=== PATIENT | male | born 1985 | race Caucasian/White ===

== ENCOUNTER 2016-09-08 19:45 | Inpatient (IN) | payer MEDICAID, OTHER ==
[~2016-09-08] VITALS: Ht 170.2 cm; Wt 84.1 kg
[~2016-09-08 19:45] MED LIST: LORA2TAB2 PO; SERT50TA12 PO; TRAZ150 PO
[2016-09-09 02:04] VITALS: BP 135/76
[2016-09-09 03:15] VITALS: BP 135/76
[2016-09-09] MEDS ORDERED: LEVO50 PO (03:51)
[2016-09-09] MEDS ORDERED: LURA40 PO (03:51)
[2016-09-09] MEDS ORDERED: DIVA500T35 PO (03:51)
[2016-09-09] MEDS ORDERED: TRAZ-147 PO (03:51)
[2016-09-09] MEDS ORDERED: SERT100T12 PO (03:51)
[2016-09-09] MEDS ORDERED: QUET300T2 PO (03:51)
[2016-09-09] MEDS ORDERED: PNEUMOCOCCAL VACCINE POLYVALENT 0.5 ML VIAL [PPSV23] IM ONE (04:00)
[2016-09-09] MEDS ORDERED: ACETAMINOPHEN 325 MG TABLET PO PRN (09:30)
[2016-09-09] MEDS ORDERED: LOPERAMIDE HCL 2 MG CAPSULE PO PRN (09:30)
[2016-09-09] MEDS ORDERED: MAG HYDROX/AL HYDROX/SIMETH ES 30 ML SUSPENSION UDCUP PO PRN (09:30)
[2016-09-09] MEDS ORDERED: ONDANSETRON HCL 4 MG TABLET PO PRN (09:30)
[2016-09-09] MEDS ORDERED: PETROLATUM,WHITE 71 GM JELLY TP PRN (09:30)
[2016-09-09] MEDS ORDERED: CloNIDine HCL 0.1 MG TABLET PO PRN (09:30)
[2016-09-09] MEDS ORDERED: MAGNESIUM HYDROXIDE SUSPENSION 30 ML UDCUP PO PRN (09:30)
[2016-09-09] MEDS ORDERED: BENZOCAINE/MENTHOL LOZENGE MM PRN (09:30)
[2016-09-09] MEDS ORDERED: BACITRACIN 28.4 GM OINTMENT TP PRN (09:30)
[2016-09-09] MEDS ORDERED: ALBUTEROL SULFATE HFA 90 MCG/PUFF 8 GM INHALER IH PRN (09:30)
[2016-09-09 12:29] VITALS: BP 125/79
[2016-09-09] MEDS: IBUPROFEN 600 MG TABLET PO PRN (12:49)
[2016-09-09 16:11] VITALS: BP 131/63
[2016-09-09] MEDS: LORazepam 2 MG TABLET PO PRN (18:09)
[2016-09-09] MEDS: ZOLPIDEM TARTRATE 10 MG TABLET PO PRN (20:11)
[2016-09-09] MEDS ORDERED: OLANZapine 5 MG TABLET PO SCH (21:00)
[2016-09-10 00:09] VITALS: BP 108/67
[2016-09-10 08:39] LABS: BASOPHILS % (AUTO) 0.4 % (0.0-2.0); EOSINOPHILS % (AUTO) 2.9 % (1.0-6.0); HEMATOCRIT 36.5 % (41-53); HEMOGLOBIN 12.3 g/dL (13.5-17.5); LYMPHOCYTES # (AUTO) 1.6 K/uL (1.0-4.8); LYMPHOCYTES % (AUTO) 34.3 % (22.0-44.0); MEAN CORPUSCULAR HEMOGLOBIN 31.5 pg (26.0-34.0); MEAN CORPUSCULAR HGB CONC 33.6 G/dL (31.0-37.0); MEAN CORPUSCULAR VOLUME 94 fL (80-100); MONOCYTES # (AUTO) 0.4 K/uL (0.1-1.0); MONOCYTES % (AUTO) 8.9 % (2.0-9.0); NEUTROPHILS # (AUTO) 2.6 K/uL (1.8-7.7); NEUTROPHILS % (AUTO) 53.5 % (40.0-70.0); PLATELET COUNT (AUTO) 211 K/uL (150-450); RED CELL DISTRIBUTION WIDTH 12.6 % (11.5-14.5); WHITE BLOOD COUNT (AUTO) 4.8 K/uL (4.5-11.0)
[2016-09-10] MEDS: FLUoxetine HCL 20 MG CAPSULE PO SCH (08:42)
[2016-09-10 08:49] VITALS: BP 108/60
[2016-09-10 09:02] LABS: APPEARANCE,URINE CLEAR (CLEAR); GLUCOSE, URINE (UA) NEGATIVE (NEGATIVE); KETONES,URINE NEGATIVE (NEGATIVE); LEUKOCYTE ESTERASE ,URINE NEGATIVE (NEGATIVE); OCCULT BLOOD,URINE NEGATIVE (NEGATIVE); PH,URINE 6.5 (5.0-8.0); PROTEIN,URINE NEGATIVE (NEGATIVE)
[2016-09-10 09:05] LABS: ADD UA MICROSCOPIC NO
[2016-09-10 09:21] LABS: ALANINE AMINOTRANSFERASE 44 U/L (12-78); ALBUMIN 3.9 g/dL (3.4-5.0); ANION GAP 10 mmol/L (8-16); ASPARTATE AMINOTRANSFERASE 29 U/L (15-37); BILIRUBIN,TOTAL 0.3 mg/dL (0.1-1.0); CALCIUM, TOTAL 8.4 mg/dL (8.8-10.5); CARBON DIOXIDE 26 mmol/L (22-29); CHLORIDE 102 mmol/L (98-107); CREATININE 0.89 mg/dL (0.60-1.30); GLOMERULAR FILTR. RATE CALC > 60 mL/min (>60); POTASSIUM 4.7 mmol/L (3.5-5.1); SODIUM SERUM 138 mmol/L (136-145); THYROID STIMULATING HORMONE 2.96 uIU/mL (0.36-3.74); TOTAL PROTEIN, SERUM 7.1 g/dL (6.4-8.2); UREA NITROGEN, BLOOD 18 mg/dL (7-18)
[2016-09-10 10:12] LABS: VALPROIC ACID < 3 mcg/mL (50-100)
[2016-09-10] MEDS: LORazepam 2 MG TABLET PO PRN (14:52)
[2016-09-10 16:29] VITALS: BP 133/76
[2016-09-10] MEDS: IBUPROFEN 600 MG TABLET PO PRN (17:05)
[2016-09-10] MEDS: ZOLPIDEM TARTRATE 10 MG TABLET PO PRN (20:40)
[2016-09-10] MEDS ORDERED: OLANZapine 10 MG TABLET PO SCH (21:00)
[2016-09-11 00:12] VITALS: BP 110/62
[2016-09-11] MEDS ORDERED: FERROUS SULFATE 325 MG EC TABLET PO SCH (07:00)
[2016-09-11 08:36] VITALS: BP 127/76
[2016-09-11] MEDS: FLUoxetine HCL 20 MG CAPSULE PO SCH (08:45)
[2016-09-11] MEDS ORDERED: OLAN10TA3 PO (08:57)
[2016-09-11] MEDS ORDERED: FLUO-191 PO (08:57)
[2016-09-11] MEDS ORDERED: FERR-89 PO (08:57)
[2016-09-11] MEDS: IBUPROFEN 600 MG TABLET PO PRN (11:30)
[2016-10-25] MEDS ORDERED: FERR-89 PO (17:58)
== END 2016-09-11 12:05 | disposition home or self-care (01) | DRG 750 ==
LOC: B2S 09-09 02:47
PROVIDERS: ADMIT Psychiatry & Neurology Psychiatry; ATTEND Psychiatry & Neurology Psychiatry
DX: F25.0 Schizoaffective disorder, bipolar type (principal); F17.210 Nicotine dependence, cigarettes, uncomplicated; J45.909 Unspecified asthma, uncomplicated; G47.00 Insomnia, unspecified; K59.00 Constipation, unspecified; Z91.5 Personal history of self-harm; Z90.49 Acquired absence of other specified parts of digestive tract; Z88.8 Allergy status to other drugs, medicaments and biological substances; Z79.51 Long term (current) use of inhaled steroids; Z79.899 Other long term (current) drug therapy
CPT/HCPCS: 80307; 84443; Q0162

== ENCOUNTER 2016-10-01 16:46 | Inpatient (IN) | payer MEDICAID ==
[~2016-10-01] VITALS: Ht 172.7 cm; Wt 82.7 kg
[~2016-10-01 16:46] MED LIST changes: +FERR-89 PO; +FLUO-191 PO; -LORA2TAB2 PO; +OLAN10TA3 PO; -SERT50TA12 PO; -TRAZ150 PO
[2016-10-01 17:22] VITALS: BP 126/77
[2016-10-01] MEDS ORDERED: OLANZapine 5 MG RAPDIS TABLET PO PRN (17:30)
[2016-10-01 18:30] VITALS: BP 133/73
[2016-10-01] MEDS ORDERED: IBUPROFEN 600 MG TABLET PO PRN (19:45)
[2016-10-01] MEDS ORDERED: PNEUMOCOCCAL VACCINE POLYVALENT 0.5 ML VIAL [PPSV23] IM ONE (20:00)
[2016-10-01] MEDS: ZOLPIDEM TARTRATE 10 MG TABLET PO PRN (21:03)
[2016-10-02 08:47] VITALS: BP 109/65
[2016-10-02 10:33] LABS: GLUCOSE, URINE (UA) NEGATIVE (NEGATIVE); KETONES,URINE NEGATIVE (NEGATIVE); LEUKOCYTE ESTERASE ,URINE NEGATIVE (NEGATIVE); OCCULT BLOOD,URINE NEGATIVE (NEGATIVE); PH,URINE 5.5 (5.0-8.0); PROTEIN,URINE NEGATIVE (NEGATIVE)
[2016-10-02 11:25] LABS: ADD UA MICROSCOPIC YES
[2016-10-02 11:26] LABS: APPEARANCE,URINE SLIGHTLY CLOUDY (CLEAR)
[2016-10-02 11:28] LABS: RBC,URINE None Seen /HPF (0-2); WBC,URINE None Seen /HPF (0-5)
[2016-10-02 11:29] LABS: CALCIUM OXALATE CRYSTALS,UR Few /LPF (None Seen); SQUAMOUS EPITHELIAL CELL,UR Rare /LPF (None Seen)
[2016-10-02] MEDS: FLUoxetine HCL 20 MG CAPSULE PO SCH (12:23)
[2016-10-02] MEDS ORDERED: MAGNESIUM HYDROXIDE SUSPENSION 30 ML UDCUP PO PRN (14:00)
[2016-10-02] MEDS ORDERED: BACITRACIN 28.4 GM OINTMENT TP PRN (14:00)
[2016-10-02] MEDS ORDERED: BENZOCAINE/MENTHOL LOZENGE MM PRN (14:00)
[2016-10-02] MEDS ORDERED: CloNIDine HCL 0.1 MG TABLET PO PRN (14:00)
[2016-10-02] MEDS ORDERED: LOPERAMIDE HCL 2 MG CAPSULE PO PRN (14:00)
[2016-10-02] MEDS ORDERED: ONDANSETRON HCL 4 MG TABLET PO PRN (14:00)
[2016-10-02] MEDS ORDERED: PETROLATUM,WHITE 71 GM JELLY TP PRN (14:00)
[2016-10-02] MEDS ORDERED: ALBUTEROL SULFATE HFA 90 MCG/PUFF 8 GM INHALER IH PRN (14:00)
[2016-10-02] MEDS ORDERED: MAG HYDROX/AL HYDROX/SIMETH ES 30 ML SUSPENSION UDCUP PO PRN (14:00)
[2016-10-02] MEDS ORDERED: ACETAMINOPHEN 325 MG TABLET PO PRN (14:00)
[2016-10-02 14:01] VITALS: BP 133/52
[2016-10-02 16:16] VITALS: BP 118/77
[2016-10-02] MEDS: LORazepam 2 MG TABLET PO PRN (19:10)
[2016-10-02] MEDS: ZOLPIDEM TARTRATE 10 MG TABLET PO PRN (20:11)
[2016-10-02] MEDS: IBUPROFEN 600 MG TABLET PO PRN (20:12)
[2016-10-02] MEDS: OLANZapine 10 MG TABLET PO SCH (20:12)
[2016-10-03 08:37] LABS: BASOPHILS # (AUTO) 0.02 K/uL (0.00-0.20); BASOPHILS % (AUTO) 0.4 % (0.0-2.0); EOSINOPHILS # (AUTO) 0.19 K/uL (0.00-0.70); EOSINOPHILS % (AUTO) 4.03 % (1.0-6.0); HEMATOCRIT 37.2 % (41-53); HEMOGLOBIN 12.8 g/dL (13.5-17.5); LYMPHOCYTES # (AUTO) 1.4 K/uL (1.0-4.8); LYMPHOCYTES % (AUTO) 29.3 % (22.0-44.0); MEAN CORPUSCULAR HEMOGLOBIN 31.6 pg (26.0-34.0); MEAN CORPUSCULAR HGB CONC 34.3 G/dL (31.0-37.0); MEAN CORPUSCULAR VOLUME 92 fL (80-100); MONOCYTES # (AUTO) 0.4 K/uL (0.1-1.0); MONOCYTES % (AUTO) 7.9 % (2.0-9.0); NEUTROPHILS # (AUTO) 2.8 K/uL (1.8-7.7); NEUTROPHILS % (AUTO) 58.3 % (40.0-70.0); PLATELET COUNT (AUTO) 203 K/uL (150-450); RED BLOOD CELL COUNT(AUTO) 4.03 MIL/uL (4.50-5.90); RED CELL DISTRIBUTION WIDTH 12.9 % (11.5-14.5); WHITE BLOOD COUNT (AUTO) 4.8 K/uL (4.5-11.0)
[2016-10-03 09:26] VITALS: BP 124/72
[2016-10-03] MEDS: FLUoxetine HCL 20 MG CAPSULE PO SCH (09:44)
[2016-10-03 10:02] LABS: ALANINE AMINOTRANSFERASE 45 U/L (12-78); ALBUMIN 3.7 g/dL (3.4-5.0); ANION GAP 8 mmol/L (8-16); ASPARTATE AMINOTRANSFERASE 38 U/L (15-37); BILIRUBIN,TOTAL 0.2 mg/dL (0.1-1.0); CALCIUM, TOTAL 7.7 mg/dL (8.8-10.5); CARBON DIOXIDE 27 mmol/L (22-29); CHLORIDE 105 mmol/L (98-107); CREATININE 0.83 mg/dL (0.60-1.30); GLOMERULAR FILTR. RATE CALC > 60 mL/min (>60); POTASSIUM 4.2 mmol/L (3.5-5.1); SODIUM SERUM 140 mmol/L (136-145); TOTAL PROTEIN, SERUM 7.1 g/dL (6.4-8.2); UREA NITROGEN, BLOOD 14 mg/dL (7-18)
[2016-10-03 14:20] VITALS: BP 124/82
[2016-10-03] MEDS: IBUPROFEN 600 MG TABLET PO PRN (14:20)
[2016-10-03 16:17] VITALS: BP 111/68
[2016-10-03] MEDS: LORazepam 2 MG TABLET PO PRN (17:43)
[2016-10-03] MEDS: OLANZapine 10 MG TABLET PO SCH (20:03)
[2016-10-03] MEDS: ZOLPIDEM TARTRATE 10 MG TABLET PO PRN (20:04)
[2016-10-04 03:37] VITALS: BP 116/87
[2016-10-04 08:52] VITALS: BP 116/62
[2016-10-04] MEDS: FLUoxetine HCL 20 MG CAPSULE PO SCH (09:10)
[2016-10-04] MEDS: IBUPROFEN 600 MG TABLET PO PRN (09:11)
[2016-10-25] MEDS ORDERED: FERR-89 PO (17:58)
== END 2016-10-04 15:05 | disposition home or self-care (01) | DRG 750 ==
LOC: B2S 17:32
PROVIDERS: ADMIT Psychiatry & Neurology Psychiatry; ATTEND Psychiatry & Neurology Psychiatry
DX: F25.0 Schizoaffective disorder, bipolar type (principal); F41.9 Anxiety disorder, unspecified; J45.909 Unspecified asthma, uncomplicated; G47.00 Insomnia, unspecified; K59.00 Constipation, unspecified; R51 Headache; F17.210 Nicotine dependence, cigarettes, uncomplicated; Z90.49 Acquired absence of other specified parts of digestive tract; Z71.6 Tobacco abuse counseling; Z91.018 Allergy to other foods; Z79.899 Other long term (current) drug therapy; Z28.21 Immunization not carried out because of patient refusal
CPT/HCPCS: 80307; 87081; 90471

== ENCOUNTER 2016-10-22 12:50 | Inpatient (IN) | payer MEDICAID ==
[~2016-10-22] VITALS: Ht 175.3 cm; Wt 81.2 kg
[~2016-10-22 12:50] MED LIST changes: -FERR-89 PO
[2016-10-22 14:30] VITALS: BP 115/69
[2016-10-22] MEDS ORDERED: ZOLPIDEM TARTRATE 10 MG TABLET PO PRN (15:00)
[2016-10-22] MEDS ORDERED: LORazepam 2 MG TABLET PO PRN (15:00)
[2016-10-22] MEDS ORDERED: OLANZapine 5 MG RAPDIS TABLET PO PRN (15:00)
[2016-10-22 19:44] VITALS: BP 129/71
[2016-10-22] MEDS: OLANZapine 10 MG TABLET PO SCH (20:41)
[2016-10-23 05:14] VITALS: BP 125/78
[2016-10-23 08:40] LABS: APPEARANCE,URINE CLEAR (CLEAR); GLUCOSE, URINE (UA) NEGATIVE (NEGATIVE); KETONES,URINE NEGATIVE (NEGATIVE); LEUKOCYTE ESTERASE ,URINE NEGATIVE (NEGATIVE); OCCULT BLOOD,URINE NEGATIVE (NEGATIVE); PROTEIN,URINE NEGATIVE (NEGATIVE)
[2016-10-23 08:44] LABS: ADD UA MICROSCOPIC NO
[2016-10-23] MEDS: FLUoxetine HCL 20 MG CAPSULE PO SCH (09:04)
[2016-10-23] MEDS ORDERED: ONDANSETRON HCL 4 MG TABLET PO PRN (10:30)
[2016-10-23] MEDS ORDERED: PETROLATUM,WHITE 71 GM JELLY TP PRN (10:30)
[2016-10-23] MEDS ORDERED: BACITRACIN 28.4 GM OINTMENT TP PRN (10:30)
[2016-10-23] MEDS ORDERED: BENZOCAINE/MENTHOL LOZENGE MM PRN (10:30)
[2016-10-23] MEDS ORDERED: MAGNESIUM HYDROXIDE SUSPENSION 30 ML UDCUP PO PRN (10:30)
[2016-10-23] MEDS ORDERED: MAG HYDROX/AL HYDROX/SIMETH ES 30 ML SUSPENSION UDCUP PO PRN (10:30)
[2016-10-23] MEDS ORDERED: CloNIDine HCL 0.1 MG TABLET PO PRN (10:30)
[2016-10-23] MEDS ORDERED: ALBUTEROL SULFATE HFA 90 MCG/PUFF 8 GM INHALER IH PRN (10:30)
[2016-10-23] MEDS ORDERED: LOPERAMIDE HCL 2 MG CAPSULE PO PRN (10:30)
[2016-10-23 16:22] VITALS: BP 137/81
[2016-10-23] MEDS: IBUPROFEN 600 MG TABLET PO PRN (16:52)
[2016-10-23 17:50] VITALS: BP_SYST 109; BP_SYST 126; BP_DIAS 72; BP_DIAS 74
[2016-10-23] MEDS: OLANZapine 10 MG TABLET PO SCH (20:00)
[2016-10-24 06:42] VITALS: BP 114/74
[2016-10-24 07:57] LABS: BASOPHILS % (AUTO) 0.3 % (0.0-2.0); EOSINOPHILS % (AUTO) 3.7 % (1.0-6.0); HEMATOCRIT 39.9 % (41-53); HEMOGLOBIN 13.4 g/dL (13.5-17.5); LYMPHOCYTES # (AUTO) 1.9 K/uL (1.0-4.8); LYMPHOCYTES % (AUTO) 37.6 % (22.0-44.0); MEAN CORPUSCULAR HEMOGLOBIN 31.5 pg (26.0-34.0); MEAN CORPUSCULAR HGB CONC 33.6 G/dL (31.0-37.0); MEAN CORPUSCULAR VOLUME 94 fL (80-100); MONOCYTES # (AUTO) 0.4 K/uL (0.1-1.0); MONOCYTES % (AUTO) 7.8 % (2.0-9.0); NEUTROPHILS # (AUTO) 2.6 K/uL (1.8-7.7); NEUTROPHILS % (AUTO) 50.6 % (40.0-70.0); PLATELET COUNT (AUTO) 193 K/uL (150-450); RED BLOOD CELL COUNT(AUTO) 4.25 MIL/uL (4.50-5.90); RED CELL DISTRIBUTION WIDTH 13.3 % (11.5-14.5); WHITE BLOOD COUNT (AUTO) 5.2 K/uL (4.5-11.0)
[2016-10-24 08:19] LABS: ALANINE AMINOTRANSFERASE 52 U/L (12-78); ALBUMIN 3.9 g/dL (3.4-5.0); ANION GAP 10 mmol/L (8-16); ASPARTATE AMINOTRANSFERASE 31 U/L (15-37); BILIRUBIN,TOTAL 0.2 mg/dL (0.1-1.0); CALCIUM, TOTAL 8.4 mg/dL (8.8-10.5); CARBON DIOXIDE 27 mmol/L (22-29); CHLORIDE 102 mmol/L (98-107); CREATININE 0.78 mg/dL (0.60-1.30); GLOMERULAR FILTR. RATE CALC > 60 mL/min (>60); POTASSIUM 4.7 mmol/L (3.5-5.1); SODIUM SERUM 139 mmol/L (136-145); TOTAL PROTEIN, SERUM 7.5 g/dL (6.4-8.2); UREA NITROGEN, BLOOD 21 mg/dL (7-18)
[2016-10-24 08:35] VITALS: BP 131/78
[2016-10-24] MEDS: FLUoxetine HCL 20 MG CAPSULE PO SCH (08:58)
[2016-10-24] MEDS: IBUPROFEN 600 MG TABLET PO PRN (14:52)
[2016-10-24 16:08] VITALS: BP 132/67
[2016-10-24] MEDS: OLANZapine 10 MG TABLET PO SCH (20:02)
[2016-10-24 21:40] VITALS: BP 127/73
[2016-10-24] MEDS: ACETAMINOPHEN 325 MG TABLET PO PRN (21:46)
[2016-10-25 06:33] VITALS: BP 101/64
[2016-10-25] MEDS: FERROUS SULFATE 325 MG EC TABLET PO SCH ×2 (06:39→16:11)
[2016-10-25] MEDS: FLUoxetine HCL 20 MG CAPSULE PO SCH (10:01)
[2016-10-25 12:55] VITALS: BP 121/70
[2016-10-25] MEDS: ACETAMINOPHEN 325 MG TABLET PO PRN (12:55)
[2016-10-25 16:00] VITALS: BP 115/75
[2016-10-25] MEDS ORDERED: FERS325 PO (17:58)
[2016-10-25 20:34] VITALS: BP 122/73
[2016-10-25] MEDS: IBUPROFEN 600 MG TABLET PO PRN (20:34)
[2016-10-25] MEDS: OLANZapine 10 MG TABLET PO SCH (20:34)
[2016-10-26] MEDS: FERROUS SULFATE 325 MG EC TABLET PO SCH (06:37)
[2016-10-26 08:43] VITALS: BP 121/69
[2016-10-26] MEDS: FLUoxetine HCL 20 MG CAPSULE PO SCH (08:59)
== END 2016-10-26 13:30 | disposition home or self-care (01) | DRG 750 ==
LOC: B2S 15:03
PROVIDERS: ADMIT Psychiatry & Neurology Psychiatry; ATTEND Psychiatry & Neurology Psychiatry
DX: F25.0 Schizoaffective disorder, bipolar type (principal); R45.851 Suicidal ideations; E58 Dietary calcium deficiency; F17.210 Nicotine dependence, cigarettes, uncomplicated; K59.00 Constipation, unspecified; Z62.819 Personal history of unspecified abuse in childhood; D64.9 Anemia, unspecified; J45.909 Unspecified asthma, uncomplicated; Z71.6 Tobacco abuse counseling; Z90.49 Acquired absence of other specified parts of digestive tract; Z91.018 Allergy to other foods; Z79.899 Other long term (current) drug therapy; Z63.0 Problems in relationship with spouse or partner
CPT/HCPCS: 80307; 87081; J3535

== ENCOUNTER 2016-11-13 18:32 | Inpatient (IN) | payer MEDICAID, OTHER ==
[~2016-11-13] VITALS: Ht 175.3 cm; Wt 82.2 kg
[~2016-11-13 18:32] MED LIST changes: +FERS325 PO
[2016-11-13] MEDS ORDERED: LURA40 PO (21:15)
[2016-11-13] MEDS ORDERED: OLAN2.5T3 PO (21:15)
[2016-11-13] MEDS ORDERED: QUET25TA PO (21:15)
[2016-11-13] MEDS ORDERED: DIVA125T PO (21:15)
[2016-11-13] MEDS ORDERED: PALI156D IM (21:15)
[2016-11-13 22:11] LABS: BASOPHILS % (AUTO) 0.3 % (0.0-2.0); EOSINOPHILS % (AUTO) 5.3 % (1.0-6.0); HEMATOCRIT 39.6 % (41-53); HEMOGLOBIN 13.1 g/dL (13.5-17.5); LYMPHOCYTES # (AUTO) 2.2 K/uL (1.0-4.8); LYMPHOCYTES % (AUTO) 38.1 % (22.0-44.0); MEAN CORPUSCULAR HGB CONC 33.2 G/dL (31.0-37.0); MEAN CORPUSCULAR VOLUME 94 fL (80-100); MONOCYTES # (AUTO) 0.5 K/uL (0.1-1.0); MONOCYTES % (AUTO) 8.6 % (2.0-9.0); NEUTROPHILS # (AUTO) 2.7 K/uL (1.8-7.7); NEUTROPHILS % (AUTO) 47.7 % (40.0-70.0); PLATELET COUNT (AUTO) 203 K/uL (150-450); RED BLOOD CELL COUNT(AUTO) 4.23 MIL/uL (4.50-5.90); RED CELL DISTRIBUTION WIDTH 13.1 % (11.5-14.5); WHITE BLOOD COUNT (AUTO) 5.7 K/uL (4.5-11.0)
[2016-11-13 22:33] LABS: ANION GAP 12 mmol/L (8-16); CALCIUM, TOTAL 8.9 mg/dL (8.8-10.5); CARBON DIOXIDE 27 mmol/L (22-29); CHLORIDE 102 mmol/L (98-107); CREATININE 0.86 mg/dL (0.60-1.30); GLOMERULAR FILTR. RATE CALC > 60 mL/min (>60); POTASSIUM 4.3 mmol/L (3.5-5.1); SODIUM SERUM 141 mmol/L (136-145); UREA NITROGEN, BLOOD 13 mg/dL (7-18)
[2016-11-13 22:45] LABS: ALBUMIN 4.1 g/dL (3.4-5.0); ASPARTATE AMINOTRANSFERASE 30 U/L (15-37); BILIRUBIN,TOTAL 0.3 mg/dL (0.1-1.0); TOTAL PROTEIN, SERUM 7.7 g/dL (6.4-8.2)
[2016-11-13 22:57] LABS: ALANINE AMINOTRANSFERASE 45 U/L (12-78)
[2016-11-14] MEDS ORDERED: LORazepam 2 MG TABLET PO PRN (01:00)
[2016-11-14] MEDS ORDERED: HALOPERIDOL 5 MG TABLET PO PRN (01:00)
[2016-11-14 16:34] VITALS: BP 123/70
[2016-11-14] MEDS: ZOLPIDEM TARTRATE 10 MG TABLET PO PRN (20:05)
[2016-11-15] MEDS ORDERED: PNEUMOCOCCAL VACCINE POLYVALENT 0.5 ML VIAL [PPSV23] IM ONE (01:30)
[2016-11-15] MEDS ORDERED: MAG HYDROX/AL HYDROX/SIMETH ES 30 ML SUSPENSION UDCUP PO PRN (07:45)
[2016-11-15] MEDS ORDERED: MAGNESIUM HYDROXIDE SUSPENSION 30 ML UDCUP PO PRN (07:45)
[2016-11-15] MEDS ORDERED: ONDANSETRON HCL 4 MG TABLET PO PRN (07:45)
[2016-11-15] MEDS ORDERED: BENZOCAINE/MENTHOL LOZENGE MM PRN (07:45)
[2016-11-15] MEDS ORDERED: PETROLATUM,WHITE 71 GM JELLY TP PRN (07:45)
[2016-11-15] MEDS ORDERED: ACETAMINOPHEN 325 MG TABLET PO PRN (07:45)
[2016-11-15] MEDS ORDERED: LOPERAMIDE HCL 2 MG CAPSULE PO PRN (07:45)
[2016-11-15] MEDS ORDERED: CloNIDine HCL 0.1 MG TABLET PO PRN (07:45)
[2016-11-15] MEDS ORDERED: ALBUTEROL SULFATE HFA 90 MCG/PUFF 8 GM INHALER IH PRN (07:45)
[2016-11-15 08:15] VITALS: BP 128/80
[2016-11-15] MEDS: BACITRACIN 28.4 GM OINTMENT TP PRN (11:29)
[2016-11-15 13:07] VITALS: BP 125/75
[2016-11-15] MEDS: IBUPROFEN 600 MG TABLET PO PRN (13:08)
[2016-11-15 14:08] VITALS: BP 127/75
[2016-11-15 16:07] VITALS: BP 135/86
[2016-11-15] MEDS: HALOPERIDOL 5 MG TABLET PO SCH (17:17)
[2016-11-15] MEDS: ZOLPIDEM TARTRATE 10 MG TABLET PO PRN (20:01)
[2016-11-16 08:23] VITALS: BP 131/69
[2016-11-16] MEDS: FLUoxetine HCL 20 MG CAPSULE PO SCH (09:11)
[2016-11-16] MEDS: HALOPERIDOL 5 MG TABLET PO SCH (09:11)
[2016-11-16] MEDS: IBUPROFEN 600 MG TABLET PO PRN (11:12)
[2016-11-16] MEDS ORDERED: DiphenhydrAMINE HCL 50 MG/ML VIAL IM ONE (15:00)
[2016-11-16 16:00] VITALS: BP 110/65
[2016-11-16] MEDS: BENZTROPINE MESYLATE 0.5 MG TABLET PO SCH (20:29)
[2016-11-16] MEDS: ZOLPIDEM TARTRATE 10 MG TABLET PO PRN (20:29)
[2016-11-17] MEDS: FERROUS SULFATE 325 MG EC TABLET PO SCH ×2 (06:36→16:16)
[2016-11-17 06:59] VITALS: BP 112/65
[2016-11-17 08:17] VITALS: BP 116/58
[2016-11-17] MEDS: FLUoxetine HCL 20 MG CAPSULE PO SCH (08:42)
[2016-11-17] MEDS: BENZTROPINE MESYLATE 0.5 MG TABLET PO SCH ×2 (08:42→16:15)
[2016-11-17] MEDS: BACITRACIN 28.4 GM OINTMENT TP PRN (10:00)
[2016-11-17] MEDS ORDERED: PALIPERIDONE PALMITATE 234 MG/1.5 ML SYRINGE IM SCH (12:00)
[2016-11-17] MEDS ORDERED: BENZ0.5T6 PO (14:02)
== END 2016-11-17 17:10 | disposition home or self-care (01) | DRG 750 ==
LOC: EMS 18:33 → EEVIPCON 18:33 → B2S 11-14 13:36
PROVIDERS: ADMIT Psychiatry & Neurology Psychiatry; ATTEND Psychiatry & Neurology Psychiatry
DX: F25.0 Schizoaffective disorder, bipolar type (principal); R45.851 Suicidal ideations; F79 Unspecified intellectual disabilities; F20.0 Paranoid schizophrenia; F17.210 Nicotine dependence, cigarettes, uncomplicated; J45.909 Unspecified asthma, uncomplicated; K59.00 Constipation, unspecified; Z71.6 Tobacco abuse counseling; Z79.899 Other long term (current) drug therapy; Z90.49 Acquired absence of other specified parts of digestive tract; Z91.018 Allergy to other foods; Z28.21 Immunization not carried out because of patient refusal
CPT/HCPCS: 87081; 99285; G0480; J1200; J3535

== ENCOUNTER 2017-06-15 18:23 | Inpatient (IN) | payer MEDICAID, OTHER ==
[~2017-06-15] VITALS: Ht 170.2 cm; Wt 88.3 kg
[~2017-06-15 18:23] MED LIST changes: -FERS325 PO; -FLUO-191 PO; +TRAZ-147 PO
[2017-06-15] MEDS ORDERED: DIVA125T PO (18:29)
[2017-06-15] MEDS ORDERED: LORA1TAB3 PO (18:29)
[2017-06-15 20:10] LABS: BASOPHILS # (AUTO) 0.03 K/uL (0.00-0.20); BASOPHILS % (AUTO) 0.4 % (0.0-2.0); EOSINOPHILS # (AUTO) 0.07 K/uL (0.00-0.70); EOSINOPHILS % (AUTO) 0.96 % (1.0-6.0); HEMATOCRIT 41.4 % (41-53); HEMOGLOBIN 14.1 g/dL (13.5-17.5); LYMPHOCYTES # (AUTO) 2.2 K/uL (1.0-4.8); LYMPHOCYTES % (AUTO) 29.1 % (22.0-44.0); MEAN CORPUSCULAR HEMOGLOBIN 31.3 pg (26.0-34.0); MEAN CORPUSCULAR HGB CONC 34.2 G/dL (31.0-37.0); MEAN CORPUSCULAR VOLUME 92 fL (80-100); MONOCYTES # (AUTO) 0.4 K/uL (0.1-1.0); MONOCYTES % (AUTO) 5.8 % (2.0-9.0); NEUTROPHILS # (AUTO) 4.8 K/uL (1.8-7.7); NEUTROPHILS % (AUTO) 63.8 % (40.0-70.0); PLATELET COUNT (AUTO) 243 K/uL (150-450); RED BLOOD CELL COUNT(AUTO) 4.52 MIL/uL (4.50-5.90); WHITE BLOOD COUNT (AUTO) 7.5 K/uL (4.5-11.0)
[2017-06-15 21:12] LABS: ANION GAP 15 mmol/L (8-16); CALCIUM, TOTAL 8.6 mg/dL (8.8-10.5); CARBON DIOXIDE 23 mmol/L (22-29); CHLORIDE 98 mmol/L (98-107); CREATININE 0.84 mg/dL (0.60-1.30); GLOMERULAR FILTR. RATE CALC > 60 mL/min (>60); POTASSIUM 3.9 mmol/L (3.5-5.1); SODIUM SERUM 136 mmol/L (136-145); UREA NITROGEN, BLOOD 10 mg/dL (7-18)
[2017-06-15 21:16] LABS: ALANINE AMINOTRANSFERASE 57 U/L (12-78); ALBUMIN 4.4 g/dL (3.4-5.0); ASPARTATE AMINOTRANSFERASE 46 U/L (15-37); BILIRUBIN,TOTAL 0.3 mg/dL (0.1-1.0); TOTAL PROTEIN, SERUM 8.1 g/dL (6.4-8.2); VALPROIC ACID 10 mcg/mL (50-100)
[2017-06-16] MEDS ORDERED: LORazepam 1 MG TABLET PO ONE (01:15)
[2017-06-16] MEDS ORDERED: OLANZapine 5 MG TABLET PO ONE (01:15)
[2017-06-16] MEDS ORDERED: LORazepam 2 MG TABLET PO PRN (01:30)
[2017-06-16] MEDS ORDERED: OLANZapine 5 MG RAPDIS TABLET PO PRN (01:30)
[2017-06-16] MEDS ORDERED: ZOLPIDEM TARTRATE 10 MG TABLET PO PRN (01:30)
[2017-06-16 03:28] VITALS: BP 119/77
[2017-06-16] MEDS ORDERED: INFLUENZA VIRUS VACCINE QVS 2017-18 (3YR+)/PF 60 MCG/0.5 ML SYRINGE IM ONE (03:30)
[2017-06-16 19:56] VITALS: BP 131/77
[2017-06-16] MEDS: OLANZapine 10 MG TABLET PO SCH (20:16)
[2017-06-16] MEDS: TraZODone HCL 100 MG TABLET PO SCH (20:17)
[2017-06-17 09:05] VITALS: BP 103/75
[2017-06-17] MEDS: FLUoxetine HCL 20 MG CAPSULE PO SCH (12:21)
[2017-06-17 16:30] VITALS: BP 138/78
[2017-06-17] MEDS ORDERED: ACETAMINOPHEN 325 MG TABLET PO PRN (16:45)
[2017-06-17 17:18] VITALS: BP 141/72
[2017-06-17] MEDS: IBUPROFEN 600 MG TABLET PO PRN (17:20)
[2017-06-17 18:18] VITALS: BP 132/70
[2017-06-17] MEDS: TraZODone HCL 100 MG TABLET PO SCH (20:06)
[2017-06-17] MEDS: OLANZapine 10 MG TABLET PO SCH (20:07)
[2017-06-17] MEDS ORDERED: BISACODYL 10 MG RECTAL RECTAL SUPPOSITORY PR PRN (20:15)
[2017-06-17] MEDS ORDERED: DOCUSATE SODIUM 250 MG CAPSULE PO PRN (20:15)
[2017-06-17] MEDS ORDERED: LACTULOSE 20 GM/30 ML SOLUTION UDCUP PO PRN (20:15)
[2017-06-18 08:30] VITALS: BP 100/68
[2017-06-18] MEDS: FLUoxetine HCL 20 MG CAPSULE PO SCH (09:11)
[2017-06-18] MEDS: DOCUSATE SODIUM 250 MG CAPSULE PO SCH ×2 (09:12→16:50)
[2017-06-18 09:40] LABS: CHOL/HDL RATIO 5.3 (4.2-7.3)
[2017-06-18 11:31] VITALS: BP 111/79
[2017-06-18] MEDS: IBUPROFEN 600 MG TABLET PO PRN (11:31)
[2017-06-18 17:18] VITALS: BP 119/86
[2017-06-18] MEDS: OLANZapine 10 MG TABLET PO SCH (21:37)
[2017-06-18] MEDS: TraZODone HCL 100 MG TABLET PO SCH (21:37)
[2017-06-19 08:32] VITALS: BP 119/74
[2017-06-19] MEDS: FLUoxetine HCL 20 MG CAPSULE PO SCH (09:14)
[2017-06-19] MEDS: DOCUSATE SODIUM 250 MG CAPSULE PO SCH ×2 (09:14→17:12)
[2017-06-19 16:15] VITALS: BP 126/86
[2017-06-19 19:38] VITALS: BP 119/74
[2017-06-19] MEDS: IBUPROFEN 600 MG TABLET PO PRN (19:41)
[2017-06-19] MEDS: TraZODone HCL 100 MG TABLET PO SCH (20:35)
[2017-06-19] MEDS: OLANZapine 10 MG TABLET PO SCH (20:35)
[2017-06-19 20:38] VITALS: BP 121/81
[2017-06-20] MEDS: DOCUSATE SODIUM 250 MG CAPSULE PO SCH (08:46)
[2017-06-20] MEDS: FLUoxetine HCL 20 MG CAPSULE PO SCH (08:46)
[2017-06-20 08:57] VITALS: BP 118/75
[2017-06-20] MEDS: IBUPROFEN 600 MG TABLET PO PRN (09:56)
[2017-06-20] MEDS ORDERED: FLUO-191 PO (13:03)
[2017-06-20] MEDS ORDERED: DOCU250C91 PO (13:05)
== END 2017-06-20 13:30 | disposition home or self-care (01) | DRG 750 ==
LOC: EMS 18:25 → 3EI 06-16 02:00
PROVIDERS: ADMIT Psychiatry & Neurology Psychiatry; ATTEND Psychiatry & Neurology Psychiatry
DX: F25.0 Schizoaffective disorder, bipolar type (principal); R45.851 Suicidal ideations; K72.90 Hepatic failure, unspecified without coma; F79 Unspecified intellectual disabilities; F41.9 Anxiety disorder, unspecified; J45.909 Unspecified asthma, uncomplicated; Z28.21 Immunization not carried out because of patient refusal; Z88.8 Allergy status to other drugs, medicaments and biological substances; Z79.899 Other long term (current) drug therapy; Z90.49 Acquired absence of other specified parts of digestive tract
CPT/HCPCS: 99285; G0480

== ENCOUNTER 2017-09-20 12:50 | Inpatient (IN) | payer MEDICAID ==
[~2017-09-20] VITALS: Ht 172.7 cm; Wt 87.6 kg
[~2017-09-20 12:50] MED LIST changes: +DOCU250C91 PO; +FLUO-191 PO
[2017-09-20 12:59] VITALS: BP 124/71
[2017-09-20] MEDS ORDERED: ZOLPIDEM TARTRATE 10 MG TABLET PO PRN (13:15)
[2017-09-20] MEDS ORDERED: OLANZapine 5 MG RAPDIS TABLET PO PRN (13:15)
[2017-09-20] MEDS ORDERED: LORazepam 2 MG TABLET PO PRN (13:15)
[2017-09-20 16:15] VITALS: BP 123/72
[2017-09-20] MEDS: OLANZapine 10 MG TABLET PO SCH (21:07)
[2017-09-20] MEDS: TraZODone HCL 100 MG TABLET PO SCH (21:07)
[2017-09-21] MEDS: NEOMYCIN/POLYMYXIN B/HYDROCORT 7.5 ML OPHTHALMIC SUSPENSION OU SCH ×5 (00:04→18:53)
[2017-09-21 06:31] VITALS: BP 102/61
[2017-09-21 08:33] VITALS: BP 104/69
[2017-09-21] MEDS: FLUoxetine HCL 20 MG CAPSULE PO SCH (08:56)
[2017-09-21 09:13] LABS: APPEARANCE,URINE CLEAR (CLEAR); BILIRUBIN,URINE NEGATIVE (NEGATIVE); GLUCOSE, URINE (UA) NEGATIVE (NEGATIVE); KETONES,URINE NEGATIVE (NEGATIVE); LEUKOCYTE ESTERASE ,URINE NEGATIVE (NEGATIVE); NITRATE,URINE NEGATIVE (NEGATIVE); OCCULT BLOOD,URINE NEGATIVE (NEGATIVE); PROTEIN,URINE NEGATIVE (NEGATIVE); UROBILINOGEN,URINE 0.2 mg/dL (<=1.0)
[2017-09-21 09:24] LABS: AMPHET/METH SCREEN,URINE NEGATIVE (NEGATIVE); BARBITURATE SCREEN, URINE NEGATIVE (NEGATIVE); BENZODIAZEPINES SCREEN,URINE NEGATIVE (NEGATIVE); CANNABINOID SCREEN,URINE NEGATIVE (NEGATIVE); COCAINE SCREEN,URINE NEGATIVE (NEGATIVE); METHADONE SCREEN, URINE NEGATIVE (NEGATIVE); OPIATE SCREEN,URINE NEGATIVE (NEGATIVE)
[2017-09-21 09:28] LABS: PHENCYCLIDINE SCREEN,URINE NEGATIVE (NEGATIVE)
[2017-09-21 16:32] VITALS: BP 118/69
[2017-09-21] MEDS: TraZODone HCL 100 MG TABLET PO SCH (20:29)
[2017-09-21] MEDS: OLANZapine 10 MG TABLET PO SCH (20:29)
[2017-09-22] MEDS: NEOMYCIN/POLYMYXIN B/HYDROCORT 7.5 ML OPHTHALMIC SUSPENSION OU SCH ×5 (06:00→23:18)
[2017-09-22 06:37] VITALS: BP 120/86
[2017-09-22 08:23] VITALS: BP 120/62
[2017-09-22] MEDS: FLUoxetine HCL 20 MG CAPSULE PO SCH (09:01)
[2017-09-22] MEDS ORDERED: ACETAMINOPHEN 325 MG TABLET PO PRN (13:45)
[2017-09-22] MEDS: IBUPROFEN 600 MG TABLET PO PRN (13:55)
[2017-09-22 16:10] VITALS: BP 129/79
[2017-09-22] MEDS: TraZODone HCL 100 MG TABLET PO SCH (20:00)
[2017-09-22] MEDS: OLANZapine 10 MG TABLET PO SCH (20:00)
[2017-09-23] MEDS: NEOMYCIN/POLYMYXIN B/HYDROCORT 7.5 ML OPHTHALMIC SUSPENSION OU SCH ×2 (06:28→12:53)
[2017-09-23 07:09] VITALS: BP 124/85
[2017-09-23 08:31] LABS: BASOPHILS % (AUTO) 0.4 % (0.0-2.0); EOSINOPHILS % (AUTO) 1.5 % (1.0-6.0); HEMATOCRIT 40.5 % (41-53); HEMOGLOBIN 14.2 g/dL (13.5-17.5); LYMPHOCYTES # (AUTO) 1.7 K/uL (1.0-4.8); LYMPHOCYTES % (AUTO) 29.2 % (22.0-44.0); MEAN CORPUSCULAR HEMOGLOBIN 31.5 pg (26.0-34.0); MEAN CORPUSCULAR HGB CONC 35.1 G/dL (31.0-37.0); MEAN CORPUSCULAR VOLUME 90 fL (80-100); MONOCYTES # (AUTO) 0.4 K/uL (0.1-1.0); MONOCYTES % (AUTO) 7.6 % (2.0-9.0); NEUTROPHILS # (AUTO) 3.5 K/uL (1.8-7.7); NEUTROPHILS % (AUTO) 61.3 % (40.0-70.0); PLATELET COUNT (AUTO) 238 K/uL (150-450); RED BLOOD CELL COUNT(AUTO) 4.51 MIL/uL (4.50-5.90)
[2017-09-23] MEDS: FLUoxetine HCL 20 MG CAPSULE PO SCH (08:47)
[2017-09-23 08:57] VITALS: BP 122/78
[2017-09-23 09:02] LABS: ALANINE AMINOTRANSFERASE 62 U/L (12-78); ALBUMIN 4.2 g/dL (3.4-5.0); ALKALINE PHOSPHATASE 123 U/L (46-116); ANION GAP 9 mmol/L (8-16); ASPARTATE AMINOTRANSFERASE 40 U/L (15-37); BILIRUBIN,TOTAL 0.3 mg/dL (0.1-1.0); CALCIUM, TOTAL 8.7 mg/dL (8.8-10.5); CARBON DIOXIDE 28 mmol/L (22-29); CHLORIDE 103 mmol/L (98-107); CHOL/HDL RATIO 5.7 (4.2-7.3); CHOLESTEROL 210 mg/dL (131-200); CREATININE 0.74 mg/dL (0.60-1.30); FREE T4 (FREE THYROXINE) 0.86 ng/dL (0.76-1.46); GLOMERULAR FILTR. RATE CALC > 60 mL/min (>60); GLUCOSE,RANDOM 96 mg/dL (70-110); HDL CHOLESTEROL 37 mg/dL (40-60); LDL CHOL (CALC.) 146 mg/dL (0-130); POTASSIUM 4.7 mmol/L (3.5-5.1); SODIUM SERUM 140 mmol/L (136-145); THYROID STIMULATING HORMONE 5.51 uIU/mL (0.36-3.74); TOTAL PROTEIN, SERUM 7.6 g/dL (6.4-8.2); TRIGLYCERIDES 134 mg/dL (15-150); UREA NITROGEN, BLOOD 16 mg/dL (7-18)
[2017-09-23] MEDS: IBUPROFEN 600 MG TABLET PO PRN (09:21)
[2017-09-23] MEDS ORDERED: PALIPERIDONE PALMITATE 234 MG/1.5 ML SYRINGE IM ONE (10:15)
== END 2017-09-23 14:30 | disposition home or self-care (01) | DRG 750 ==
LOC: B2S 13:12
PROVIDERS: ADMIT Psychiatry & Neurology Child & Adolescent Psychiatry; ATTEND Psychiatry & Neurology Child & Adolescent Psychiatry
DX: F25.0 Schizoaffective disorder, bipolar type (principal); R45.851 Suicidal ideations; F79 Unspecified intellectual disabilities; D64.9 Anemia, unspecified; H10.10 Acute atopic conjunctivitis, unspecified eye; J45.909 Unspecified asthma, uncomplicated; E87.6 Hypokalemia; K59.00 Constipation, unspecified; Z79.899 Other long term (current) drug therapy; Z90.49 Acquired absence of other specified parts of digestive tract; Z88.8 Allergy status to other drugs, medicaments and biological substances
CPT/HCPCS: 80307; 83036; 84439; 84443

== ENCOUNTER 2017-10-19 17:51 | Inpatient (IN) | payer MEDICAID, OTHER ==
[~2017-10-19] VITALS: Ht 167.6 cm; Wt 89.8 kg
[~2017-10-19 17:51] MED LIST changes: -DOCU250C91 PO; -OLAN10TA3 PO
[2017-10-19] MEDS ORDERED: LORazepam 1 MG TABLET PO ONE (19:15)
[2017-10-19] MEDS ORDERED: OLANZapine 5 MG TABLET PO ONE (19:15)
[2017-10-19 19:26] LABS: BASOPHILS % (AUTO) 0.6 % (0.0-2.0); EOSINOPHILS % (AUTO) 2.4 % (1.0-6.0); HEMATOCRIT 37.4 % (41-53); HEMOGLOBIN 13.1 g/dL (13.5-17.5); LYMPHOCYTES # (AUTO) 1.7 K/uL (1.0-4.8); LYMPHOCYTES % (AUTO) 22.6 % (22.0-44.0); MEAN CORPUSCULAR HEMOGLOBIN 31.7 pg (26.0-34.0); MEAN CORPUSCULAR VOLUME 91 fL (80-100); MONOCYTES # (AUTO) 0.5 K/uL (0.1-1.0); MONOCYTES % (AUTO) 7.1 % (2.0-9.0); NEUTROPHILS % (AUTO) 67.3 % (40.0-70.0); PLATELET COUNT (AUTO) 210 K/uL (150-450); RED BLOOD CELL COUNT(AUTO) 4.13 MIL/uL (4.50-5.90); RED CELL DISTRIBUTION WIDTH 12.8 % (11.5-14.5)
[2017-10-19] MEDS ORDERED: ZOLPIDEM TARTRATE 10 MG TABLET PO PRN (19:30)
[2017-10-19 19:38] LABS: ANION GAP 7 mmol/L (8-16); CALCIUM, TOTAL 8.5 mg/dL (8.8-10.5); CARBON DIOXIDE 29 mmol/L (22-29); CHLORIDE 102 mmol/L (98-107); CREATININE 0.85 mg/dL (0.60-1.30); GLOMERULAR FILTR. RATE CALC > 60 mL/min (>60); GLUCOSE,RANDOM 95 mg/dL (70-110); POTASSIUM 4.2 mmol/L (3.5-5.1); SODIUM SERUM 138 mmol/L (136-145); UREA NITROGEN, BLOOD 7 mg/dL (7-18)
[2017-10-19 19:40] LABS: AMPHET/METH SCREEN,URINE NEGATIVE (NEGATIVE); BARBITURATE SCREEN, URINE NEGATIVE (NEGATIVE); BENZODIAZEPINES SCREEN,URINE NEGATIVE (NEGATIVE); CANNABINOID SCREEN,URINE NEGATIVE (NEGATIVE); COCAINE SCREEN,URINE NEGATIVE (NEGATIVE); METHADONE SCREEN, URINE NEGATIVE (NEGATIVE); OPIATE SCREEN,URINE NEGATIVE (NEGATIVE)
[2017-10-19 19:41] LABS: PHENCYCLIDINE SCREEN,URINE NEGATIVE (NEGATIVE)
[2017-10-19 19:44] LABS: ALANINE AMINOTRANSFERASE 77 U/L (12-78); ALKALINE PHOSPHATASE 108 U/L (46-116); ASPARTATE AMINOTRANSFERASE 59 U/L (15-37); BILIRUBIN,TOTAL 0.3 mg/dL (0.1-1.0); TOTAL PROTEIN, SERUM 7.4 g/dL (6.4-8.2)
[2017-10-19 21:17] LABS: APPEARANCE,URINE CLEAR (CLEAR); BILIRUBIN,URINE NEGATIVE (NEGATIVE); GLUCOSE, URINE (UA) NEGATIVE (NEGATIVE); KETONES,URINE NEGATIVE (NEGATIVE); LEUKOCYTE ESTERASE ,URINE NEGATIVE (NEGATIVE); NITRATE,URINE NEGATIVE (NEGATIVE); OCCULT BLOOD,URINE NEGATIVE (NEGATIVE); PH,URINE 7.5 (5.0-8.0); PROTEIN,URINE NEGATIVE (NEGATIVE); UROBILINOGEN,URINE 0.2 mg/dL (<=1.0)
[2017-10-19 21:19] VITALS: BP 137/79
[2017-10-20] MEDS ORDERED: IBUPROFEN 400 MG TABLET PO PRN (06:45)
[2017-10-20] MEDS ORDERED: ACETAMINOPHEN 325 MG TABLET PO PRN ×2 (06:45→17:30)
[2017-10-20 08:54] VITALS: BP 103/51
[2017-10-20 17:00] VITALS: BP 128/79
[2017-10-20] MEDS ORDERED: ALBUTEROL SULFATE HFA 90 MCG/PUFF 8 GM INHALER IH PRN (17:30)
[2017-10-20] MEDS: TraZODone HCL 100 MG TABLET PO SCH (20:09)
[2017-10-20] MEDS: LORazepam 2 MG TABLET PO PRN (20:09)
[2017-10-21 08:55] VITALS: BP 122/62
[2017-10-21] MEDS: FLUoxetine HCL 20 MG CAPSULE PO SCH (08:57)
[2017-10-21] MEDS: IBUPROFEN 400 MG TABLET PO PRN (08:57)
[2017-10-21] MEDS: LORazepam 2 MG TABLET PO PRN (10:00)
[2017-10-21] MEDS: HALOPERIDOL 5 MG TABLET PO PRN (10:00)
[2017-10-21] MEDS ORDERED: PALIPERIDONE PALMITATE 234 MG/1.5 ML SYRINGE IM SCH (15:00)
[2017-10-21] MEDS: TraZODone HCL 100 MG TABLET PO SCH (20:19)
[2017-10-21 20:21] VITALS: BP 131/81
[2017-10-22 06:05] LABS: BASOPHILS % (AUTO) 0.4 % (0.0-2.0); EOSINOPHILS % (AUTO) 2.4 % (1.0-6.0); HEMATOCRIT 37.8 % (41-53); HEMOGLOBIN 13.4 g/dL (13.5-17.5); LYMPHOCYTES # (AUTO) 1.8 K/uL (1.0-4.8); LYMPHOCYTES % (AUTO) 27.4 % (22.0-44.0); MEAN CORPUSCULAR HEMOGLOBIN 32.1 pg (26.0-34.0); MEAN CORPUSCULAR HGB CONC 35.5 G/dL (31.0-37.0); MEAN CORPUSCULAR VOLUME 90 fL (80-100); MONOCYTES # (AUTO) 0.6 K/uL (0.1-1.0); MONOCYTES % (AUTO) 8.6 % (2.0-9.0); NEUTROPHILS # (AUTO) 4.1 K/uL (1.8-7.7); NEUTROPHILS % (AUTO) 61.2 % (40.0-70.0); PLATELET COUNT (AUTO) 208 K/uL (150-450); RED BLOOD CELL COUNT(AUTO) 4.19 MIL/uL (4.50-5.90); RED CELL DISTRIBUTION WIDTH 12.8 % (11.5-14.5)
[2017-10-22 06:38] LABS: ALANINE AMINOTRANSFERASE 66 U/L (12-78); ALBUMIN 3.7 g/dL (3.4-5.0); ALKALINE PHOSPHATASE 104 U/L (46-116); ANION GAP 11 mmol/L (8-16); ASPARTATE AMINOTRANSFERASE 42 U/L (15-37); BILIRUBIN,TOTAL 0.2 mg/dL (0.1-1.0); CALCIUM, TOTAL 8.5 mg/dL (8.8-10.5); CARBON DIOXIDE 26 mmol/L (22-29); CHLORIDE 101 mmol/L (98-107); CHOLESTEROL 209 mg/dL (131-200); CREATININE 0.78 mg/dL (0.60-1.30); GLOMERULAR FILTR. RATE CALC > 60 mL/min (>60); GLUCOSE,RANDOM 104 mg/dL (70-110); HDL CHOLESTEROL 35 mg/dL (40-60); LDL CHOL (CALC.) 140 mg/dL (0-130); POTASSIUM 4.8 mmol/L (3.5-5.1); SODIUM SERUM 138 mmol/L (136-145); THYROID STIMULATING HORMONE 5.19 uIU/mL (0.36-3.74); TRIGLYCERIDES 170 mg/dL (15-150); UREA NITROGEN, BLOOD 17 mg/dL (7-18)
[2017-10-22 07:25] LABS: HEMOGLOBIN A1C 5.6 % (4.5-6.2)
[2017-10-22 08:43] VITALS: BP 126/96
[2017-10-22] MEDS: FLUoxetine HCL 20 MG CAPSULE PO SCH (09:41)
[2017-10-22] MEDS: IBUPROFEN 400 MG TABLET PO PRN ×2 (09:42→20:08)
[2017-10-22] MEDS: LORazepam 2 MG TABLET PO PRN (16:09)
[2017-10-22] MEDS: HALOPERIDOL 5 MG TABLET PO PRN (16:10)
[2017-10-22] MEDS: TraZODone HCL 100 MG TABLET PO SCH (20:08)
[2017-10-22 20:09] VITALS: BP 125/75
[2017-10-23 03:23] VITALS: BP 123/78
[2017-10-23] MEDS: FLUoxetine HCL 20 MG CAPSULE PO SCH (08:43)
[2017-10-23] MEDS: IBUPROFEN 400 MG TABLET PO PRN (09:13)
[2017-10-23 09:14] VITALS: BP 145/90
[2017-10-23] MEDS: ONDANSETRON HCL 4 MG TABLET PO PRN ×2 (13:49→20:04)
[2017-10-23] MEDS: LOPERAMIDE HCL 2 MG CAPSULE PO PRN ×2 (13:49→18:41)
[2017-10-23 16:00] VITALS: BP 140/77
[2017-10-23] MEDS: TraZODone HCL 100 MG TABLET PO SCH (20:06)
[2017-10-24 00:05] VITALS: BP 128/80
[2017-10-24 08:52] VITALS: BP 140/80
[2017-10-24] MEDS: ONDANSETRON HCL 4 MG TABLET PO PRN (08:53)
[2017-10-24] MEDS: LOPERAMIDE HCL 2 MG CAPSULE PO PRN (08:53)
[2017-10-24] MEDS: FLUoxetine HCL 20 MG CAPSULE PO SCH (08:54)
[2017-10-24 09:02] VITALS: BP 152/92
[2017-10-24] MEDS ORDERED: PALI234D IM (09:53)
== END 2017-10-24 14:45 | disposition home or self-care (01) | DRG 750 ==
LOC: EMS 17:53 → 3EI 20:15 → EMS 20:49
PROVIDERS: ADMIT Psychiatry & Neurology Child & Adolescent Psychiatry; ATTEND Psychiatry & Neurology Child & Adolescent Psychiatry
DX: F25.0 Schizoaffective disorder, bipolar type (principal); F79 Unspecified intellectual disabilities; K74.60 Unspecified cirrhosis of liver; R45.851 Suicidal ideations; I10 Essential (primary) hypertension; D64.9 Anemia, unspecified; F19.10 Other psychoactive substance abuse, uncomplicated; G40.909 Epilepsy, unspecified, not intractable, without status epilepticus; G47.00 Insomnia, unspecified; J45.909 Unspecified asthma, uncomplicated; K59.00 Constipation, unspecified; Z79.899 Other long term (current) drug therapy; Z88.8 Allergy status to other drugs, medicaments and biological substances; Z71.51 Drug abuse counseling and surveillance of drug abuser
CPT/HCPCS: 83036; 84443; 87081; 99285; G0480; Q0162

== ENCOUNTER 2018-02-08 23:00 | Inpatient (IN) | payer MEDICAID, OTHER ==
[~2018-02-08] VITALS: Ht 165.1 cm; Wt 89.6 kg
[~2018-02-08 23:00] MED LIST changes: +PALI234D IM; -TRAZ-147 PO; +TRAZ-220 PO
[2018-02-09] MEDS ORDERED: LORA-192 PO (01:19)
[2018-02-09] MEDS ORDERED: TRAZ-220 PO (01:19)
[2018-02-09] MEDS ORDERED: FLUO40CA PO (01:19)
[2018-02-09] MEDS ORDERED: MULT-1204 PO (01:19)
[2018-02-09] MEDS ORDERED: LEVO50 PO (01:19)
[2018-02-09] MEDS ORDERED: DIVA500T52 PO (01:19)
[2018-02-09] MEDS ORDERED: OLAN10TA3 PO (01:19)
[2018-02-09 01:20] LABS: BASOPHILS % (AUTO) 0.8 % (0.0-2.0); EOSINOPHILS % (AUTO) 0.9 % (1.0-6.0); HEMOGLOBIN 12.3 g/dL (13.5-17.5); LYMPHOCYTES # (AUTO) 1.9 K/uL (1.0-4.8); LYMPHOCYTES % (AUTO) 23.9 % (22.0-44.0); MEAN CORPUSCULAR HEMOGLOBIN 32.4 pg (26.0-34.0); MEAN CORPUSCULAR HGB CONC 36.3 G/dL (31.0-37.0); MEAN CORPUSCULAR VOLUME 89 fL (80-100); MONOCYTES # (AUTO) 0.6 K/uL (0.1-1.0); MONOCYTES % (AUTO) 7.7 % (2.0-9.0); NEUTROPHILS # (AUTO) 5.4 K/uL (1.8-7.7); NEUTROPHILS % (AUTO) 66.7 % (40.0-70.0); PLATELET COUNT (AUTO) 203 K/uL (150-450); RED BLOOD CELL COUNT(AUTO) 3.81 MIL/uL (4.50-5.90); RED CELL DISTRIBUTION WIDTH 12.5 % (11.5-14.5)
[2018-02-09 01:33] LABS: ANION GAP 7 mmol/L (8-16); CARBON DIOXIDE 29 mmol/L (22-29); CHLORIDE 100 mmol/L (98-107); CREATININE 0.99 mg/dL (0.60-1.30); GLUCOSE,RANDOM 95 mg/dL (70-110); POTASSIUM 3.1 mmol/L (3.5-5.1); SODIUM SERUM 136 mmol/L (136-145); UREA NITROGEN, BLOOD 14 mg/dL (7-18)
[2018-02-09 01:34] LABS: CALCIUM, TOTAL 8.4 mg/dL (8.8-10.5); GLOMERULAR FILTR. RATE CALC > 60 mL/min (>60)
[2018-02-09 01:37] LABS: AMPHET/METH SCREEN,URINE NEGATIVE (NEGATIVE); BARBITURATE SCREEN, URINE NEGATIVE (NEGATIVE); BENZODIAZEPINES SCREEN,URINE NEGATIVE (NEGATIVE); CANNABINOID SCREEN,URINE NEGATIVE (NEGATIVE); COCAINE SCREEN,URINE NEGATIVE (NEGATIVE); METHADONE SCREEN, URINE NEGATIVE (NEGATIVE); OPIATE SCREEN,URINE NEGATIVE (NEGATIVE)
[2018-02-09 01:39] LABS: ALANINE AMINOTRANSFERASE 46 U/L (12-78); ALKALINE PHOSPHATASE 98 U/L (46-116); ASPARTATE AMINOTRANSFERASE 36 U/L (15-37); BILIRUBIN,TOTAL 0.3 mg/dL (0.1-1.0); TOTAL PROTEIN, SERUM 7.2 g/dL (6.4-8.2)
[2018-02-09 01:46] LABS: PHENCYCLIDINE SCREEN,URINE NEGATIVE (NEGATIVE)
[2018-02-09] MEDS ORDERED: OLANZapine 5 MG TABLET PO ONE (02:45)
[2018-02-09] MEDS ORDERED: LORazepam 2 MG TABLET PO ONE (02:45)
[2018-02-09] MEDS ORDERED: TraZODone HCL 50 MG TABLET PO ONE (02:45)
[2018-02-09] MEDS ORDERED: ZOLPIDEM TARTRATE 10 MG TABLET PO PRN (03:00)
[2018-02-09] MEDS ORDERED: HALOPERIDOL 5 MG TABLET PO PRN (03:00)
[2018-02-09 05:37] VITALS: BP 117/69
[2018-02-09] MEDS ORDERED: PNEUMOCOCCAL VACCINE POLYVALENT 0.5 ML VIAL [PPSV23] IM ONE (07:15)
[2018-02-09] MEDS ORDERED: POTASSIUM CHLORIDE 20 MEQ ER TABLET PO ONE (11:15)
[2018-02-09] MEDS: TraZODone HCL 100 MG TABLET PO SCH (20:39)
[2018-02-10 07:22] LABS: ANION GAP 10 mmol/L (8-16); CALCIUM, TOTAL 8.3 mg/dL (8.8-10.5); CARBON DIOXIDE 25 mmol/L (22-29); CHLORIDE 104 mmol/L (98-107); CREATININE 0.83 mg/dL (0.60-1.30); GLOMERULAR FILTR. RATE CALC > 60 mL/min (>60); GLUCOSE,RANDOM 106 mg/dL (70-110); POTASSIUM 4.7 mmol/L (3.5-5.1); SODIUM SERUM 139 mmol/L (136-145); UREA NITROGEN, BLOOD 19 mg/dL (7-18)
[2018-02-10 08:50] VITALS: BP 106/68
[2018-02-10] MEDS: FLUoxetine HCL 20 MG CAPSULE PO SCH (09:20)
[2018-02-10] MEDS ORDERED: BENZOCAINE/MENTHOL LOZENGE MM PRN (12:45)
[2018-02-10] MEDS ORDERED: ACETAMINOPHEN 325 MG TABLET PO PRN (12:45)
[2018-02-10] MEDS ORDERED: BACITRACIN 28.4 GM OINTMENT TP PRN (12:45)
[2018-02-10] MEDS ORDERED: MAGNESIUM HYDROXIDE SUSPENSION 30 ML UDCUP PO PRN (12:45)
[2018-02-10] MEDS ORDERED: CloNIDine HCL 0.1 MG TABLET PO PRN (12:45)
[2018-02-10] MEDS ORDERED: PETROLATUM,WHITE 71 GM JELLY TP PRN (12:45)
[2018-02-10] MEDS ORDERED: LOPERAMIDE HCL 2 MG CAPSULE PO PRN (12:45)
[2018-02-10] MEDS ORDERED: ALBUTEROL SULFATE HFA 90 MCG/PUFF 8 GM INHALER IH PRN (12:45)
[2018-02-10] MEDS ORDERED: ONDANSETRON HCL 4 MG TABLET PO PRN (12:45)
[2018-02-10] MEDS ORDERED: MAG HYDROX/AL HYDROX/SIMETH ES 30 ML SUSPENSION UDCUP PO PRN (12:45)
[2018-02-10 16:30] VITALS: BP 137/71
[2018-02-10 17:01] VITALS: BP 137/71
[2018-02-10] MEDS: IBUPROFEN 600 MG TABLET PO PRN (17:01)
[2018-02-10] MEDS: TraZODone HCL 100 MG TABLET PO SCH (20:13)
[2018-02-11] MEDS: LEVOTHYROXINE SODIUM 50 MCG TABLET PO SCH (06:36)
[2018-02-11 08:30] VITALS: BP 139/73
[2018-02-11 09:00] VITALS: BP 139/73
[2018-02-11] MEDS: FLUoxetine HCL 20 MG CAPSULE PO SCH (09:04)
[2018-02-11] MEDS: DOCUSATE SODIUM 100 MG CAPSULE PO SCH (09:04)
[2018-02-11] MEDS: MULTIVITAMINS WITH IRON TABLET PO SCH (09:04)
[2018-02-11] MEDS: OMEPRAZOLE 20 MG CAPSULE PO SCH (09:04)
[2018-02-11] MEDS: IBUPROFEN 600 MG TABLET PO PRN (09:05)
[2018-02-11] MEDS: LORazepam 2 MG TABLET PO PRN ×2 (16:21→20:41)
[2018-02-11 19:47] VITALS: BP 130/76
[2018-02-11] MEDS: TraZODone HCL 100 MG TABLET PO SCH (20:40)
[2018-02-12] MEDS: LEVOTHYROXINE SODIUM 50 MCG TABLET PO SCH (06:43)
[2018-02-12] MEDS: DOCUSATE SODIUM 100 MG CAPSULE PO SCH (08:51)
[2018-02-12] MEDS: OMEPRAZOLE 20 MG CAPSULE PO SCH (08:51)
[2018-02-12] MEDS: MULTIVITAMINS WITH IRON TABLET PO SCH (08:52)
[2018-02-12] MEDS: FLUoxetine HCL 20 MG CAPSULE PO SCH (08:52)
[2018-02-12 09:00] VITALS: BP 134/61
[2018-02-12] MEDS: IBUPROFEN 600 MG TABLET PO PRN ×2 (09:02→20:39)
[2018-02-12] MEDS: LORazepam 2 MG TABLET PO PRN (16:20)
[2018-02-12 16:43] VITALS: BP 141/70
[2018-02-12] MEDS: TraZODone HCL 100 MG TABLET PO SCH (20:05)
[2018-02-12 20:36] VITALS: BP 135/71
[2018-02-13 03:30] VITALS: BP 115/74
[2018-02-13] MEDS: LORazepam 2 MG TABLET PO PRN (03:34)
[2018-02-13] MEDS: LEVOTHYROXINE SODIUM 50 MCG TABLET PO SCH (06:46)
[2018-02-13 08:02] VITALS: BP 140/73
[2018-02-13] MEDS: IBUPROFEN 600 MG TABLET PO PRN (08:02)
[2018-02-13] MEDS: OMEPRAZOLE 20 MG CAPSULE PO SCH (08:02)
[2018-02-13] MEDS: FLUoxetine HCL 20 MG CAPSULE PO SCH (08:02)
[2018-02-13] MEDS: MULTIVITAMINS WITH IRON TABLET PO SCH (08:02)
[2018-02-13] MEDS: DOCUSATE SODIUM 100 MG CAPSULE PO SCH (08:03)
[2018-02-13 10:02] VITALS: BP 140/73
[2018-02-13] MEDS ORDERED: PALI234D IM (12:03)
[2018-02-13] MEDS ORDERED: DSS100 PO (12:06)
[2018-02-13] MEDS ORDERED: OMEP20 PO (12:07)
[2018-03-07] MEDS ORDERED: PALIPERIDONE PALMITATE 234 MG/1.5 ML SYRINGE IM SCH (09:00)
== END 2018-02-13 12:45 | disposition home or self-care (01) | DRG 750 ==
LOC: EMS 23:01 → 3EI 02-09 03:43 → EMS 02-09 04:40
PROVIDERS: ADMIT Psychiatry & Neurology Psychiatry; ATTEND Psychiatry & Neurology Psychiatry
DX: F25.9 Schizoaffective disorder, unspecified (principal); R45.851 Suicidal ideations; E83.51 Hypocalcemia; D64.9 Anemia, unspecified; E87.6 Hypokalemia; F15.90 Other stimulant use, unspecified, uncomplicated; J45.909 Unspecified asthma, uncomplicated; K76.9 Liver disease, unspecified; F31.9 Bipolar disorder, unspecified; M54.9 Dorsalgia, unspecified; Z88.8 Allergy status to other drugs, medicaments and biological substances; Z56.0 Unemployment, unspecified; Z28.21 Immunization not carried out because of patient refusal
CPT/HCPCS: 80074; 82306; 99285; G0480

== ENCOUNTER 2018-06-03 15:00 | Emergency (ER) | payer MEDICAID, OTHER ==
[~2018-06-03] VITALS: Ht 170.2 cm; Wt 84.1 kg
[~2018-06-03 15:00] MED LIST changes: +FERR-89 PO; -FLUO-191 PO; +FLUO40CA PO; +LEVO50 PO; +OMEP20 PO; -PALI234D IM
[2018-06-03] MEDS ORDERED: OLAN2.5T3 PO (15:07)
[2018-06-03] MEDS ORDERED: LORA0.5T2 PO (15:07)
[2018-06-03] MEDS ORDERED: QUET25TA PO (15:07)
[2018-06-03 16:14] VITALS: BP 135/72
== END 2018-06-03 16:21 | disposition home or self-care (01) ==
LOC: EMS 15:01
DX: F25.9 Schizoaffective disorder, unspecified (principal); B35.3 Tinea pedis; J45.909 Unspecified asthma, uncomplicated; F31.9 Bipolar disorder, unspecified; K76.9 Liver disease, unspecified; F15.90 Other stimulant use, unspecified, uncomplicated; Z88.8 Allergy status to other drugs, medicaments and biological substances; Z79.899 Other long term (current) drug therapy; Z98.890 Other specified postprocedural states

== ENCOUNTER 2018-06-04 09:43 | Inpatient (IN) | payer MEDICAID, OTHER ==
[~2018-06-04] VITALS: Ht 170.2 cm; Wt 83.9 kg
[~2018-06-04 09:43] MED LIST changes: -FERR-89 PO; -FLUO40CA PO; +LORA0.5T2 PO; +OLAN2.5T3 PO; -OMEP20 PO; +QUET25TA PO
[2018-06-04 11:45] LABS: BASOPHILS % (AUTO) 0.5 % (0.0-2.0); EOSINOPHILS % (AUTO) 1.5 % (1.0-6.0); HEMATOCRIT 37.2 % (41-53); HEMOGLOBIN 13.1 g/dL (13.5-17.5); LYMPHOCYTES # (AUTO) 1.2 K/uL (1.0-4.8); LYMPHOCYTES % (AUTO) 25.2 % (22.0-44.0); MEAN CORPUSCULAR HEMOGLOBIN 32.1 pg (26.0-34.0); MEAN CORPUSCULAR HGB CONC 35.2 G/dL (31.0-37.0); MEAN CORPUSCULAR VOLUME 91 fL (80-100); MONOCYTES # (AUTO) 0.4 K/uL (0.1-1.0); MONOCYTES % (AUTO) 7.1 % (2.0-9.0); NEUTROPHILS # (AUTO) 3.3 K/uL (1.8-7.7); NEUTROPHILS % (AUTO) 65.7 % (40.0-70.0); PLATELET COUNT (AUTO) 217 K/uL (150-450); RED BLOOD CELL COUNT(AUTO) 4.08 MIL/uL (4.50-5.90); RED CELL DISTRIBUTION WIDTH 12.2 % (11.5-14.5)
[2018-06-04 11:57] LABS: AMPHET/METH SCREEN,URINE NEGATIVE (NEGATIVE); BARBITURATE SCREEN, URINE NEGATIVE (NEGATIVE); BENZODIAZEPINES SCREEN,URINE NEGATIVE (NEGATIVE); CANNABINOID SCREEN,URINE NEGATIVE (NEGATIVE); COCAINE SCREEN,URINE NEGATIVE (NEGATIVE); METHADONE SCREEN, URINE NEGATIVE (NEGATIVE); OPIATE SCREEN,URINE NEGATIVE (NEGATIVE)
[2018-06-04 11:58] LABS: ANION GAP 7 mmol/L (8-16); CARBON DIOXIDE 30 mmol/L (22-29); CHLORIDE 103 mmol/L (98-107); CREATININE 0.66 mg/dL (0.60-1.30); GLOMERULAR FILTR. RATE CALC > 60 mL/min (>60); GLUCOSE,RANDOM 94 mg/dL (70-110); POTASSIUM 4.3 mmol/L (3.5-5.1); SODIUM SERUM 140 mmol/L (136-145); UREA NITROGEN, BLOOD 23 mg/dL (7-18)
[2018-06-04 11:58] LABS: PHENCYCLIDINE SCREEN,URINE NEGATIVE (NEGATIVE)
[2018-06-04 12:04] LABS: ALANINE AMINOTRANSFERASE 53 U/L (12-78); ALBUMIN 3.9 g/dL (3.4-5.0); ALKALINE PHOSPHATASE 97 U/L (46-116); ASPARTATE AMINOTRANSFERASE 47 U/L (15-37); BILIRUBIN,TOTAL 0.3 mg/dL (0.1-1.0); TOTAL PROTEIN, SERUM 7.7 g/dL (6.4-8.2)
[2018-06-04] MEDS ORDERED: HALOPERIDOL 5 MG TABLET PO PRN (12:15)
[2018-06-04] MEDS ORDERED: ZOLPIDEM TARTRATE 10 MG TABLET PO PRN (12:15)
[2018-06-04 13:55] VITALS: BP 109/69
[2018-06-04] MEDS ORDERED: PETROLATUM,WHITE 71 GM JELLY TP PRN (14:45)
[2018-06-04] MEDS ORDERED: ONDANSETRON HCL 4 MG TABLET PO PRN (14:45)
[2018-06-04] MEDS ORDERED: ACETAMINOPHEN 325 MG TABLET PO PRN (14:45)
[2018-06-04] MEDS ORDERED: MAGNESIUM HYDROXIDE SUSPENSION 30 ML UDCUP PO PRN (14:45)
[2018-06-04] MEDS ORDERED: NICOTINE 14 MG/24 HOUR PATCH TD PRN (14:45)
[2018-06-04] MEDS ORDERED: IBUPROFEN 400 MG TABLET PO PRN (14:45)
[2018-06-04] MEDS ORDERED: DOCUSATE SODIUM 100 MG CAPSULE PO PRN (14:45)
[2018-06-04] MEDS ORDERED: GuaiFENesin/D-METHORPHAN [SUGAR-FREE] 200-20MG/10 ML SYRUP UDCUP PO PRN (14:45)
[2018-06-04] MEDS ORDERED: LOPERAMIDE HCL 2 MG CAPSULE PO PRN (14:45)
[2018-06-04] MEDS ORDERED: ALBUTEROL SULFATE HFA 90 MCG/PUFF 8 GM INHALER IH PRN (14:45)
[2018-06-04] MEDS ORDERED: CloNIDine HCL 0.1 MG TABLET PO PRN (14:45)
[2018-06-04] MEDS ORDERED: MAG HYDROX/AL HYDROX/SIMETH ES 30 ML SUSPENSION UDCUP PO PRN (14:45)
[2018-06-04 16:07] VITALS: BP 126/70
[2018-06-04] MEDS: FERROUS SULFATE 325 MG EC TABLET PO SCH (16:25)
[2018-06-05 02:16] VITALS: BP 118/74
[2018-06-05] MEDS: FERROUS SULFATE 325 MG EC TABLET PO SCH ×3 (06:27→17:00)
[2018-06-05 08:24] VITALS: BP 132/74
[2018-06-05 08:41] LABS: BASOPHILS % (AUTO) 0.6 % (0.0-2.0); EOSINOPHILS % (AUTO) 2.3 % (1.0-6.0); HEMATOCRIT 36.7 % (41-53); LYMPHOCYTES # (AUTO) 1.7 K/uL (1.0-4.8); LYMPHOCYTES % (AUTO) 29.7 % (22.0-44.0); MEAN CORPUSCULAR HEMOGLOBIN 32.2 pg (26.0-34.0); MEAN CORPUSCULAR HGB CONC 35.4 G/dL (31.0-37.0); MEAN CORPUSCULAR VOLUME 91 fL (80-100); MONOCYTES # (AUTO) 0.4 K/uL (0.1-1.0); MONOCYTES % (AUTO) 7.3 % (2.0-9.0); NEUTROPHILS # (AUTO) 3.4 K/uL (1.8-7.7); NEUTROPHILS % (AUTO) 60.1 % (40.0-70.0); PLATELET COUNT (AUTO) 217 K/uL (150-450); RED BLOOD CELL COUNT(AUTO) 4.03 MIL/uL (4.50-5.90); RED CELL DISTRIBUTION WIDTH 12.4 % (11.5-14.5)
[2018-06-05 08:59] LABS: HEMOGLOBIN A1C 5.6 % (4.5-6.2)
[2018-06-05 09:15] LABS: ALANINE AMINOTRANSFERASE 54 U/L (12-78); ALBUMIN 3.9 g/dL (3.4-5.0); ALKALINE PHOSPHATASE 88 U/L (46-116); ANION GAP 4 mmol/L (8-16); ASPARTATE AMINOTRANSFERASE 42 U/L (15-37); BILIRUBIN,TOTAL 0.3 mg/dL (0.1-1.0); CALCIUM, TOTAL 7.9 mg/dL (8.8-10.5); CARBON DIOXIDE 33 mmol/L (22-29); CHLORIDE 103 mmol/L (98-107); CHOLESTEROL 185 mg/dL (131-200); CREATININE 0.84 mg/dL (0.60-1.30); GLOMERULAR FILTR. RATE CALC > 60 mL/min (>60); GLUCOSE,RANDOM 93 mg/dL (70-110); HDL CHOLESTEROL 37 mg/dL (40-60); LDL CHOL (CALC.) 130 mg/dL (0-130); POTASSIUM 4.1 mmol/L (3.5-5.1); SODIUM SERUM 140 mmol/L (136-145); THYROID STIMULATING HORMONE 3.74 uIU/mL (0.36-3.74); TOTAL PROTEIN, SERUM 7.5 g/dL (6.4-8.2); TRIGLYCERIDES 91 mg/dL (15-150); UREA NITROGEN, BLOOD 23 mg/dL (7-18)
[2018-06-05] MEDS: LORazepam 2 MG TABLET PO PRN ×2 (09:32→16:26)
[2018-06-05 13:20] VITALS: BP 138/68
[2018-06-05 13:48] LABS: GLUCOMETER DEV NAME(LOC) BV2S 2; GLUCOSE,POINT OF CARE 82 MG/DL (70-110)
[2018-06-05] MEDS: DIVALPROEX SODIUM 500 MG ER TABLET PO SCH ×2 (16:26→17:00)
[2018-06-05] MEDS: TraZODone HCL 100 MG TABLET PO SCH (21:00)
[2018-06-06 03:14] VITALS: BP 119/67
[2018-06-06] MEDS: LEVOTHYROXINE SODIUM 50 MCG TABLET PO SCH (06:30)
[2018-06-06] MEDS: FERROUS SULFATE 325 MG EC TABLET PO SCH ×2 (06:37→16:07)
[2018-06-06] MEDS: DIVALPROEX SODIUM 500 MG ER TABLET PO SCH ×2 (08:14→16:07)
[2018-06-06] MEDS: LORazepam 2 MG TABLET PO PRN (13:31)
[2018-06-06 16:04] VITALS: BP 129/71
[2018-06-06] MEDS: LevETIRAcetam 500 MG TABLET PO SCH (16:07)
[2018-06-06] MEDS: TraZODone HCL 100 MG TABLET PO SCH ×2 (20:59→22:42)
[2018-06-07 06:09] VITALS: BP 100/66
[2018-06-07] MEDS: FERROUS SULFATE 325 MG EC TABLET PO SCH (06:56)
[2018-06-07] MEDS: LEVOTHYROXINE SODIUM 50 MCG TABLET PO SCH (06:57)
[2018-06-07] MEDS: LevETIRAcetam 500 MG TABLET PO SCH (08:19)
[2018-06-07] MEDS: DIVALPROEX SODIUM 500 MG ER TABLET PO SCH (08:19)
[2018-06-07 08:27] VITALS: BP 124/69
[2018-06-07] MEDS ORDERED: LEVE500T53 PO (11:45)
[2018-06-07] MEDS ORDERED: DIVA500T52 PO (11:45)
[2018-06-07] MEDS ORDERED: FERR-89 PO (11:45)
== END 2018-06-07 13:15 | disposition home or self-care (01) | DRG 750 ==
LOC: EMS 09:44 → B2S 12:25
PROVIDERS: ADMIT Psychiatry & Neurology Psychiatry; ATTEND Psychiatry & Neurology Psychiatry
DX: F25.0 Schizoaffective disorder, bipolar type (principal); R56.9 Unspecified convulsions; R45.851 Suicidal ideations; F19.90 Other psychoactive substance use, unspecified, uncomplicated; J45.909 Unspecified asthma, uncomplicated; K21.9 Gastro-esophageal reflux disease without esophagitis; K59.00 Constipation, unspecified; Z79.899 Other long term (current) drug therapy; Z91.5 Personal history of self-harm; E03.9 Hypothyroidism, unspecified; D64.9 Anemia, unspecified; Z28.21 Immunization not carried out because of patient refusal; Z79.890 Hormone replacement therapy
CPT/HCPCS: 83036; 84443; G0480; Q0162

== ENCOUNTER 2019-01-13 00:44 | Inpatient (IN) | payer MEDICAID, OTHER ==
[~2019-01-13] VITALS: Ht 172.7 cm; Wt 84.8 kg
[~2019-01-13 00:44] MED LIST changes: +DIVA500T52 PO; +FERR-89 PO; +LEVE500T53 PO; -LORA0.5T2 PO; -OLAN2.5T3 PO; -QUET25TA PO
[2019-01-13] MEDS ORDERED: QUET200T PO (01:45)
[2019-01-13 01:58] LABS: AMPHET/METH SCREEN,URINE NEGATIVE (NEGATIVE); BARBITURATE SCREEN, URINE NEGATIVE (NEGATIVE); BENZODIAZEPINES SCREEN,URINE NEGATIVE (NEGATIVE); CANNABINOID SCREEN,URINE NEGATIVE (NEGATIVE); COCAINE SCREEN,URINE NEGATIVE (NEGATIVE); METHADONE SCREEN, URINE NEGATIVE (NEGATIVE); OPIATE SCREEN,URINE NEGATIVE (NEGATIVE)
[2019-01-13 02:03] LABS: PHENCYCLIDINE SCREEN,URINE NEGATIVE (NEGATIVE)
[2019-01-13 02:34] LABS: EOSINOPHILS % (AUTO) 2.2 % (1.0-6.0); HEMATOCRIT 37.3 % (41-53); HEMOGLOBIN 12.7 g/dL (13.5-17.5); LYMPHOCYTES # (AUTO) 2.2 K/uL (1.0-4.8); LYMPHOCYTES % (AUTO) 39.2 % (22.0-44.0); MEAN CORPUSCULAR HEMOGLOBIN 31.8 pg (26.0-34.0); MEAN CORPUSCULAR VOLUME 94 fL (80-100); MONOCYTES # (AUTO) 0.5 K/uL (0.1-1.0); MONOCYTES % (AUTO) 9.1 % (2.0-9.0); NEUTROPHILS # (AUTO) 2.7 K/uL (1.8-7.7); NEUTROPHILS % (AUTO) 48.5 % (40.0-70.0); PLATELET COUNT (AUTO) 204 K/uL (150-450); RED BLOOD CELL COUNT(AUTO) 3.99 MIL/uL (4.50-5.90); RED CELL DISTRIBUTION WIDTH 12.6 % (11.5-14.5)
[2019-01-13 02:46] LABS: ANION GAP 7 mmol/L (8-16); CALCIUM, TOTAL 8.9 mg/dL (8.8-10.5); CARBON DIOXIDE 29 mmol/L (22-29); CHLORIDE 102 mmol/L (98-107); CREATININE 0.85 mg/dL (0.60-1.30); GLOMERULAR FILTR. RATE CALC > 60 mL/min (>60); GLUCOSE,RANDOM 99 mg/dL (70-110); POTASSIUM 4.1 mmol/L (3.5-5.1); SODIUM SERUM 138 mmol/L (136-145); UREA NITROGEN, BLOOD 28 mg/dL (7-18)
[2019-01-13 02:52] LABS: ALANINE AMINOTRANSFERASE 42 U/L (12-78); ALBUMIN 3.8 g/dL (3.4-5.0); ALKALINE PHOSPHATASE 89 U/L (46-116); ASPARTATE AMINOTRANSFERASE 35 U/L (15-37); BILIRUBIN,TOTAL 0.1 mg/dL (0.1-1.0); TOTAL PROTEIN, SERUM 7.6 g/dL (6.4-8.2); VALPROIC ACID 43 mcg/mL (50-100)
[2019-01-13] MEDS ORDERED: HALOPERIDOL 5 MG TABLET PO PRN (06:00)
[2019-01-13] MEDS ORDERED: LORazepam 2 MG TABLET PO PRN (06:00)
[2019-01-13] MEDS ORDERED: ZOLPIDEM TARTRATE 10 MG TABLET PO PRN (06:00)
[2019-01-13 12:53] VITALS: BP 121/75
[2019-01-13] MEDS ORDERED: IBUPROFEN 400 MG TABLET PO PRN (13:15)
[2019-01-13] MEDS ORDERED: DOCUSATE SODIUM 100 MG CAPSULE PO PRN (13:15)
[2019-01-13] MEDS ORDERED: CloNIDine HCL 0.1 MG TABLET PO PRN (13:15)
[2019-01-13] MEDS ORDERED: LOPERAMIDE HCL 2 MG CAPSULE PO PRN (13:15)
[2019-01-13] MEDS ORDERED: MAG HYDROX/AL HYDROX/SIMETH ES 30 ML SUSPENSION UDCUP PO PRN (13:15)
[2019-01-13] MEDS ORDERED: ACETAMINOPHEN 325 MG TABLET PO PRN (13:15)
[2019-01-13] MEDS ORDERED: ONDANSETRON HCL 4 MG TABLET PO PRN (13:15)
[2019-01-13] MEDS ORDERED: MAGNESIUM HYDROXIDE SUSPENSION 30 ML UDCUP PO PRN (13:15)
[2019-01-13] MEDS ORDERED: NICOTINE 14 MG/24 HOUR PATCH TD PRN (13:15)
[2019-01-13] MEDS ORDERED: GuaiFENesin/D-METHORPHAN [SUGAR-FREE] 200-20MG/10 ML SYRUP UDCUP PO PRN (13:15)
[2019-01-13] MEDS ORDERED: PETROLATUM,WHITE 28 GM JELLY TP PRN (13:15)
[2019-01-13] MEDS ORDERED: PNEUMOCOCCAL VACCINE POLYVALENT 0.5 ML VIAL [PPSV23] IM ONE (13:45)
[2019-01-13 16:25] VITALS: BP 121/72
[2019-01-13] MEDS: ALBUTEROL SULFATE HFA 90 MCG/PUFF 8 GM INHALER IH PRN (18:20)
[2019-01-13] MEDS: QUEtiapine FUMARATE 200 MG TABLET PO SCH (20:10)
[2019-01-13] MEDS: DIVALPROEX SODIUM 500 MG ER TABLET PO SCH (20:11)
[2019-01-14 05:59] VITALS: BP 118/70
[2019-01-14 06:42] LABS: BASOPHILS % (AUTO) 0.7 % (0.0-2.0); HEMATOCRIT 38.3 % (41-53); HEMOGLOBIN 12.9 g/dL (13.5-17.5); LYMPHOCYTES # (AUTO) 1.9 K/uL (1.0-4.8); LYMPHOCYTES % (AUTO) 39.2 % (22.0-44.0); MEAN CORPUSCULAR HEMOGLOBIN 31.9 pg (26.0-34.0); MEAN CORPUSCULAR HGB CONC 33.8 G/dL (31.0-37.0); MEAN CORPUSCULAR VOLUME 95 fL (80-100); MONOCYTES # (AUTO) 0.4 K/uL (0.1-1.0); MONOCYTES % (AUTO) 8.7 % (2.0-9.0); NEUTROPHILS # (AUTO) 2.3 K/uL (1.8-7.7); NEUTROPHILS % (AUTO) 48.4 % (40.0-70.0); PLATELET COUNT (AUTO) 206 K/uL (150-450); RED BLOOD CELL COUNT(AUTO) 4.05 MIL/uL (4.50-5.90); RED CELL DISTRIBUTION WIDTH 12.8 % (11.5-14.5)
[2019-01-14 07:42] LABS: ALANINE AMINOTRANSFERASE 35 U/L (12-78); ALBUMIN 3.6 g/dL (3.4-5.0); ALKALINE PHOSPHATASE 80 U/L (46-116); ANION GAP 8 mmol/L (8-16); ASPARTATE AMINOTRANSFERASE 24 U/L (15-37); BILIRUBIN,TOTAL 0.2 mg/dL (0.1-1.0); CALCIUM, TOTAL 8.6 mg/dL (8.8-10.5); CARBON DIOXIDE 27 mmol/L (22-29); CHLORIDE 104 mmol/L (98-107); CHOL/HDL RATIO 4.9 (4.2-7.3); CHOLESTEROL 161 mg/dL (131-200); CREATININE 0.83 mg/dL (0.60-1.30); GLOMERULAR FILTR. RATE CALC > 60 mL/min (>60); GLUCOSE,RANDOM 89 mg/dL (70-110); HDL CHOLESTEROL 33 mg/dL (40-60); LDL CHOL (CALC.) 108 mg/dL (0-130); POTASSIUM 4.6 mmol/L (3.5-5.1); SODIUM SERUM 139 mmol/L (136-145); THYROID STIMULATING HORMONE 2.57 uIU/mL (0.36-3.74); TOTAL PROTEIN, SERUM 6.8 g/dL (6.4-8.2); TRIGLYCERIDES 100 mg/dL (15-150); UREA NITROGEN, BLOOD 23 mg/dL (7-18)
[2019-01-14 10:56] VITALS: BP 114/68
[2019-01-14] MEDS: FERROUS SULFATE 325 MG EC TABLET PO SCH ×3 (12:26→20:04)
[2019-01-14 16:03] VITALS: BP 127/67
[2019-01-14] MEDS: QUEtiapine FUMARATE 200 MG TABLET PO SCH (20:04)
[2019-01-14] MEDS: DIVALPROEX SODIUM 500 MG ER TABLET PO SCH (20:04)
[2019-01-15 01:55] VITALS: BP 110/66
[2019-01-15] MEDS: FERROUS SULFATE 325 MG EC TABLET PO SCH ×2 (06:26→12:08)
[2019-01-15 08:31] VITALS: BP 108/62
[2019-01-15] MEDS: ALBUTEROL SULFATE HFA 90 MCG/PUFF 8 GM INHALER IH PRN (08:37)
[2019-01-15] MEDS ORDERED: FERR-89 PO (10:36)
[2019-01-15] MEDS ORDERED: DIVA500T52 PO (10:39)
[2019-01-15] MEDS ORDERED: QUET200T29 PO (10:39)
== END 2019-01-15 13:40 | disposition home or self-care (01) | DRG 750 ==
LOC: EMS 00:46 → B2S 11:39
DX: F25.0 Schizoaffective disorder, bipolar type (principal); R45.851 Suicidal ideations; K74.60 Unspecified cirrhosis of liver; F79 Unspecified intellectual disabilities; G40.909 Epilepsy, unspecified, not intractable, without status epilepticus; J45.909 Unspecified asthma, uncomplicated; I10 Essential (primary) hypertension; D64.9 Anemia, unspecified; Z88.8 Allergy status to other drugs, medicaments and biological substances; Z79.899 Other long term (current) drug therapy
CPT/HCPCS: 83036; 84443; G0480; J3535

== ENCOUNTER 2019-07-17 19:23 | Inpatient (IN) | payer MEDICAID, OTHER ==
[~2019-07-17] VITALS: Ht 165.1 cm; Wt 92.3 kg
[~2019-07-17 19:23] MED LIST changes: -LEVE500T53 PO; -LEVO50 PO; +QUET200T29 PO; -TRAZ-220 PO
[2019-07-17] MEDS ORDERED: TRAZ-257 PO (20:10)
[2019-07-17] MEDS ORDERED: QUEtiapine FUMARATE 100 MG TABLET PO ONE (20:15)
[2019-07-17 20:22] LABS: BASOPHILS % (AUTO) 0.4 % (0.0-2.0); EOSINOPHILS % (AUTO) 1.1 % (1.0-6.0); HEMATOCRIT 35.6 % (41-53); HEMOGLOBIN 12.6 g/dL (13.5-17.5); LYMPHOCYTES # (AUTO) 1.8 K/uL (1.0-4.8); LYMPHOCYTES % (AUTO) 25.3 % (22.0-44.0); MEAN CORPUSCULAR HEMOGLOBIN 32.3 pg (26.0-34.0); MEAN CORPUSCULAR HGB CONC 35.3 G/dL (31.0-37.0); MEAN CORPUSCULAR VOLUME 91 fL (80-100); MONOCYTES # (AUTO) 0.8 K/uL (0.1-1.0); NEUTROPHILS # (AUTO) 4.4 K/uL (1.8-7.7); NEUTROPHILS % (AUTO) 62.2 % (40.0-70.0); PLATELET COUNT (AUTO) 211 K/uL (150-450); RED CELL DISTRIBUTION WIDTH 12.7 % (11.5-14.5)
[2019-07-17 20:26] LABS: AMPHET/METH SCREEN,URINE NEGATIVE (NEGATIVE); BARBITURATE SCREEN, URINE NEGATIVE (NEGATIVE); BENZODIAZEPINES SCREEN,URINE NEGATIVE (NEGATIVE); CANNABINOID SCREEN,URINE NEGATIVE (NEGATIVE); COCAINE SCREEN,URINE NEGATIVE (NEGATIVE); METHADONE SCREEN, URINE NEGATIVE (NEGATIVE); OPIATE SCREEN,URINE NEGATIVE (NEGATIVE)
[2019-07-17 20:27] LABS: PHENCYCLIDINE SCREEN,URINE NEGATIVE (NEGATIVE)
[2019-07-17] MEDS ORDERED: ZOLPIDEM TARTRATE 10 MG TABLET PO PRN (20:30)
[2019-07-17] MEDS ORDERED: IBUPROFEN 400 MG TABLET PO ONE (20:30)
[2019-07-17] MEDS ORDERED: HALOPERIDOL 5 MG TABLET PO PRN (20:30)
[2019-07-17 20:37] LABS: ANION GAP 7 mmol/L (8-16); CALCIUM, TOTAL 8.4 mg/dL (8.8-10.5); CARBON DIOXIDE 28 mmol/L (22-29); CHLORIDE 100 mmol/L (98-107); CREATININE 0.86 mg/dL (0.60-1.30); GLOMERULAR FILTR. RATE CALC > 60 mL/min (>60); GLUCOSE,RANDOM 95 mg/dL (70-110); POTASSIUM 3.8 mmol/L (3.5-5.1); SODIUM SERUM 135 mmol/L (136-145); UREA NITROGEN, BLOOD 12 mg/dL (7-18)
[2019-07-17 20:43] LABS: ALANINE AMINOTRANSFERASE 53 U/L (12-78); ALBUMIN 3.9 g/dL (3.4-5.0); ALKALINE PHOSPHATASE 89 U/L (46-116); ASPARTATE AMINOTRANSFERASE 40 U/L (15-37); BILIRUBIN,TOTAL 0.2 mg/dL (0.1-1.0); TOTAL PROTEIN, SERUM 7.2 g/dL (6.4-8.2)
[2019-07-18] MEDS ORDERED: PNEUMOCOCCAL VACCINE POLYVALENT 0.5 ML VIAL [PPSV23] IM ONE (01:15)
[2019-07-18] MEDS ORDERED: INFLUENZA VIRUS VACCINE QVS 2019-20 (3YR+)/PF 60 MCG/0.5 ML SYRINGE IM ONE (01:15)
[2019-07-18 01:19] VITALS: BP 109/66
[2019-07-18 08:07] VITALS: BP 102/61
[2019-07-18] MEDS ORDERED: LOPERAMIDE HCL 2 MG CAPSULE PO PRN (09:45)
[2019-07-18] MEDS ORDERED: HydrOXYzine PAMOATE 50 MG CAPSULE PO PRN (09:45)
[2019-07-18] MEDS ORDERED: GuaiFENesin/D-METHORPHAN [SUGAR-FREE] 200-20MG/10 ML SYRUP UDCUP PO PRN (09:45)
[2019-07-18] MEDS ORDERED: MAGNESIUM HYDROXIDE SUSPENSION 30 ML UDCUP PO PRN (09:45)
[2019-07-18] MEDS ORDERED: TUBERCULIN, PURIFIED PROTEIN DERIVATIVE 5 TU/0.1 ML SYRINGE ID ONE (09:45)
[2019-07-18] MEDS ORDERED: MAG HYDROX/AL HYDROX/SIMETH ES 30 ML SUSPENSION UDCUP PO PRN (09:45)
[2019-07-18] MEDS ORDERED: PROMETHAZINE HCL 25 MG TABLET PO PRN (09:45)
[2019-07-18] MEDS ORDERED: ACETAMINOPHEN 325 MG TABLET PO PRN (09:45)
[2019-07-18] MEDS: LORazepam 2 MG TABLET PO PRN ×2 (12:32→17:13)
[2019-07-18 16:03] VITALS: BP 108/53
[2019-07-18] MEDS: THIAMINE HCL 100 MG TABLET PO SCH (16:38)
[2019-07-18] MEDS: DIVALPROEX SODIUM 500 MG ER TABLET PO SCH (20:12)
[2019-07-18] MEDS: QUEtiapine FUMARATE 200 MG TABLET PO SCH (20:12)
[2019-07-19] VITALS (9 sets, daily range): BP systolic 62–142; BP diastolic 47–93
[2019-07-19] MEDS: LORazepam 2 MG TABLET PO PRN (03:32)
[2019-07-19] MEDS: MULTIVITAMINS WITH MINERALS, THERAPEUTIC TABLET PO SCH (08:17)
[2019-07-19] MEDS: NALTREXONE HCL 50 MG TABLET PO SCH (08:18)
[2019-07-19] MEDS: FOLIC ACID 1 MG TABLET PO SCH (08:18)
[2019-07-19] MEDS: THIAMINE HCL 100 MG TABLET PO SCH ×2 (08:19→16:48)
[2019-07-19 08:21] LABS: CHOL/HDL RATIO 4.5 (4.2-7.3)
[2019-07-19] MEDS ORDERED: NALTREXONE HCL 50 MG TABLET PO SCH (09:00)
[2019-07-19 17:46] LABS: GLUCOMETER DEV NAME(LOC) BV3S.; GLUCOSE,POINT OF CARE 100 MG/DL (70-110)
[2019-07-19] MEDS: DIVALPROEX SODIUM 500 MG ER TABLET PO SCH (21:56)
[2019-07-19] MEDS: QUEtiapine FUMARATE 200 MG TABLET PO SCH (21:56)
[2019-07-20 06:31] VITALS: BP 130/72
[2019-07-20 08:18] VITALS: BP 116/78
[2019-07-20] MEDS: FOLIC ACID 1 MG TABLET PO SCH (09:27)
[2019-07-20] MEDS: MULTIVITAMINS WITH MINERALS, THERAPEUTIC TABLET PO SCH (09:27)
[2019-07-20] MEDS: NALTREXONE HCL 50 MG TABLET PO SCH (09:27)
[2019-07-20] MEDS: THIAMINE HCL 100 MG TABLET PO SCH (09:28)
[2019-07-20] MEDS ORDERED: NALT50TA6 PO (11:45)
[2019-07-20] MEDS ORDERED: QUET50TA PO (11:47)
== END 2019-07-20 13:30 | disposition home or self-care (01) | DRG 750 ==
LOC: EMS 20:20 → B3A 22:37
PROVIDERS: ADMIT Psychiatry & Neurology Child & Adolescent Psychiatry; ATTEND Psychiatry & Neurology Child & Adolescent Psychiatry
DX: F25.1 Schizoaffective disorder, depressive type (principal); R45.851 Suicidal ideations; G40.909 Epilepsy, unspecified, not intractable, without status epilepticus; D64.9 Anemia, unspecified; F41.9 Anxiety disorder, unspecified; I10 Essential (primary) hypertension; Z28.21 Immunization not carried out because of patient refusal; J45.909 Unspecified asthma, uncomplicated; F17.210 Nicotine dependence, cigarettes, uncomplicated; Z59.9 Problem related to housing and economic circumstances, unspecified; Z65.3 Problems related to other legal circumstances; Z79.899 Other long term (current) drug therapy; Z91.19 Patient's noncompliance with other medical treatment and regimen; Z91.5 Personal history of self-harm; M54.9 Dorsalgia, unspecified
CPT/HCPCS: G0480

== ENCOUNTER 2019-07-19 17:57 | Emergency (ER) | payer MEDICAID, OTHER ==
[~2019-07-19] VITALS: Ht 165.1 cm; Wt 90.9 kg
[~2019-07-19 17:57] MED LIST changes: -FERR-89 PO; +TRAZ-257 PO
[2019-07-19 19:20] LABS: BASOPHILS % (AUTO) 0.8 % (0.0-2.0); EOSINOPHILS % (AUTO) 1.8 % (1.0-6.0); HEMATOCRIT 37.6 % (41-53); HEMOGLOBIN 13.3 g/dL (13.5-17.5); LYMPHOCYTES # (AUTO) 1.5 K/uL (1.0-4.8); LYMPHOCYTES % (AUTO) 28.7 % (22.0-44.0); MEAN CORPUSCULAR HEMOGLOBIN 32.1 pg (26.0-34.0); MEAN CORPUSCULAR HGB CONC 35.3 G/dL (31.0-37.0); MEAN CORPUSCULAR VOLUME 91 fL (80-100); MONOCYTES # (AUTO) 0.4 K/uL (0.1-1.0); MONOCYTES % (AUTO) 8.2 % (2.0-9.0); NEUTROPHILS # (AUTO) 3.2 K/uL (1.8-7.7); NEUTROPHILS % (AUTO) 60.5 % (40.0-70.0); PLATELET COUNT (AUTO) 224 K/uL (150-450); RED BLOOD CELL COUNT(AUTO) 4.13 MIL/uL (4.50-5.90); RED CELL DISTRIBUTION WIDTH 12.6 % (11.5-14.5)
[2019-07-19 19:21] VITALS: BP 125/75
[2019-07-19 19:33] LABS: ANION GAP 10 mmol/L (8-16); CALCIUM, TOTAL 8.6 mg/dL (8.8-10.5); CARBON DIOXIDE 28 mmol/L (22-29); CHLORIDE 104 mmol/L (98-107); CREATININE 0.88 mg/dL (0.60-1.30); GLOMERULAR FILTR. RATE CALC > 60 mL/min (>60); GLUCOSE,RANDOM 107 mg/dL (70-110); POTASSIUM 4.1 mmol/L (3.5-5.1); SODIUM SERUM 142 mmol/L (136-145); UREA NITROGEN, BLOOD 13 mg/dL (7-18)
[2019-07-19 19:39] LABS: ALANINE AMINOTRANSFERASE 63 U/L (12-78); ALKALINE PHOSPHATASE 93 U/L (46-116); ASPARTATE AMINOTRANSFERASE 44 U/L (15-37); BILIRUBIN,TOTAL 0.2 mg/dL (0.1-1.0); TOTAL PROTEIN, SERUM 7.5 g/dL (6.4-8.2)
[2019-07-19] MEDS ORDERED: VALPROIC ACID 250 MG CAPSULE PO ONE (20:00)
[2019-07-19 20:45] LABS: APPEARANCE,URINE CLEAR (CLEAR); BILIRUBIN,URINE NEGATIVE (NEGATIVE); GLUCOSE, URINE (UA) NEGATIVE (NEGATIVE); KETONES,URINE NEGATIVE (NEGATIVE); LEUKOCYTE ESTERASE ,URINE NEGATIVE (NEGATIVE); NITRATE,URINE NEGATIVE (NEGATIVE); OCCULT BLOOD,URINE NEGATIVE (NEGATIVE); PH,URINE 6.5 (5.0-8.0); PROTEIN,URINE NEGATIVE (NEGATIVE); UROBILINOGEN,URINE 0.2 mg/dL (<=1.0)
[2019-07-19 20:50] LABS: AMPHET/METH SCREEN,URINE NEGATIVE (NEGATIVE); BARBITURATE SCREEN, URINE NEGATIVE (NEGATIVE); BENZODIAZEPINES SCREEN,URINE NEGATIVE (NEGATIVE); CANNABINOID SCREEN,URINE NEGATIVE (NEGATIVE); COCAINE SCREEN,URINE NEGATIVE (NEGATIVE); METHADONE SCREEN, URINE NEGATIVE (NEGATIVE); OPIATE SCREEN,URINE NEGATIVE (NEGATIVE)
[2019-07-19 20:57] LABS: PHENCYCLIDINE SCREEN,URINE NEGATIVE (NEGATIVE)
[2019-07-20] MEDS ORDERED: NALT50TA6 PO (11:45)
[2019-07-20] MEDS ORDERED: QUET50TA PO (11:47)
== END 2019-07-19 21:25 | disposition home or self-care (01) ==
LOC: EMS 17:59
DX: R56.9 Unspecified convulsions (principal); J45.909 Unspecified asthma, uncomplicated; F31.9 Bipolar disorder, unspecified; F20.9 Schizophrenia, unspecified; Z79.899 Other long term (current) drug therapy; Z88.8 Allergy status to other drugs, medicaments and biological substances; Z88.6 Allergy status to analgesic agent
CPT/HCPCS: 70450; 72125; 93005

== ENCOUNTER 2019-08-26 17:11 | Emergency (ER) | payer OTHER ==
[~2019-08-26] VITALS: Ht 165.1 cm; Wt 95.0 kg
[~2019-08-26 17:11] MED LIST changes: +NALT50TA6 PO; -QUET200T29 PO; +QUET50TA PO; -TRAZ-257 PO
[2019-08-26] MEDS ORDERED: QUET200T PO (17:44)
[2019-08-26] MEDS ORDERED: IBUPROFEN 800 MG TABLET PO ONE (17:45)
[2019-08-26 18:08] LABS: BASOPHILS % (AUTO) 0.4 % (0.0-2.0); EOSINOPHILS % (AUTO) 2.1 % (1.0-6.0); HEMATOCRIT 35.4 % (41-53); HEMOGLOBIN 12.7 g/dL (13.5-17.5); LYMPHOCYTES # (AUTO) 1.6 K/uL (1.0-4.8); MEAN CORPUSCULAR HEMOGLOBIN 32.7 pg (26.0-34.0); MEAN CORPUSCULAR HGB CONC 35.8 G/dL (31.0-37.0); MEAN CORPUSCULAR VOLUME 91 fL (80-100); MONOCYTES # (AUTO) 0.4 K/uL (0.1-1.0); MONOCYTES % (AUTO) 8.1 % (2.0-9.0); NEUTROPHILS % (AUTO) 58.4 % (40.0-70.0); PLATELET COUNT (AUTO) 198 K/uL (150-450); RED BLOOD CELL COUNT(AUTO) 3.88 MIL/uL (4.50-5.90); RED CELL DISTRIBUTION WIDTH 12.6 % (11.5-14.5)
[2019-08-26 18:16] LABS: ANION GAP 7 mmol/L (8-16); CALCIUM, TOTAL 8.3 mg/dL (8.8-10.5); CARBON DIOXIDE 28 mmol/L (22-29); CHLORIDE 104 mmol/L (98-107); CREATININE 0.84 mg/dL (0.60-1.30); GLOMERULAR FILTR. RATE CALC > 60 mL/min (>60); GLUCOSE,RANDOM 87 mg/dL (70-110); POTASSIUM 4.2 mmol/L (3.5-5.1); SODIUM SERUM 139 mmol/L (136-145); UREA NITROGEN, BLOOD 7 mg/dL (7-18)
[2019-08-26 18:22] LABS: ALANINE AMINOTRANSFERASE 67 U/L (12-78); ALBUMIN 3.9 g/dL (3.4-5.0); ALKALINE PHOSPHATASE 85 U/L (46-116); ASPARTATE AMINOTRANSFERASE 40 U/L (15-37); BILIRUBIN,TOTAL 0.2 mg/dL (0.1-1.0); TOTAL PROTEIN, SERUM 7.5 g/dL (6.4-8.2); VALPROIC ACID 41 mcg/mL (50-100)
[2019-08-26 19:51] VITALS: BP 134/91
== END 2019-08-26 20:20 | disposition home or self-care (01) ==
LOC: EMS 17:11
DX: R56.9 Unspecified convulsions (principal); T42.6X5A Adverse effect of other antiepileptic and sedative-hypnotic drugs, initial encounter; J45.909 Unspecified asthma, uncomplicated; F31.9 Bipolar disorder, unspecified; F20.9 Schizophrenia, unspecified; Z98.890 Other specified postprocedural states; Z79.899 Other long term (current) drug therapy; Z88.8 Allergy status to other drugs, medicaments and biological substances; Y92.89 Other specified places as the place of occurrence of the external cause
CPT/HCPCS: 93005

== ENCOUNTER 2019-08-30 21:41 | Inpatient (IN) | payer MEDICAID, OTHER ==
[~2019-08-30] VITALS: Ht 165.1 cm; Wt 90.9 kg
[~2019-08-30 21:41] MED LIST changes: +QUET200T PO; -QUET50TA PO
[2019-08-30 22:53] LABS: BASOPHILS % (AUTO) 0.6 % (0.0-2.0); EOSINOPHILS % (AUTO) 1.3 % (1.0-6.0); HEMATOCRIT 37.2 % (41-53); HEMOGLOBIN 13.1 g/dL (13.5-17.5); LYMPHOCYTES # (AUTO) 1.7 K/uL (1.0-4.8); LYMPHOCYTES % (AUTO) 31.5 % (22.0-44.0); MEAN CORPUSCULAR HEMOGLOBIN 32.3 pg (26.0-34.0); MEAN CORPUSCULAR HGB CONC 35.3 G/dL (31.0-37.0); MEAN CORPUSCULAR VOLUME 92 fL (80-100); MONOCYTES # (AUTO) 0.4 K/uL (0.1-1.0); MONOCYTES % (AUTO) 7.4 % (2.0-9.0); NEUTROPHILS # (AUTO) 3.1 K/uL (1.8-7.7); NEUTROPHILS % (AUTO) 59.2 % (40.0-70.0); PLATELET COUNT (AUTO) 211 K/uL (150-450); RED BLOOD CELL COUNT(AUTO) 4.07 MIL/uL (4.50-5.90); RED CELL DISTRIBUTION WIDTH 12.8 % (11.5-14.5)
[2019-08-30 23:08] LABS: ANION GAP 8 mmol/L (8-16); CARBON DIOXIDE 29 mmol/L (22-29); CHLORIDE 103 mmol/L (98-107); CREATININE 0.87 mg/dL (0.60-1.30); GLOMERULAR FILTR. RATE CALC > 60 mL/min (>60); GLUCOSE,RANDOM 102 mg/dL (70-110); POTASSIUM 4.3 mmol/L (3.5-5.1); SODIUM SERUM 140 mmol/L (136-145); UREA NITROGEN, BLOOD 11 mg/dL (7-18)
[2019-08-30 23:12] LABS: AMPHET/METH SCREEN,URINE NEGATIVE (NEGATIVE); BARBITURATE SCREEN, URINE NEGATIVE (NEGATIVE); BENZODIAZEPINES SCREEN,URINE NEGATIVE (NEGATIVE); CANNABINOID SCREEN,URINE NEGATIVE (NEGATIVE); COCAINE SCREEN,URINE NEGATIVE (NEGATIVE); METHADONE SCREEN, URINE NEGATIVE (NEGATIVE); OPIATE SCREEN,URINE NEGATIVE (NEGATIVE)
[2019-08-30 23:15] LABS: PHENCYCLIDINE SCREEN,URINE NEGATIVE (NEGATIVE)
[2019-08-30] MEDS ORDERED: TETRACAINE HCL/PF 0.5% 4 ML OPHTHALMIC SOLUTION OD ONE (23:15)
[2019-08-30 23:21] LABS: ALANINE AMINOTRANSFERASE 66 U/L (12-78); ALBUMIN 4.3 g/dL (3.4-5.0); ALKALINE PHOSPHATASE 91 U/L (46-116); ASPARTATE AMINOTRANSFERASE 34 U/L (15-37); BILIRUBIN,TOTAL 0.2 mg/dL (0.1-1.0); TOTAL PROTEIN, SERUM 7.9 g/dL (6.4-8.2)
[2019-08-30] MEDS ORDERED: FLUORESCEIN SODIUM 1 MG STRIP OD ONE (23:30)
[2019-08-31] MEDS ORDERED: ZOLPIDEM TARTRATE 10 MG TABLET PO PRN (06:00)
[2019-08-31] MEDS ORDERED: HALOPERIDOL 5 MG TABLET PO PRN (06:00)
[2019-08-31 08:30] VITALS: BP 127/85
[2019-08-31] MEDS ORDERED: INFLUENZA VIRUS VACCINE QVS 2019-20 (3YR+)/PF 60 MCG/0.5 ML SYRINGE IM ONE (08:45)
[2019-08-31] MEDS: DIVALPROEX SODIUM 500 MG DR TABLET PO SCH ×2 (13:30→20:46)
[2019-08-31] MEDS ORDERED: DOCUSATE SODIUM 100 MG CAPSULE PO PRN (15:15)
[2019-08-31] MEDS ORDERED: IBUPROFEN 400 MG TABLET PO PRN (15:15)
[2019-08-31] MEDS ORDERED: GuaiFENesin/D-METHORPHAN [SUGAR-FREE] 200-20MG/10 ML SYRUP UDCUP PO PRN (15:15)
[2019-08-31] MEDS ORDERED: PETROLATUM,WHITE 28 GM JELLY TP PRN (15:15)
[2019-08-31] MEDS ORDERED: LOPERAMIDE HCL 2 MG CAPSULE PO PRN (15:15)
[2019-08-31] MEDS ORDERED: ONDANSETRON HCL 4 MG TABLET PO PRN (15:15)
[2019-08-31] MEDS ORDERED: NICOTINE 14 MG/24 HOUR PATCH TD PRN (15:15)
[2019-08-31] MEDS ORDERED: MAG HYDROX/AL HYDROX/SIMETH ES 30 ML SUSPENSION UDCUP PO PRN (15:15)
[2019-08-31] MEDS ORDERED: ALBUTEROL SULFATE HFA 90 MCG/PUFF 8 GM INHALER IH PRN (15:15)
[2019-08-31] MEDS ORDERED: MAGNESIUM HYDROXIDE SUSPENSION 30 ML UDCUP PO PRN (15:15)
[2019-08-31] MEDS ORDERED: CloNIDine HCL 0.1 MG TABLET PO PRN (15:15)
[2019-08-31 16:22] VITALS: BP 105/66
[2019-08-31] MEDS: TraZODone HCL 50 MG TABLET PO SCH (20:46)
[2019-08-31] MEDS: QUEtiapine FUMARATE 200 MG TABLET PO SCH (20:46)
[2019-09-01] MEDS: DIVALPROEX SODIUM 500 MG DR TABLET PO SCH ×2 (09:21→20:20)
[2019-09-01] MEDS: GENTAMICIN SULFATE 0.3% OPHTHALMIC SOLUTION 5 ML OU SCH ×4 (09:22→20:20)
[2019-09-01 16:56] VITALS: BP 125/91
[2019-09-01] MEDS: QUEtiapine FUMARATE 200 MG TABLET PO SCH (20:20)
[2019-09-01] MEDS: TraZODone HCL 50 MG TABLET PO SCH (20:20)
[2019-09-02] MEDS: GENTAMICIN SULFATE 0.3% OPHTHALMIC SOLUTION 5 ML OU SCH ×4 (08:13→20:16)
[2019-09-02 08:15] VITALS: BP 122/86
[2019-09-02] MEDS: ACETAMINOPHEN 325 MG TABLET PO PRN ×2 (08:18→20:15)
[2019-09-02] MEDS: DIVALPROEX SODIUM 500 MG DR TABLET PO SCH ×2 (08:20→20:16)
[2019-09-02 08:31] LABS: CHOL/HDL RATIO 6.7 (4.2-7.3)
[2019-09-02 09:06] VITALS: BP 122/86
[2019-09-02] MEDS: LORazepam 2 MG TABLET PO PRN ×2 (13:08→18:50)
[2019-09-02 16:48] VITALS: BP 138/84
[2019-09-02 20:10] VITALS: BP 130/80
[2019-09-02] MEDS: QUEtiapine FUMARATE 200 MG TABLET PO SCH (20:15)
[2019-09-02] MEDS: TraZODone HCL 50 MG TABLET PO SCH (20:16)
[2019-09-02] MEDS ORDERED: SIMVASTATIN 10 MG TABLET PO SCH (21:00)
[2019-09-03] MEDS: GENTAMICIN SULFATE 0.3% OPHTHALMIC SOLUTION 5 ML OU SCH ×2 (08:19→12:29)
[2019-09-03] MEDS: DIVALPROEX SODIUM 500 MG DR TABLET PO SCH (08:19)
[2019-09-03 10:03] VITALS: BP 135/76
[2019-09-03] MEDS ORDERED: DIVA-78 PO (12:19)
[2019-09-03] MEDS ORDERED: TRAZ-184 PO (12:20)
[2019-09-03] MEDS ORDERED: SIMV5TAB59 PO (12:34)
[2019-09-03] MEDS ORDERED: GENT5DRO32 OU (12:35)
== END 2019-09-03 12:55 | disposition home or self-care (01) | DRG 885 ==
LOC: EMS 21:42 → 3EI 08-31 06:30
PROVIDERS: ADMIT Psychiatry & Neurology Psychiatry; ATTEND Psychiatry & Neurology Child & Adolescent Psychiatry
DX: F25.0 Schizoaffective disorder, bipolar type (principal); R45.851 Suicidal ideations; J45.909 Unspecified asthma, uncomplicated; I10 Essential (primary) hypertension; F84.0 Autistic disorder; E78.5 Hyperlipidemia, unspecified; G40.909 Epilepsy, unspecified, not intractable, without status epilepticus; G89.29 Other chronic pain; H11.003 Unspecified pterygium of eye, bilateral; K74.60 Unspecified cirrhosis of liver; Z59.0 Homelessness
CPT/HCPCS: G0480; Q0162

== ENCOUNTER 2019-09-15 00:09 | Emergency (ER) | payer MEDICAID, OTHER ==
[~2019-09-15] VITALS: Ht 165.1 cm; Wt 88.6 kg
[~2019-09-15 00:09] MED LIST changes: +DIVA-78 PO; -DIVA500T52 PO; +GENT5DRO32 OU; -NALT50TA6 PO; +SIMV5TAB59 PO; +TRAZ-184 PO
[2019-09-15] MEDS ORDERED: ALBUTEROL SULFATE 5 MG/ML 20 ML NEB SOLN [BULK] NEB ONE (01:45)
[2019-09-15] MEDS ORDERED: 0.9% SODIUM CHLORIDE 5 ML NEB SOLUTION NEB ONE (01:55)
[2019-09-15 03:25] VITALS: BP 122/80
== END 2019-09-15 03:26 | disposition home or self-care (01) ==
LOC: EMS 00:10
DX: S60.511A Abrasion of right hand, initial encounter (principal); R03.0 Elevated blood-pressure reading, without diagnosis of hypertension; R45.1 Restlessness and agitation; J45.901 Unspecified asthma with (acute) exacerbation; F31.9 Bipolar disorder, unspecified; F20.9 Schizophrenia, unspecified; Z98.890 Other specified postprocedural states; Z79.899 Other long term (current) drug therapy; Z88.8 Allergy status to other drugs, medicaments and biological substances; Z88.6 Allergy status to analgesic agent; W22.01XA Walked into wall, initial encounter; Y93.89 Activity, other specified; Y92.89 Other specified places as the place of occurrence of the external cause; Y99.8 Other external cause status
CPT/HCPCS: 93005; 94640

== ENCOUNTER 2019-09-27 18:19 | Emergency (ER) | payer OTHER ==
[~2019-09-27] VITALS: Ht 165.1 cm; Wt 77.3 kg
[~2019-09-27 18:19] MED LIST changes: -GENT5DRO32 OU
[2019-09-27] MEDS ORDERED: IBUPROFEN 600 MG TABLET PO ONE (19:30)
[2019-09-27 20:44] VITALS: BP 127/82
== END 2019-09-27 20:50 | disposition home or self-care (01) ==
LOC: EMS 18:22
DX: S63.501A Unspecified sprain of right wrist, initial encounter (principal); J45.909 Unspecified asthma, uncomplicated; F31.9 Bipolar disorder, unspecified; F20.9 Schizophrenia, unspecified; Z88.8 Allergy status to other drugs, medicaments and biological substances; Z91.018 Allergy to other foods; W22.8XXA Striking against or struck by other objects, initial encounter; Y93.89 Activity, other specified; Y92.89 Other specified places as the place of occurrence of the external cause; Y99.8 Other external cause status
CPT/HCPCS: 29280

== ENCOUNTER 2019-09-28 00:44 | Emergency (ER) | payer OTHER ==
[~2019-09-28] VITALS: Ht 170.2 cm; Wt 94.1 kg
[2019-09-28 01:48] LABS: BASOPHILS % (AUTO) 0.4 % (0.0-2.0); EOSINOPHILS % (AUTO) 2.5 % (1.0-6.0); HEMATOCRIT 36.3 % (41-53); HEMOGLOBIN 12.6 g/dL (13.5-17.5); LYMPHOCYTES # (AUTO) 1.8 K/uL (1.0-4.8); LYMPHOCYTES % (AUTO) 32.9 % (22.0-44.0); MEAN CORPUSCULAR HEMOGLOBIN 32.1 pg (26.0-34.0); MEAN CORPUSCULAR HGB CONC 34.7 G/dL (31.0-37.0); MEAN CORPUSCULAR VOLUME 92 fL (80-100); MONOCYTES # (AUTO) 0.5 K/uL (0.1-1.0); MONOCYTES % (AUTO) 9.4 % (2.0-9.0); NEUTROPHILS # (AUTO) 2.9 K/uL (1.8-7.7); NEUTROPHILS % (AUTO) 54.8 % (40.0-70.0); PLATELET COUNT (AUTO) 208 K/uL (150-450); RED BLOOD CELL COUNT(AUTO) 3.93 MIL/uL (4.50-5.90); RED CELL DISTRIBUTION WIDTH 12.5 % (11.5-14.5)
[2019-09-28 01:57] LABS: ANION GAP 9 mmol/L (8-16); CALCIUM, TOTAL 8.7 mg/dL (8.8-10.5); CARBON DIOXIDE 27 mmol/L (22-29); CHLORIDE 102 mmol/L (98-107); CREATININE 0.78 mg/dL (0.60-1.30); GLOMERULAR FILTR. RATE CALC > 60 mL/min (>60); GLUCOSE,RANDOM 120 mg/dL (70-110); POTASSIUM 3.8 mmol/L (3.5-5.1); SODIUM SERUM 138 mmol/L (136-145); UREA NITROGEN, BLOOD 16 mg/dL (7-18)
[2019-09-28 02:21] LABS: CREATINE KINASE, TOTAL ONLY 451 U/L (39-308); VALPROIC ACID 38 mcg/mL (50-100)
[2019-09-28 03:30] VITALS: BP 117/84
[2019-09-28] MEDS ORDERED: DIVALPROEX SODIUM 250 MG DR TABLET PO ONE (04:00)
[2019-09-28 04:33] LABS: ALANINE AMINOTRANSFERASE 62 U/L (12-78); ALBUMIN 3.6 g/dL (3.4-5.0); ALKALINE PHOSPHATASE 95 U/L (46-116); ASPARTATE AMINOTRANSFERASE 37 U/L (15-37); BILIRUBIN,TOTAL 0.1 mg/dL (0.1-1.0); TOTAL PROTEIN, SERUM 7.1 g/dL (6.4-8.2)
== END 2019-09-28 04:17 | disposition home or self-care (01) ==
LOC: EMS 00:44
DX: G40.909 Epilepsy, unspecified, not intractable, without status epilepticus (principal); F20.9 Schizophrenia, unspecified; J45.909 Unspecified asthma, uncomplicated; F31.9 Bipolar disorder, unspecified; Z79.899 Other long term (current) drug therapy; Z91.018 Allergy to other foods

== ENCOUNTER 2019-09-28 12:09 | Inpatient (IN) | payer MEDICAID, OTHER ==
[~2019-09-28] VITALS: Ht 165.1 cm; Wt 93.0 kg
[2019-09-28] MEDS ORDERED: HALOPERIDOL 5 MG TABLET PO PRN (13:45)
[2019-09-28] MEDS ORDERED: ZOLPIDEM TARTRATE 10 MG TABLET PO PRN (13:45)
[2019-09-28 13:52] LABS: BASOPHILS % (AUTO) 0.6 % (0.0-2.0); EOSINOPHILS % (AUTO) 2.3 % (1.0-6.0); HEMATOCRIT 37.7 % (41-53); HEMOGLOBIN 12.9 g/dL (13.5-17.5); LYMPHOCYTES # (AUTO) 1.2 K/uL (1.0-4.8); LYMPHOCYTES % (AUTO) 25.2 % (22.0-44.0); MEAN CORPUSCULAR HEMOGLOBIN 31.5 pg (26.0-34.0); MEAN CORPUSCULAR HGB CONC 34.1 G/dL (31.0-37.0); MEAN CORPUSCULAR VOLUME 92 fL (80-100); MONOCYTES # (AUTO) 0.4 K/uL (0.1-1.0); MONOCYTES % (AUTO) 8.1 % (2.0-9.0); NEUTROPHILS % (AUTO) 63.8 % (40.0-70.0); PLATELET COUNT (AUTO) 205 K/uL (150-450); RED BLOOD CELL COUNT(AUTO) 4.09 MIL/uL (4.50-5.90); RED CELL DISTRIBUTION WIDTH 12.7 % (11.5-14.5)
[2019-09-28 14:00] LABS: APPEARANCE,URINE CLEAR (CLEAR); BILIRUBIN,URINE NEGATIVE (NEGATIVE); GLUCOSE, URINE (UA) NEGATIVE (NEGATIVE); KETONES,URINE TRACE mg/dL (NEGATIVE); LEUKOCYTE ESTERASE ,URINE NEGATIVE (NEGATIVE); NITRATE,URINE NEGATIVE (NEGATIVE); OCCULT BLOOD,URINE NEGATIVE (NEGATIVE); PROTEIN,URINE NEGATIVE (NEGATIVE); UROBILINOGEN,URINE 0.2 mg/dL (<=1.0)
[2019-09-28 14:07] LABS: AMPHET/METH SCREEN,URINE NEGATIVE (NEGATIVE); BARBITURATE SCREEN, URINE NEGATIVE (NEGATIVE); BENZODIAZEPINES SCREEN,URINE NEGATIVE (NEGATIVE); CANNABINOID SCREEN,URINE NEGATIVE (NEGATIVE); COCAINE SCREEN,URINE NEGATIVE (NEGATIVE); METHADONE SCREEN, URINE NEGATIVE (NEGATIVE); OPIATE SCREEN,URINE NEGATIVE (NEGATIVE)
[2019-09-28 14:15] LABS: ANION GAP 10 mmol/L (8-16); CALCIUM, TOTAL 8.3 mg/dL (8.8-10.5); CARBON DIOXIDE 28 mmol/L (22-29); CHLORIDE 103 mmol/L (98-107); CREATININE 0.82 mg/dL (0.60-1.30); GLOMERULAR FILTR. RATE CALC > 60 mL/min (>60); GLUCOSE,RANDOM 130 mg/dL (70-110); POTASSIUM 4.3 mmol/L (3.5-5.1); SODIUM SERUM 141 mmol/L (136-145); UREA NITROGEN, BLOOD 12 mg/dL (7-18)
[2019-09-28 14:18] LABS: PHENCYCLIDINE SCREEN,URINE NEGATIVE (NEGATIVE)
[2019-09-28 14:23] LABS: ALANINE AMINOTRANSFERASE 64 U/L (12-78); ALBUMIN 3.7 g/dL (3.4-5.0); ALKALINE PHOSPHATASE 92 U/L (46-116); ASPARTATE AMINOTRANSFERASE 36 U/L (15-37); BILIRUBIN,TOTAL 0.2 mg/dL (0.1-1.0); TOTAL PROTEIN, SERUM 7.3 g/dL (6.4-8.2)
[2019-09-28 18:00] VITALS: BP 129/69
[2019-09-28 18:47] VITALS: BP 129/69
[2019-09-28] MEDS: TraZODone HCL 50 MG TABLET PO SCH (20:05)
[2019-09-28] MEDS: QUEtiapine FUMARATE 200 MG TABLET PO SCH (20:05)
[2019-09-28] MEDS: DIVALPROEX SODIUM 500 MG DR TABLET PO SCH (20:05)
[2019-09-28] MEDS: SIMVASTATIN 10 MG TABLET PO SCH (20:05)
[2019-09-29] MEDS: DIVALPROEX SODIUM 500 MG DR TABLET PO SCH ×3 (09:00→20:24)
[2019-09-29] MEDS: BACITRACIN 28.4 GM OINTMENT TP SCH ×3 (09:00→16:03)
[2019-09-29] MEDS: LORazepam 2 MG TABLET PO PRN (12:41)
[2019-09-29] MEDS ORDERED: ACETAMINOPHEN 325 MG TABLET PO PRN (14:00)
[2019-09-29 14:15] VITALS: BP 142/85
[2019-09-29] MEDS: LevETIRAcetam 250 MG TABLET PO SCH ×2 (14:25→16:03)
[2019-09-29] MEDS ORDERED: LORazepam 2 MG/ML VIAL ONE (14:28)
[2019-09-29] MEDS ORDERED: CloNIDine HCL 0.1 MG TABLET PO PRN (14:30)
[2019-09-29] MEDS ORDERED: MAG HYDROX/AL HYDROX/SIMETH ES 30 ML SUSPENSION UDCUP PO PRN (14:30)
[2019-09-29] MEDS ORDERED: ONDANSETRON HCL 4 MG TABLET PO PRN (14:30)
[2019-09-29] MEDS ORDERED: GuaiFENesin/D-METHORPHAN [SUGAR-FREE] 200-20MG/10 ML SYRUP UDCUP PO PRN (14:30)
[2019-09-29] MEDS ORDERED: DOCUSATE SODIUM 100 MG CAPSULE PO PRN (14:30)
[2019-09-29] MEDS ORDERED: PETROLATUM,WHITE 28 GM JELLY TP PRN (14:30)
[2019-09-29] MEDS ORDERED: IBUPROFEN 400 MG TABLET PO PRN (14:30)
[2019-09-29] MEDS ORDERED: LOPERAMIDE HCL 2 MG CAPSULE PO PRN (14:30)
[2019-09-29] MEDS ORDERED: ALBUTEROL SULFATE HFA 90 MCG/PUFF 8 GM INHALER IH PRN (14:30)
[2019-09-29] MEDS ORDERED: NICOTINE 14 MG/24 HOUR PATCH TD PRN (14:30)
[2019-09-29] MEDS ORDERED: MAGNESIUM HYDROXIDE SUSPENSION 30 ML UDCUP PO PRN (14:30)
[2019-09-29] MEDS: ACETAMINOPHEN 325 MG TABLET PO PRN (14:39)
[2019-09-29 14:43] LABS: GLUCOMETER DEV NAME(LOC) 3E.I 2; GLUCOSE,POINT OF CARE 86 MG/DL (70-110)
[2019-09-29] MEDS ORDERED: LORazepam 2 MG/ML VIAL IM PRN (14:45)
[2019-09-29 17:16] VITALS: BP 114/79
[2019-09-29] MEDS: TraZODone HCL 50 MG TABLET PO SCH (20:25)
[2019-09-29] MEDS: QUEtiapine FUMARATE 200 MG TABLET PO SCH (20:25)
[2019-09-29] MEDS: SIMVASTATIN 10 MG TABLET PO SCH (20:25)
[2019-09-29] MEDS ORDERED: [UNRECOGNIZED DRUG - OTHER] PO SCH (21:00)
[2019-09-29] MEDS ORDERED: DIVALPROEX SODIUM 500 MG DR TABLET PO SCH (21:00)
[2019-09-30] MEDS: DIVALPROEX SODIUM 500 MG DR TABLET PO SCH ×2 (08:38→20:06)
[2019-09-30] MEDS: LevETIRAcetam 250 MG TABLET PO SCH ×2 (08:39→16:28)
[2019-09-30] MEDS: BACITRACIN 28.4 GM OINTMENT TP SCH ×2 (09:17→16:29)
[2019-09-30 09:32] VITALS: BP 124/68
[2019-09-30] MEDS: LORazepam 2 MG TABLET PO PRN (11:03)
[2019-09-30 12:22] LABS: CHOL/HDL RATIO 5.7 (4.2-7.3); FREE T4 (FREE THYROXINE) 0.85 ng/dL (0.76-1.46); THYROID STIMULATING HORMONE 2.58 uIU/mL (0.36-3.74)
[2019-09-30] MEDS: ACETAMINOPHEN 325 MG TABLET PO PRN ×2 (14:08→20:10)
[2019-09-30 16:17] VITALS: BP 128/75
[2019-09-30] MEDS: CIPROFLOXACIN HCL 0.3% 2.5 ML OPHTHALMIC SOLUTION OU SCH (16:28)
[2019-09-30] MEDS: SIMVASTATIN 10 MG TABLET PO SCH (20:06)
[2019-09-30] MEDS: QUEtiapine FUMARATE 200 MG TABLET PO SCH (20:06)
[2019-09-30] MEDS: TraZODone HCL 50 MG TABLET PO SCH (20:07)
[2019-10-01] MEDS: DIVALPROEX SODIUM 500 MG DR TABLET PO SCH (08:41)
[2019-10-01] MEDS: LevETIRAcetam 250 MG TABLET PO SCH (08:42)
[2019-10-01] MEDS: CIPROFLOXACIN HCL 0.3% 2.5 ML OPHTHALMIC SOLUTION OU SCH (08:42)
[2019-10-01] MEDS: BACITRACIN 28.4 GM OINTMENT TP SCH (08:42)
[2019-10-01 09:00] VITALS: BP 128/76
[2019-10-01] MEDS ORDERED: CILOOO OU (12:15)
[2019-10-01] MEDS ORDERED: LEVE250T55 PO (12:15)
[2019-10-01] MEDS ORDERED: BACI500P3 TP (12:15)
== END 2019-10-01 12:40 | disposition home or self-care (01) | DRG 885 ==
LOC: EMS 12:11 → 3EI 16:46
PROVIDERS: ADMIT Psychiatry & Neurology Child & Adolescent Psychiatry; ATTEND Psychiatry & Neurology Child & Adolescent Psychiatry
DX: F25.1 Schizoaffective disorder, depressive type (principal); R45.851 Suicidal ideations; J45.909 Unspecified asthma, uncomplicated; K76.9 Liver disease, unspecified; Q90.9 Down syndrome, unspecified; M54.9 Dorsalgia, unspecified; F41.9 Anxiety disorder, unspecified; E78.5 Hyperlipidemia, unspecified; G40.909 Epilepsy, unspecified, not intractable, without status epilepticus; D64.9 Anemia, unspecified; Z88.8 Allergy status to other drugs, medicaments and biological substances
CPT/HCPCS: 84439; 84443; 87081; G0480; J2060

== ENCOUNTER 2019-10-02 22:32 | Inpatient (IN) | payer MEDICAID, OTHER ==
[~2019-10-02] VITALS: Ht 165.1 cm; Wt 92.1 kg
[~2019-10-02 22:32] MED LIST changes: +BACI500P3 TP; +CILOOO OU; +LEVE250T55 PO
[2019-10-02] MEDS ORDERED: LORazepam 2 MG/ML VIAL ONE (22:58)
[2019-10-02 23:54] LABS: BASOPHILS % (AUTO) 0.4 % (0.0-2.0); EOSINOPHILS % (AUTO) 0.8 % (1.0-6.0); HEMATOCRIT 38.6 % (41-53); HEMOGLOBIN 13.5 g/dL (13.5-17.5); LYMPHOCYTES # (AUTO) 1.7 K/uL (1.0-4.8); LYMPHOCYTES % (AUTO) 23.8 % (22.0-44.0); MEAN CORPUSCULAR HEMOGLOBIN 32.3 pg (26.0-34.0); MEAN CORPUSCULAR HGB CONC 35.1 G/dL (31.0-37.0); MEAN CORPUSCULAR VOLUME 92 fL (80-100); MONOCYTES # (AUTO) 0.7 K/uL (0.1-1.0); MONOCYTES % (AUTO) 9.4 % (2.0-9.0); NEUTROPHILS # (AUTO) 4.7 K/uL (1.8-7.7); NEUTROPHILS % (AUTO) 65.6 % (40.0-70.0); PLATELET COUNT (AUTO) 226 K/uL (150-450); RED BLOOD CELL COUNT(AUTO) 4.19 MIL/uL (4.50-5.90); RED CELL DISTRIBUTION WIDTH 12.8 % (11.5-14.5)
[2019-10-03 00:03] LABS: ANION GAP 7 mmol/L (8-16); CARBON DIOXIDE 29 mmol/L (22-29); CHLORIDE 100 mmol/L (98-107); CREATININE 0.88 mg/dL (0.60-1.30); GLOMERULAR FILTR. RATE CALC > 60 mL/min (>60); GLUCOSE,RANDOM 100 mg/dL (70-110); POTASSIUM 3.8 mmol/L (3.5-5.1); SODIUM SERUM 136 mmol/L (136-145); UREA NITROGEN, BLOOD 16 mg/dL (7-18)
[2019-10-03 00:09] LABS: ALANINE AMINOTRANSFERASE 63 U/L (12-78); ALBUMIN 4.4 g/dL (3.4-5.0); ALKALINE PHOSPHATASE 83 U/L (46-116); ASPARTATE AMINOTRANSFERASE 39 U/L (15-37); BILIRUBIN,TOTAL 0.2 mg/dL (0.1-1.0); TOTAL PROTEIN, SERUM 8.3 g/dL (6.4-8.2); VALPROIC ACID 32 mcg/mL (50-100)
[2019-10-03 00:17] LABS: AMPHET/METH SCREEN,URINE NEGATIVE (NEGATIVE); BARBITURATE SCREEN, URINE NEGATIVE (NEGATIVE); BENZODIAZEPINES SCREEN,URINE NEGATIVE (NEGATIVE); CANNABINOID SCREEN,URINE NEGATIVE (NEGATIVE); COCAINE SCREEN,URINE NEGATIVE (NEGATIVE); METHADONE SCREEN, URINE NEGATIVE (NEGATIVE); OPIATE SCREEN,URINE NEGATIVE (NEGATIVE)
[2019-10-03 00:23] LABS: PHENCYCLIDINE SCREEN,URINE NEGATIVE (NEGATIVE)
[2019-10-03] MEDS ORDERED: HALOPERIDOL 5 MG TABLET PO PRN (02:45)
[2019-10-03] MEDS ORDERED: INFLUENZA VIRUS VACCINE QVS 2019-20 (3YR+)/PF 60 MCG/0.5 ML SYRINGE IM ONE (04:00)
[2019-10-03] MEDS ORDERED: PNEUMOCOCCAL VACCINE POLYVALENT 0.5 ML VIAL [PPSV23] IM ONE (04:00)
[2019-10-03 04:58] VITALS: BP 117/79
[2019-10-03 08:45] VITALS: BP 121/58
[2019-10-03 16:08] VITALS: BP 128/67
[2019-10-03] MEDS: LORazepam 2 MG TABLET PO PRN (16:11)
[2019-10-03] MEDS ORDERED: ALBUTEROL SULFATE HFA 90 MCG/PUFF 8 GM INHALER IH PRN (17:15)
[2019-10-03] MEDS ORDERED: MAGNESIUM HYDROXIDE SUSPENSION 30 ML UDCUP PO PRN (17:15)
[2019-10-03] MEDS ORDERED: GuaiFENesin/D-METHORPHAN [SUGAR-FREE] 200-20MG/10 ML SYRUP UDCUP PO PRN (17:15)
[2019-10-03] MEDS ORDERED: ONDANSETRON HCL 4 MG TABLET PO PRN (17:15)
[2019-10-03] MEDS ORDERED: DOCUSATE SODIUM 100 MG CAPSULE PO PRN (17:15)
[2019-10-03] MEDS ORDERED: NICOTINE 14 MG/24 HOUR PATCH TD PRN (17:15)
[2019-10-03] MEDS ORDERED: MAG HYDROX/AL HYDROX/SIMETH ES 30 ML SUSPENSION UDCUP PO PRN (17:15)
[2019-10-03] MEDS ORDERED: PETROLATUM,WHITE 28 GM JELLY TP PRN (17:15)
[2019-10-03] MEDS ORDERED: ACETAMINOPHEN 325 MG TABLET PO PRN (17:15)
[2019-10-03] MEDS ORDERED: LOPERAMIDE HCL 2 MG CAPSULE PO PRN (17:15)
[2019-10-03] MEDS ORDERED: CloNIDine HCL 0.1 MG TABLET PO PRN (17:15)
[2019-10-03] MEDS: IBUPROFEN 400 MG TABLET PO PRN (17:33)
[2019-10-03] MEDS: ZOLPIDEM TARTRATE 10 MG TABLET PO PRN (20:33)
[2019-10-03] MEDS: DIVALPROEX SODIUM 500 MG DR TABLET PO SCH (20:33)
[2019-10-03] MEDS: SIMVASTATIN 10 MG TABLET PO SCH (20:35)
[2019-10-03] MEDS ORDERED: DIVALPROEX SODIUM 500 MG DR TABLET PO SCH (21:00)
[2019-10-04 05:51] VITALS: BP 129/63
[2019-10-04 08:13] LABS: CHOL/HDL RATIO 5.4 (4.2-7.3)
[2019-10-04] MEDS: LevETIRAcetam 250 MG TABLET PO SCH ×2 (09:34→16:39)
[2019-10-04] MEDS: DIVALPROEX SODIUM 500 MG DR TABLET PO SCH ×2 (09:34→20:26)
[2019-10-04] MEDS: LORazepam 2 MG TABLET PO PRN ×2 (11:42→16:39)
[2019-10-04] MEDS: IBUPROFEN 400 MG TABLET PO PRN (11:42)
[2019-10-04 16:05] VITALS: BP 125/77
[2019-10-04] MEDS: SIMVASTATIN 10 MG TABLET PO SCH (20:26)
[2019-10-04] MEDS: ZOLPIDEM TARTRATE 10 MG TABLET PO PRN (21:48)
[2019-10-05 03:34] VITALS: BP 126/85
[2019-10-05] MEDS: LORazepam 2 MG TABLET PO PRN ×3 (03:34→20:16)
[2019-10-05 03:35] VITALS: BP 127/101
[2019-10-05 08:29] VITALS: BP 107/62
[2019-10-05] MEDS: DIVALPROEX SODIUM 500 MG DR TABLET PO SCH ×2 (08:41→20:15)
[2019-10-05] MEDS: LevETIRAcetam 250 MG TABLET PO SCH ×2 (08:42→16:08)
[2019-10-05] MEDS: IBUPROFEN 400 MG TABLET PO PRN (14:39)
[2019-10-05 17:03] VITALS: BP 136/88
[2019-10-05] MEDS: SIMVASTATIN 10 MG TABLET PO SCH (20:15)
[2019-10-06] MEDS: ZOLPIDEM TARTRATE 10 MG TABLET PO PRN (02:18)
[2019-10-06 05:36] VITALS: BP 128/86
[2019-10-06] MEDS: LORazepam 2 MG TABLET PO PRN (08:31)
[2019-10-06] MEDS: DIVALPROEX SODIUM 500 MG DR TABLET PO SCH (08:32)
[2019-10-06] MEDS: LevETIRAcetam 250 MG TABLET PO SCH ×2 (08:32→16:00)
[2019-10-06 08:40] VITALS: BP 132/74
[2019-10-06 16:04] VITALS: BP 140/71
== END 2019-10-06 18:10 | disposition home or self-care (01) | DRG 750 ==
LOC: EMS 22:32 → B3A 10-03 02:30 → B2S 10-06 10:03
PROVIDERS: ADMIT Psychiatry & Neurology Child & Adolescent Psychiatry; ATTEND Psychiatry & Neurology Child & Adolescent Psychiatry
DX: F20.9 Schizophrenia, unspecified (principal); G40.909 Epilepsy, unspecified, not intractable, without status epilepticus; R45.851 Suicidal ideations; D64.9 Anemia, unspecified; E78.5 Hyperlipidemia, unspecified; F31.9 Bipolar disorder, unspecified; F84.0 Autistic disorder; J45.909 Unspecified asthma, uncomplicated; I10 Essential (primary) hypertension; Z79.899 Other long term (current) drug therapy
CPT/HCPCS: 87081; G0480; J2060; Q0162

== ENCOUNTER 2019-10-14 19:50 | Inpatient (IN) | payer MEDICAID, OTHER ==
[~2019-10-14] VITALS: Ht 165.1 cm; Wt 94.1 kg
[~2019-10-14 19:50] MED LIST changes: -BACI500P3 TP; -CILOOO OU; -QUET200T PO; -TRAZ-184 PO
[2019-10-14 20:59] LABS: BASOPHILS % (AUTO) 0.7 % (0.0-2.0); EOSINOPHILS % (AUTO) 3.9 % (1.0-6.0); HEMATOCRIT 37.8 % (41-53); LYMPHOCYTES # (AUTO) 1.8 K/uL (1.0-4.8); LYMPHOCYTES % (AUTO) 31.9 % (22.0-44.0); MEAN CORPUSCULAR HEMOGLOBIN 31.6 pg (26.0-34.0); MEAN CORPUSCULAR HGB CONC 34.4 G/dL (31.0-37.0); MEAN CORPUSCULAR VOLUME 92 fL (80-100); MONOCYTES # (AUTO) 0.5 K/uL (0.1-1.0); MONOCYTES % (AUTO) 8.8 % (2.0-9.0); NEUTROPHILS # (AUTO) 3.1 K/uL (1.8-7.7); NEUTROPHILS % (AUTO) 54.7 % (40.0-70.0); PLATELET COUNT (AUTO) 185 K/uL (150-450); RED BLOOD CELL COUNT(AUTO) 4.11 MIL/uL (4.50-5.90); RED CELL DISTRIBUTION WIDTH 12.3 % (11.5-14.5)
[2019-10-14 21:11] LABS: ANION GAP 8 mmol/L (8-16); CALCIUM, TOTAL 8.4 mg/dL (8.8-10.5); CARBON DIOXIDE 29 mmol/L (22-29); CHLORIDE 102 mmol/L (98-107); CREATININE 0.92 mg/dL (0.60-1.30); GLOMERULAR FILTR. RATE CALC > 60 mL/min (>60); GLUCOSE,RANDOM 105 mg/dL (70-110); POTASSIUM 3.9 mmol/L (3.5-5.1); SODIUM SERUM 139 mmol/L (136-145); UREA NITROGEN, BLOOD 17 mg/dL (7-18)
[2019-10-14 21:16] LABS: ALANINE AMINOTRANSFERASE 69 U/L (12-78); ALBUMIN 4.2 g/dL (3.4-5.0); ALKALINE PHOSPHATASE 84 U/L (46-116); ASPARTATE AMINOTRANSFERASE 37 U/L (15-37); BILIRUBIN,TOTAL 0.2 mg/dL (0.1-1.0); TOTAL PROTEIN, SERUM 7.4 g/dL (6.4-8.2)
[2019-10-14 21:40] LABS: AMPHET/METH SCREEN,URINE NEGATIVE (NEGATIVE); BARBITURATE SCREEN, URINE NEGATIVE (NEGATIVE); BENZODIAZEPINES SCREEN,URINE NEGATIVE (NEGATIVE); CANNABINOID SCREEN,URINE NEGATIVE (NEGATIVE); COCAINE SCREEN,URINE NEGATIVE (NEGATIVE); METHADONE SCREEN, URINE NEGATIVE (NEGATIVE); OPIATE SCREEN,URINE NEGATIVE (NEGATIVE)
[2019-10-14 21:44] LABS: PHENCYCLIDINE SCREEN,URINE NEGATIVE (NEGATIVE)
[2019-10-15 02:46] LABS: APPEARANCE,URINE CLEAR (CLEAR); BILIRUBIN,URINE NEGATIVE (NEGATIVE); GLUCOSE, URINE (UA) NEGATIVE (NEGATIVE); KETONES,URINE NEGATIVE (NEGATIVE); LEUKOCYTE ESTERASE ,URINE NEGATIVE (NEGATIVE); NITRATE,URINE NEGATIVE (NEGATIVE); OCCULT BLOOD,URINE NEGATIVE (NEGATIVE); PH,URINE 7.5 (5.0-8.0); PROTEIN,URINE NEGATIVE (NEGATIVE); UROBILINOGEN,URINE 0.2 mg/dL (<=1.0)
[2019-10-15 02:52] LABS: CHOL/HDL RATIO 4.5 (4.2-7.3); CHOLESTEROL 139 mg/dL (131-200); HDL CHOLESTEROL 31 mg/dL (40-60); LDL CHOL (CALC.) 78 mg/dL (0-130); TRIGLYCERIDES 149 mg/dL (15-150)
[2019-10-15 09:20] VITALS: BP 139/87
[2019-10-15 09:36] VITALS: BP 139/87
[2019-10-15] MEDS: LevETIRAcetam 250 MG TABLET PO SCH ×2 (10:00→12:17)
[2019-10-15] MEDS ORDERED: LOPERAMIDE HCL 2 MG CAPSULE PO PRN (10:15)
[2019-10-15] MEDS ORDERED: GuaiFENesin/D-METHORPHAN [SUGAR-FREE] 200-20MG/10 ML SYRUP UDCUP PO PRN (10:15)
[2019-10-15] MEDS ORDERED: DOCUSATE SODIUM 100 MG CAPSULE PO PRN (10:15)
[2019-10-15] MEDS ORDERED: PETROLATUM,WHITE 28 GM JELLY TP PRN (10:15)
[2019-10-15] MEDS ORDERED: NICOTINE 14 MG/24 HOUR PATCH TD PRN (10:15)
[2019-10-15] MEDS ORDERED: ONDANSETRON HCL 4 MG TABLET PO PRN (10:15)
[2019-10-15] MEDS ORDERED: MAGNESIUM HYDROXIDE SUSPENSION 30 ML UDCUP PO PRN (10:15)
[2019-10-15] MEDS ORDERED: MAG HYDROX/AL HYDROX/SIMETH ES 30 ML SUSPENSION UDCUP PO PRN (10:15)
[2019-10-15] MEDS ORDERED: CloNIDine HCL 0.1 MG TABLET PO PRN (10:15)
[2019-10-15] MEDS ORDERED: ALBUTEROL SULFATE HFA 90 MCG/PUFF 8 GM INHALER IH PRN (10:15)
[2019-10-15] MEDS ORDERED: INFLUENZA VIRUS VACCINE QVS 2019-20 (3YR+)/PF 60 MCG/0.5 ML SYRINGE IM ONE (11:45)
[2019-10-15] MEDS ORDERED: PNEUMOCOCCAL VACCINE POLYVALENT 0.5 ML VIAL [PPSV23] IM ONE (11:45)
[2019-10-15] MEDS: LORazepam 2 MG TABLET PO PRN (13:18)
[2019-10-15] MEDS: HALOPERIDOL 5 MG TABLET PO PRN (13:18)
[2019-10-15 16:29] VITALS: BP 110/67
[2019-10-15] MEDS: IBUPROFEN 400 MG TABLET PO PRN (16:29)
[2019-10-15 16:30] VITALS: BP 110/67
[2019-10-15] MEDS: SIMVASTATIN 10 MG TABLET PO SCH (20:15)
[2019-10-15] MEDS: DIVALPROEX SODIUM 500 MG DR TABLET PO SCH (20:15)
[2019-10-16] MEDS: ZOLPIDEM TARTRATE 10 MG TABLET PO PRN (00:15)
[2019-10-16 00:18] VITALS: BP 132/86
[2019-10-16] MEDS: DIVALPROEX SODIUM 500 MG DR TABLET PO SCH ×2 (08:09→20:26)
[2019-10-16] MEDS: LevETIRAcetam 250 MG TABLET PO SCH ×2 (08:10→16:05)
[2019-10-16 10:22] VITALS: BP 143/78
[2019-10-16] MEDS: LORazepam 2 MG TABLET PO PRN ×2 (12:00→21:22)
[2019-10-16 17:39] VITALS: BP 141/73
[2019-10-16] MEDS: SIMVASTATIN 10 MG TABLET PO SCH (20:27)
[2019-10-16] MEDS: HALOPERIDOL 5 MG TABLET PO PRN (21:22)
[2019-10-17] MEDS: DIVALPROEX SODIUM 500 MG DR TABLET PO SCH ×2 (08:22→20:25)
[2019-10-17] MEDS: LevETIRAcetam 250 MG TABLET PO SCH ×2 (08:22→16:05)
[2019-10-17 08:30] VITALS: BP 118/84
[2019-10-17 09:14] VITALS: BP 122/74
[2019-10-17] MEDS: IBUPROFEN 400 MG TABLET PO PRN (09:14)
[2019-10-17] MEDS: LORazepam 2 MG TABLET PO PRN (16:39)
[2019-10-17 17:00] VITALS: BP 139/74
[2019-10-17] MEDS: ACETAMINOPHEN 325 MG TABLET PO PRN (18:16)
[2019-10-17] MEDS ORDERED: ONDANSETRON HCL 4 MG/2 ML VIAL IM ONE (19:30)
[2019-10-17] MEDS: SIMVASTATIN 10 MG TABLET PO SCH (20:25)
[2019-10-18] MEDS: ZOLPIDEM TARTRATE 10 MG TABLET PO PRN (01:26)
[2019-10-18] MEDS: LevETIRAcetam 250 MG TABLET PO SCH (08:25)
[2019-10-18] MEDS: DIVALPROEX SODIUM 500 MG DR TABLET PO SCH (08:25)
[2019-10-18 08:27] VITALS: BP 124/83
[2019-10-18] MEDS: ACETAMINOPHEN 325 MG TABLET PO PRN (08:27)
[2019-10-18 08:30] VITALS: BP 124/84
[2019-10-18] MEDS ORDERED: OMEPRAZOLE 20 MG CAPSULE PO SCH (09:00)
[2019-10-18] MEDS ORDERED: OMEP20 PO (13:44)
== END 2019-10-18 14:07 | disposition home or self-care (01) | DRG 885 ==
LOC: EMS 19:50 → 3EC 10-15 08:29 → 3EI 10-16 11:20
PROVIDERS: ADMIT Psychiatry & Neurology Child & Adolescent Psychiatry; ATTEND Psychiatry & Neurology Child & Adolescent Psychiatry
DX: F20.9 Schizophrenia, unspecified (principal); R45.851 Suicidal ideations; F32.9 Major depressive disorder, single episode, unspecified; E78.5 Hyperlipidemia, unspecified; G40.909 Epilepsy, unspecified, not intractable, without status epilepticus; G89.29 Other chronic pain; J45.909 Unspecified asthma, uncomplicated; K74.60 Unspecified cirrhosis of liver; M54.9 Dorsalgia, unspecified; Q90.9 Down syndrome, unspecified; Z90.49 Acquired absence of other specified parts of digestive tract; Z88.8 Allergy status to other drugs, medicaments and biological substances; Z79.899 Other long term (current) drug therapy; Z28.21 Immunization not carried out because of patient refusal
CPT/HCPCS: 87081; G0480; J2405; Q0162

== ENCOUNTER 2019-11-09 00:41 | Inpatient (IN) | payer MEDICAID, OTHER ==
[~2019-11-09] VITALS: Ht 170.2 cm; Wt 97.7 kg
[~2019-11-09 00:41] MED LIST changes: +OMEP20 PO
[2019-11-09] MEDS ORDERED: TRAZ-252 PO (01:36)
[2019-11-09] MEDS ORDERED: QUET25TA PO (01:36)
[2019-11-09 02:11] LABS: BASOPHILS % (AUTO) 0.4 % (0.0-2.0); EOSINOPHILS % (AUTO) 2.4 % (1.0-6.0); HEMATOCRIT 36.7 % (41-53); HEMOGLOBIN 12.6 g/dL (13.5-17.5); LYMPHOCYTES # (AUTO) 1.5 K/uL (1.0-4.8); LYMPHOCYTES % (AUTO) 26.7 % (22.0-44.0); MEAN CORPUSCULAR HEMOGLOBIN 31.6 pg (26.0-34.0); MEAN CORPUSCULAR HGB CONC 34.3 G/dL (31.0-37.0); MEAN CORPUSCULAR VOLUME 92 fL (80-100); MONOCYTES # (AUTO) 0.6 K/uL (0.1-1.0); MONOCYTES % (AUTO) 11.3 % (2.0-9.0); NEUTROPHILS # (AUTO) 3.3 K/uL (1.8-7.7); NEUTROPHILS % (AUTO) 59.2 % (40.0-70.0); PLATELET COUNT (AUTO) 200 K/uL (150-450); RED BLOOD CELL COUNT(AUTO) 3.99 MIL/uL (4.50-5.90); RED CELL DISTRIBUTION WIDTH 12.9 % (11.5-14.5)
[2019-11-09 02:18] LABS: ANION GAP 9 mmol/L (8-16); CALCIUM, TOTAL 8.5 mg/dL (8.8-10.5); CARBON DIOXIDE 31 mmol/L (22-29); CHLORIDE 99 mmol/L (98-107); CREATININE 0.95 mg/dL (0.60-1.30); GLOMERULAR FILTR. RATE CALC > 60 mL/min (>60); GLUCOSE,RANDOM 121 mg/dL (70-110); POTASSIUM 3.9 mmol/L (3.5-5.1); SODIUM SERUM 139 mmol/L (136-145); UREA NITROGEN, BLOOD 9 mg/dL (7-18)
[2019-11-09 02:21] LABS: ALANINE AMINOTRANSFERASE 66 U/L (12-78); ALBUMIN 4.1 g/dL (3.4-5.0); ALKALINE PHOSPHATASE 85 U/L (46-116); ASPARTATE AMINOTRANSFERASE 55 U/L (15-37); BILIRUBIN,TOTAL 0.1 mg/dL (0.1-1.0); TOTAL PROTEIN, SERUM 7.9 g/dL (6.4-8.2); VALPROIC ACID 36 mcg/mL (50-100)
[2019-11-09] MEDS ORDERED: HALOPERIDOL 5 MG TABLET PO PRN (04:00)
[2019-11-09] MEDS ORDERED: ZOLPIDEM TARTRATE 10 MG TABLET PO PRN (04:00)
[2019-11-09] MEDS ORDERED: LORazepam 2 MG TABLET PO PRN (04:00)
[2019-11-09 04:21] LABS: AMPHET/METH SCREEN,URINE NEGATIVE (NEGATIVE); BARBITURATE SCREEN, URINE NEGATIVE (NEGATIVE); BENZODIAZEPINES SCREEN,URINE NEGATIVE (NEGATIVE); CANNABINOID SCREEN,URINE NEGATIVE (NEGATIVE); COCAINE SCREEN,URINE NEGATIVE (NEGATIVE); METHADONE SCREEN, URINE NEGATIVE (NEGATIVE); OPIATE SCREEN,URINE NEGATIVE (NEGATIVE); PHENCYCLIDINE SCREEN,URINE NEGATIVE (NEGATIVE)
[2019-11-09] MEDS ORDERED: GuaiFENesin/D-METHORPHAN [SUGAR-FREE] 200-20MG/10 ML SYRUP UDCUP PO PRN (09:30)
[2019-11-09] MEDS ORDERED: ALBUTEROL SULFATE HFA 90 MCG/PUFF 8 GM INHALER IH PRN (09:30)
[2019-11-09] MEDS ORDERED: MAGNESIUM HYDROXIDE SUSPENSION 30 ML UDCUP PO PRN (09:30)
[2019-11-09] MEDS ORDERED: MAG HYDROX/AL HYDROX/SIMETH ES 30 ML SUSPENSION UDCUP PO PRN (09:30)
[2019-11-09] MEDS ORDERED: CloNIDine HCL 0.1 MG TABLET PO PRN (09:30)
[2019-11-09] MEDS ORDERED: ONDANSETRON HCL 4 MG TABLET PO PRN (09:30)
[2019-11-09] MEDS ORDERED: DOCUSATE SODIUM 100 MG CAPSULE PO PRN (09:30)
[2019-11-09] MEDS ORDERED: NICOTINE 14 MG/24 HOUR PATCH TD PRN (09:30)
[2019-11-09] MEDS ORDERED: ACETAMINOPHEN 325 MG TABLET PO PRN (09:30)
[2019-11-09] MEDS ORDERED: PETROLATUM,WHITE 28 GM JELLY TP PRN (09:30)
[2019-11-09] MEDS ORDERED: LOPERAMIDE HCL 2 MG CAPSULE PO PRN (09:30)
[2019-11-09 11:00] VITALS: BP 135/87
[2019-11-09] MEDS ORDERED: PALIPERIDONE PALMITATE 234 MG/1.5 ML SYRINGE IM SCH (12:00)
[2019-11-09] MEDS: DIVALPROEX SODIUM 500 MG DR TABLET PO SCH ×2 (12:45→17:18)
[2019-11-09] MEDS ORDERED: RisperiDONE 1 MG TABLET PO SCH (13:00)
[2019-11-09 17:35] VITALS: BP 117/93
[2019-11-09] MEDS: IBUPROFEN 400 MG TABLET PO PRN ×2 (18:27→18:47)
[2019-11-09] MEDS: CIPROFLOXACIN HCL 0.3% 2.5 ML OPHTHALMIC SOLUTION OU SCH (19:30)
[2019-11-09] MEDS: SIMVASTATIN 10 MG TABLET PO SCH (21:00)
[2019-11-10] MEDS ORDERED: PNEUMOCOCCAL VACCINE POLYVALENT 0.5 ML VIAL [PPSV23] IM ONE (02:45)
[2019-11-10 04:10] VITALS: BP 138/80
[2019-11-10] MEDS: CIPROFLOXACIN HCL 0.3% 2.5 ML OPHTHALMIC SOLUTION OU SCH ×4 (09:00→17:38)
[2019-11-10] MEDS: OMEPRAZOLE 20 MG CAPSULE PO SCH (09:04)
[2019-11-10] MEDS: DIVALPROEX SODIUM 500 MG DR TABLET PO SCH ×3 (09:04→17:04)
[2019-11-10 10:12] VITALS: BP 119/78
[2019-11-10 16:25] VITALS: BP 138/78
[2019-11-10] MEDS: SIMVASTATIN 10 MG TABLET PO SCH (20:06)
[2019-11-10] MEDS: QUEtiapine FUMARATE 300 MG TABLET PO SCH (20:06)
[2019-11-10] MEDS: TraZODone HCL 100 MG TABLET PO SCH (20:06)
[2019-11-11 05:31] VITALS: BP 132/80
[2019-11-11] MEDS: DIVALPROEX SODIUM 500 MG DR TABLET PO SCH ×3 (08:29→16:07)
[2019-11-11] MEDS: OMEPRAZOLE 20 MG CAPSULE PO SCH (08:29)
[2019-11-11 08:34] VITALS: BP 131/73
[2019-11-11] MEDS: CIPROFLOXACIN HCL 0.3% 2.5 ML OPHTHALMIC SOLUTION OU SCH ×3 (09:00→16:07)
[2019-11-11 14:21] VITALS: BP 118/74
[2019-11-11] MEDS: IBUPROFEN 400 MG TABLET PO PRN (14:21)
[2019-11-11 16:00] VITALS: BP 120/78
[2019-11-11] MEDS: MUPIROCIN CALCIUM 2% 22 GM OINTMENT NASAL SCH (16:07)
[2019-11-11] MEDS ORDERED: BENZOCAINE 10% 7 GM GEL TP PRN (18:15)
[2019-11-11] MEDS: SIMVASTATIN 10 MG TABLET PO SCH (20:04)
[2019-11-11] MEDS: QUEtiapine FUMARATE 300 MG TABLET PO SCH (20:04)
[2019-11-11] MEDS: TraZODone HCL 100 MG TABLET PO SCH (20:04)
[2019-11-12 08:30] VITALS: BP 124/80
[2019-11-12] MEDS: DIVALPROEX SODIUM 500 MG DR TABLET PO SCH ×2 (08:47→12:58)
[2019-11-12] MEDS: OMEPRAZOLE 20 MG CAPSULE PO SCH (08:47)
[2019-11-12] MEDS: MUPIROCIN CALCIUM 2% 22 GM OINTMENT NASAL SCH (08:58)
[2019-11-12] MEDS: CIPROFLOXACIN HCL 0.3% 2.5 ML OPHTHALMIC SOLUTION OU SCH ×2 (09:06→12:58)
[2019-11-12 17:10] VITALS: BP 149/77
[2019-11-12] MEDS ORDERED: TRAZ-186 PO (17:35)
[2019-11-12] MEDS ORDERED: QUET300T2 PO (17:35)
== END 2019-11-12 17:50 | disposition home or self-care (01) | DRG 750 ==
LOC: EMS 00:44 → B2S 04:30
PROVIDERS: ADMIT Psychiatry & Neurology Child & Adolescent Psychiatry; ATTEND Psychiatry & Neurology Child & Adolescent Psychiatry
DX: F25.1 Schizoaffective disorder, depressive type (principal); G40.909 Epilepsy, unspecified, not intractable, without status epilepticus; R45.851 Suicidal ideations; E78.5 Hyperlipidemia, unspecified; F84.0 Autistic disorder; J45.909 Unspecified asthma, uncomplicated; K76.9 Liver disease, unspecified; G89.29 Other chronic pain; Z79.899 Other long term (current) drug therapy
CPT/HCPCS: 87081; G0480; J3535

== ENCOUNTER 2019-12-06 17:53 | Inpatient (IN) | payer MEDICAID, OTHER ==
[~2019-12-06] VITALS: Ht 162.6 cm; Wt 93.8 kg
[~2019-12-06 17:53] MED LIST changes: -LEVE250T55 PO; +QUET300T2 PO; +TRAZ-186 PO
[2019-12-06] MEDS ORDERED: LEVE250T55 PO (18:41)
[2019-12-06] MEDS ORDERED: DIPH25CA85 PO (18:41)
[2019-12-06 19:20] LABS: BASOPHILS % (AUTO) 0.5 % (0.0-2.0); EOSINOPHILS % (AUTO) 12.1 % (1.0-6.0); HEMOGLOBIN 13.3 g/dL (13.5-17.5); LYMPHOCYTES # (AUTO) 1.7 K/uL (1.0-4.8); MEAN CORPUSCULAR HEMOGLOBIN 30.8 pg (26.0-34.0); MEAN CORPUSCULAR VOLUME 91 fL (80-100); MONOCYTES # (AUTO) 0.6 K/uL (0.1-1.0); MONOCYTES % (AUTO) 8.4 % (2.0-9.0); NEUTROPHILS # (AUTO) 3.7 K/uL (1.8-7.7); PLATELET COUNT (AUTO) 201 K/uL (150-450); RED BLOOD CELL COUNT(AUTO) 4.31 MIL/uL (4.50-5.90); RED CELL DISTRIBUTION WIDTH 12.5 % (11.5-14.5)
[2019-12-06 19:34] LABS: AMPHET/METH SCREEN,URINE NEGATIVE (NEGATIVE); BARBITURATE SCREEN, URINE NEGATIVE (NEGATIVE); BENZODIAZEPINES SCREEN,URINE NEGATIVE (NEGATIVE); CANNABINOID SCREEN,URINE NEGATIVE (NEGATIVE); COCAINE SCREEN,URINE NEGATIVE (NEGATIVE); METHADONE SCREEN, URINE NEGATIVE (NEGATIVE)
[2019-12-06 19:36] LABS: ANION GAP 7 mmol/L (8-16); CALCIUM, TOTAL 8.6 mg/dL (8.8-10.5); CARBON DIOXIDE 30 mmol/L (22-29); CHLORIDE 101 mmol/L (98-107); CREATININE 0.96 mg/dL (0.60-1.30); GLOMERULAR FILTR. RATE CALC > 60 mL/min (>60); GLUCOSE,RANDOM 107 mg/dL (70-110); POTASSIUM 3.9 mmol/L (3.5-5.1); SODIUM SERUM 138 mmol/L (136-145); UREA NITROGEN, BLOOD 9 mg/dL (7-18)
[2019-12-06 19:41] LABS: ALANINE AMINOTRANSFERASE 147 U/L (12-78); ALBUMIN 4.1 g/dL (3.4-5.0); ALKALINE PHOSPHATASE 96 U/L (46-116); ASPARTATE AMINOTRANSFERASE 94 U/L (15-37); BILIRUBIN,TOTAL 0.2 mg/dL (0.1-1.0); TOTAL PROTEIN, SERUM 7.7 g/dL (6.4-8.2)
[2019-12-06 19:42] LABS: OPIATE SCREEN,URINE NEGATIVE (NEGATIVE)
[2019-12-06 19:43] LABS: PHENCYCLIDINE SCREEN,URINE NEGATIVE (NEGATIVE)
[2019-12-06] MEDS ORDERED: QUEtiapine FUMARATE 100 MG TABLET PO PRN (20:45)
[2019-12-07 00:49] VITALS: BP 125/84
[2019-12-07] MEDS ORDERED: PNEUMOCOCCAL VACCINE POLYVALENT 0.5 ML VIAL [PPSV23] IM ONE (01:00)
[2019-12-07 08:06] VITALS: BP 124/61
[2019-12-07 08:37] LABS: CHOL/HDL RATIO 4.2 (4.2-7.3)
[2019-12-07] MEDS ORDERED: QUET200T PO (11:29)
[2019-12-07] MEDS ORDERED: LEVE500T53 PO (11:29)
[2019-12-07] MEDS ORDERED: GuaiFENesin/D-METHORPHAN [SUGAR-FREE] 200-20MG/10 ML SYRUP UDCUP PO PRN (11:30)
[2019-12-07] MEDS ORDERED: CloNIDine HCL 0.1 MG TABLET PO PRN (11:30)
[2019-12-07] MEDS ORDERED: MAGNESIUM HYDROXIDE SUSPENSION 30 ML UDCUP PO PRN (11:30)
[2019-12-07] MEDS ORDERED: ALBUTEROL SULFATE HFA 90 MCG/PUFF 8 GM INHALER IH PRN (11:30)
[2019-12-07] MEDS ORDERED: NICOTINE 14 MG/24 HOUR PATCH TD PRN (11:30)
[2019-12-07] MEDS ORDERED: MAG HYDROX/AL HYDROX/SIMETH ES 30 ML SUSPENSION UDCUP PO PRN (11:30)
[2019-12-07] MEDS ORDERED: ONDANSETRON HCL 4 MG TABLET PO PRN (11:30)
[2019-12-07] MEDS ORDERED: PETROLATUM,WHITE 28 GM JELLY TP PRN (11:30)
[2019-12-07] MEDS ORDERED: ACETAMINOPHEN 325 MG TABLET PO PRN (11:30)
[2019-12-07] MEDS ORDERED: LOPERAMIDE HCL 2 MG CAPSULE PO PRN (11:30)
[2019-12-07] MEDS ORDERED: DOCUSATE SODIUM 100 MG CAPSULE PO PRN (11:30)
[2019-12-07 16:05] VITALS: BP 128/78
[2019-12-07 17:50] VITALS: BP 128/76
[2019-12-07] MEDS: LevETIRAcetam 500 MG TABLET PO SCH (20:02)
[2019-12-07] MEDS: QUEtiapine FUMARATE 200 MG TABLET PO SCH (20:02)
[2019-12-07] MEDS: SIMVASTATIN 10 MG TABLET PO SCH (20:02)
[2019-12-07] MEDS: TraZODone HCL 100 MG TABLET PO SCH (20:02)
[2019-12-08 05:58] VITALS: BP 132/79
[2019-12-08 08:22] VITALS: BP 130/60
[2019-12-08] MEDS: MUPIROCIN CALCIUM 2% 22 GM OINTMENT NASAL SCH (16:03)
[2019-12-08 16:08] VITALS: BP 141/98
[2019-12-08 17:43] VITALS: BP 141/84
[2019-12-08 20:02] VITALS: BP 132/78
[2019-12-08] MEDS: QUEtiapine FUMARATE 200 MG TABLET PO SCH (20:02)
[2019-12-08] MEDS: SIMVASTATIN 10 MG TABLET PO SCH (20:02)
[2019-12-08] MEDS: LevETIRAcetam 500 MG TABLET PO SCH (20:02)
[2019-12-08] MEDS: IBUPROFEN 400 MG TABLET PO PRN (20:02)
[2019-12-08] MEDS: TraZODone HCL 100 MG TABLET PO SCH (20:02)
[2019-12-09 09:14] VITALS: BP 105/56
[2019-12-09] MEDS: MUPIROCIN CALCIUM 2% 22 GM OINTMENT NASAL SCH ×2 (09:14→16:24)
[2019-12-09] MEDS ORDERED: HYPROMELLOSE 0.5% 15 ML OPHTHALMIC SOLUTION OU PRN (16:00)
[2019-12-09 16:28] VITALS: BP 133/69
[2019-12-09 20:01] VITALS: BP 126/72
[2019-12-09] MEDS: IBUPROFEN 400 MG TABLET PO PRN (20:01)
[2019-12-09] MEDS: SIMVASTATIN 10 MG TABLET PO SCH (20:01)
[2019-12-09] MEDS: TraZODone HCL 100 MG TABLET PO SCH (20:01)
[2019-12-09] MEDS: QUEtiapine FUMARATE 200 MG TABLET PO SCH (20:01)
[2019-12-09] MEDS: LevETIRAcetam 500 MG TABLET PO SCH (20:01)
[2019-12-10] MEDS: MUPIROCIN CALCIUM 2% 22 GM OINTMENT NASAL SCH (08:54)
[2019-12-10 09:06] VITALS: BP 108/68
[2019-12-10 10:04] VITALS: BP 126/69
[2019-12-10] MEDS: IBUPROFEN 400 MG TABLET PO PRN (10:04)
== END 2019-12-10 14:20 | disposition home or self-care (01) | DRG 750 ==
LOC: EMS 17:55 → B2S 20:38
PROVIDERS: ATTEND Psychiatry & Neurology Child & Adolescent Psychiatry
DX: F25.1 Schizoaffective disorder, depressive type (principal); R45.851 Suicidal ideations; K74.60 Unspecified cirrhosis of liver; G40.909 Epilepsy, unspecified, not intractable, without status epilepticus; F32.9 Major depressive disorder, single episode, unspecified; E78.5 Hyperlipidemia, unspecified; K21.9 Gastro-esophageal reflux disease without esophagitis; F19.10 Other psychoactive substance abuse, uncomplicated; I10 Essential (primary) hypertension; Q90.9 Down syndrome, unspecified; J45.909 Unspecified asthma, uncomplicated; M54.9 Dorsalgia, unspecified; K76.9 Liver disease, unspecified; Z28.21 Immunization not carried out because of patient refusal; Z91.5 Personal history of self-harm; Z88.8 Allergy status to other drugs, medicaments and biological substances; F84.0 Autistic disorder
CPT/HCPCS: 87081; G0480

== ENCOUNTER 2019-12-24 18:06 | Inpatient (IN) | payer MEDICAID, OTHER ==
[~2019-12-24] VITALS: Ht 175.3 cm; Wt 93.3 kg
[~2019-12-24 18:06] MED LIST changes: -DIVA-78 PO; +LEVE500T53 PO; -OMEP20 PO; +QUET200T PO; -QUET300T2 PO
[2019-12-24] MEDS ORDERED: ACETAMINOPHEN 500 MG TABLET PO ONE (19:00)
[2019-12-24 19:11] LABS: BASOPHILS % (AUTO) 1.8 % (0.0-2.0); EOSINOPHILS % (AUTO) 2.4 % (1.0-6.0); HEMATOCRIT 38.3 % (41-53); HEMOGLOBIN 13.3 g/dL (13.5-17.5); LYMPHOCYTES # (AUTO) 1.6 K/uL (1.0-4.8); LYMPHOCYTES % (AUTO) 31.1 % (22.0-44.0); MEAN CORPUSCULAR HEMOGLOBIN 31.4 pg (26.0-34.0); MEAN CORPUSCULAR HGB CONC 34.7 G/dL (31.0-37.0); MEAN CORPUSCULAR VOLUME 91 fL (80-100); MONOCYTES # (AUTO) 0.4 K/uL (0.1-1.0); MONOCYTES % (AUTO) 7.6 % (2.0-9.0); NEUTROPHILS # (AUTO) 2.9 K/uL (1.8-7.7); NEUTROPHILS % (AUTO) 57.1 % (40.0-70.0); PLATELET COUNT (AUTO) 236 K/uL (150-450); RED BLOOD CELL COUNT(AUTO) 4.23 MIL/uL (4.50-5.90); RED CELL DISTRIBUTION WIDTH 12.7 % (11.5-14.5)
[2019-12-24 19:18] LABS: AMPHET/METH SCREEN,URINE NEGATIVE (NEGATIVE); BARBITURATE SCREEN, URINE NEGATIVE (NEGATIVE); BENZODIAZEPINES SCREEN,URINE NEGATIVE (NEGATIVE); CANNABINOID SCREEN,URINE NEGATIVE (NEGATIVE); COCAINE SCREEN,URINE NEGATIVE (NEGATIVE); METHADONE SCREEN, URINE NEGATIVE (NEGATIVE); OPIATE SCREEN,URINE NEGATIVE (NEGATIVE)
[2019-12-24 19:19] LABS: PHENCYCLIDINE SCREEN,URINE NEGATIVE (NEGATIVE)
[2019-12-24 19:26] LABS: ANION GAP 13 mmol/L (8-16); CALCIUM, TOTAL 8.9 mg/dL (8.8-10.5); CARBON DIOXIDE 25 mmol/L (22-29); CHLORIDE 101 mmol/L (98-107); GLOMERULAR FILTR. RATE CALC > 60 mL/min (>60); GLUCOSE,RANDOM 102 mg/dL (70-110); POTASSIUM 3.8 mmol/L (3.5-5.1); SODIUM SERUM 139 mmol/L (136-145); UREA NITROGEN, BLOOD 11 mg/dL (7-18)
[2019-12-24 19:39] LABS: ALANINE AMINOTRANSFERASE 138 U/L (12-78); ALBUMIN 4.4 g/dL (3.4-5.0); ALKALINE PHOSPHATASE 119 U/L (46-116); ASPARTATE AMINOTRANSFERASE 79 U/L (15-37); BILIRUBIN,TOTAL 0.2 mg/dL (0.1-1.0); TOTAL PROTEIN, SERUM 8.3 g/dL (6.4-8.2)
[2019-12-24] MEDS ORDERED: GABAPENTIN 300 MG CAPSULE PO PRN (22:15)
[2019-12-24] MEDS ORDERED: TUBERCULIN, PURIFIED PROTEIN DERIVATIVE 5 TU/0.1 ML SYRINGE ID ONE (22:15)
[2019-12-24] MEDS ORDERED: LOPERAMIDE HCL 2 MG CAPSULE PO PRN (22:15)
[2019-12-24] MEDS ORDERED: ACETAMINOPHEN 325 MG TABLET PO PRN (22:15)
[2019-12-24] MEDS ORDERED: HydrOXYzine PAMOATE 50 MG CAPSULE PO PRN (22:15)
[2019-12-24] MEDS ORDERED: ESZOPICLONE 3 MG TABLET PO PRN (22:15)
[2019-12-24] MEDS ORDERED: PALIPERIDONE 1.5 MG ER TABLET PO PRN (22:15)
[2019-12-24] MEDS ORDERED: MAG HYDROX/AL HYDROX/SIMETH ES 30 ML SUSPENSION UDCUP PO PRN (22:15)
[2019-12-24] MEDS ORDERED: GuaiFENesin/D-METHORPHAN [SUGAR-FREE] 200-20MG/10 ML SYRUP UDCUP PO PRN (22:15)
[2019-12-24] MEDS ORDERED: MAGNESIUM HYDROXIDE SUSPENSION 30 ML UDCUP PO PRN (22:15)
[2019-12-25] MEDS ORDERED: PNEUMOCOCCAL VACCINE POLYVALENT 0.5 ML VIAL [PPSV23] IM ONE (01:00)
[2019-12-25 01:45] VITALS: BP 118/77
[2019-12-25 08:36] LABS: CHOL/HDL RATIO 5.2 (4.2-7.3); FREE T4 (FREE THYROXINE) 0.99 ng/dL (0.76-1.46); THYROID STIMULATING HORMONE 4.86 uIU/mL (0.36-3.74)
[2019-12-25] MEDS ORDERED: PALIPERIDONE PALMITATE 234 MG/1.5 ML SYRINGE IM ONE (09:00)
[2019-12-25] MEDS: FOLIC ACID 1 MG TABLET PO SCH (09:38)
[2019-12-25] MEDS: MULTIVITAMINS WITH MINERALS, THERAPEUTIC TABLET PO SCH (09:38)
[2019-12-25] MEDS: THIAMINE 100 MG TABLET PO SCH ×2 (09:39→16:34)
[2019-12-25] MEDS: NALTREXONE HCL 50 MG TABLET PO SCH (09:39)
[2019-12-25] MEDS: LevETIRAcetam 500 MG TABLET PO SCH ×2 (09:40→16:34)
[2019-12-25 16:15] VITALS: BP 114/68
[2019-12-25] MEDS: DIVALPROEX SODIUM 500 MG ER TABLET PO SCH (20:47)
[2019-12-25] MEDS: PALIPERIDONE 3 MG ER TABLET PO SCH (20:47)
[2019-12-26 06:56] VITALS: BP 125/88
[2019-12-26] MEDS: NALTREXONE HCL 50 MG TABLET PO SCH (08:09)
[2019-12-26] MEDS: MULTIVITAMINS WITH MINERALS, THERAPEUTIC TABLET PO SCH (08:09)
[2019-12-26] MEDS: FOLIC ACID 1 MG TABLET PO SCH (08:09)
[2019-12-26] MEDS: LevETIRAcetam 500 MG TABLET PO SCH ×2 (08:10→16:33)
[2019-12-26] MEDS: THIAMINE 100 MG TABLET PO SCH ×2 (08:10→16:32)
[2019-12-26 13:35] VITALS: BP 120/80
[2019-12-26 16:00] VITALS: BP 131/80
[2019-12-26] MEDS: PROMETHAZINE HCL 25 MG TABLET PO PRN (17:45)
[2019-12-26] MEDS: PALIPERIDONE 3 MG ER TABLET PO SCH (20:44)
[2019-12-26] MEDS: DIVALPROEX SODIUM 500 MG ER TABLET PO SCH (20:44)
[2019-12-27 08:12] VITALS: BP 118/89
[2019-12-27] MEDS: MULTIVITAMINS WITH MINERALS, THERAPEUTIC TABLET PO SCH (08:28)
[2019-12-27] MEDS: LevETIRAcetam 500 MG TABLET PO SCH (08:28)
[2019-12-27] MEDS: NALTREXONE HCL 50 MG TABLET PO SCH (08:28)
[2019-12-27] MEDS: THIAMINE 100 MG TABLET PO SCH (08:28)
[2019-12-27] MEDS: FOLIC ACID 1 MG TABLET PO SCH (08:28)
[2019-12-27] MEDS ORDERED: MUPIROCIN CALCIUM 2% 15 GM CREAM TP SCH (09:00)
[2019-12-27] MEDS ORDERED: MUPIROCIN CALCIUM 2% 22 GM OINTMENT NASAL SCH (09:00)
[2019-12-27] MEDS: PROMETHAZINE HCL 25 MG TABLET PO PRN (09:30)
[2019-12-27] MEDS ORDERED: NALT50TA6 PO (10:21)
[2019-12-27] MEDS ORDERED: PALI3TAB14 PO (10:21)
[2019-12-27] MEDS ORDERED: MUPI1OIN5 NASAL (10:21)
[2019-12-27] MEDS ORDERED: DIVA500T52 PO (10:21)
[2019-12-27] MEDS ORDERED: MUPI15CR12 TP (10:21)
[2019-12-27] MEDS ORDERED: LEVE250T55 PO (10:21)
[2019-12-29] MEDS ORDERED: PALIPERIDONE PALMITATE 156 MG/ML SYRINGE IM ONE (09:00)
== END 2019-12-27 12:05 | disposition home or self-care (01) | DRG 750 ==
LOC: EMS 18:06 → B3A 22:06 → B2S 22:59
PROVIDERS: ADMIT Psychiatry & Neurology Child & Adolescent Psychiatry; ATTEND Psychiatry & Neurology Child & Adolescent Psychiatry
DX: F25.9 Schizoaffective disorder, unspecified (principal); I47.1 Supraventricular tachycardia; R45.851 Suicidal ideations; K74.60 Unspecified cirrhosis of liver; G40.909 Epilepsy, unspecified, not intractable, without status epilepticus; F12.10 Cannabis abuse, uncomplicated; F15.10 Other stimulant abuse, uncomplicated; Z88.8 Allergy status to other drugs, medicaments and biological substances; F17.210 Nicotine dependence, cigarettes, uncomplicated; K21.9 Gastro-esophageal reflux disease without esophagitis; M25.561 Pain in right knee; Z90.49 Acquired absence of other specified parts of digestive tract; Z91.19 Patient's noncompliance with other medical treatment and regimen; F41.9 Anxiety disorder, unspecified; J45.909 Unspecified asthma, uncomplicated; I10 Essential (primary) hypertension; E78.5 Hyperlipidemia, unspecified; F19.10 Other psychoactive substance abuse, uncomplicated; R74.0 Nonspecific elevation of levels of transaminase and lactic acid dehydrogenase [LDH]; Q90.9 Down syndrome, unspecified; M54.9 Dorsalgia, unspecified; K76.9 Liver disease, unspecified; S60.221A Contusion of right hand, initial encounter; X58.XXXA Exposure to other specified factors, initial encounter; Y93.89 Activity, other specified; Y92.89 Other specified places as the place of occurrence of the external cause; Y99.8 Other external cause status; S83.512A Sprain of anterior cruciate ligament of left knee, initial encounter; W22.01XA Walked into wall, initial encounter; Z59.0 Homelessness; Z28.21 Immunization not carried out because of patient refusal
CPT/HCPCS: 84439; 84443; 86592; 87081; G0480

== ENCOUNTER 2019-12-29 19:26 | Emergency (ER) | payer MEDICAID, OTHER ==
[~2019-12-29] VITALS: Ht 167.6 cm; Wt 79.5 kg
[~2019-12-29 19:26] MED LIST changes: +DIVA500T52 PO; +LEVE250T55 PO; +MUPI15CR12 TP; +MUPI1OIN5 NASAL; +NALT50TA6 PO; +PALI3TAB14 PO
[2019-12-29 19:32] VITALS: BP 128/73
== END 2019-12-29 19:35 | disposition left against medical advice (07) ==
LOC: EMS 19:27
DX: M25.561 Pain in right knee (principal); Z53.21 Procedure and treatment not carried out due to patient leaving prior to being seen by health care provider

== ENCOUNTER 2020-01-11 20:15 | Inpatient (IN) | payer MEDICAID, OTHER ==
[~2020-01-11] VITALS: Ht 172.7 cm; Wt 92.3 kg
[~2020-01-11 20:15] MED LIST changes: +DIVA-80 PO; -DIVA500T52 PO; -LEVE500T53 PO; -MUPI15CR12 TP; -QUET200T PO; -SIMV5TAB59 PO; -TRAZ-186 PO
[2020-01-12 04:57] VITALS: BP 137/86
[2020-01-12] MEDS ORDERED: LOPERAMIDE HCL 2 MG CAPSULE PO PRN (08:15)
[2020-01-12] MEDS ORDERED: MAG HYDROX/AL HYDROX/SIMETH ES 30 ML SUSPENSION UDCUP PO PRN (08:15)
[2020-01-12] MEDS ORDERED: GuaiFENesin/D-METHORPHAN [SUGAR-FREE] 200-20MG/10 ML SYRUP UDCUP PO PRN (08:15)
[2020-01-12] MEDS ORDERED: ALBUTEROL SULFATE HFA 90 MCG/PUFF 8 GM INHALER IH PRN (08:15)
[2020-01-12] MEDS ORDERED: PETROLATUM,WHITE 28 GM JELLY TP PRN (08:15)
[2020-01-12] MEDS ORDERED: MAGNESIUM HYDROXIDE SUSPENSION 30 ML UDCUP PO PRN (08:15)
[2020-01-12] MEDS ORDERED: NICOTINE 14 MG/24 HOUR PATCH TD PRN (08:15)
[2020-01-12] MEDS ORDERED: ACETAMINOPHEN 325 MG TABLET PO PRN (08:15)
[2020-01-12] MEDS ORDERED: CloNIDine HCL 0.1 MG TABLET PO PRN (08:15)
[2020-01-12] MEDS ORDERED: DOCUSATE SODIUM 100 MG CAPSULE PO PRN (08:15)
[2020-01-12] MEDS: LevETIRAcetam 500 MG TABLET PO SCH ×4 (09:00→16:02)
[2020-01-12 16:00] VITALS: BP 119/75
[2020-01-12] MEDS: PALIPERIDONE 3 MG ER TABLET PO SCH (20:09)
[2020-01-12] MEDS: DIVALPROEX SODIUM 500 MG ER TABLET PO SCH (20:09)
[2020-01-13] MEDS: LevETIRAcetam 500 MG TABLET PO SCH ×2 (10:22→16:11)
[2020-01-13] MEDS: NALTREXONE HCL 50 MG TABLET PO SCH (10:23)
[2020-01-13] MEDS: IBUPROFEN 400 MG TABLET PO PRN ×2 (11:07→20:34)
[2020-01-13 16:00] VITALS: BP 139/67
[2020-01-13] MEDS: MUPIROCIN CALCIUM 2% 22 GM OINTMENT NASAL SCH (16:11)
[2020-01-13] MEDS: ONDANSETRON HCL 4 MG TABLET PO PRN (18:31)
[2020-01-13] MEDS: PALIPERIDONE 3 MG ER TABLET PO SCH (20:07)
[2020-01-13] MEDS: DIVALPROEX SODIUM 500 MG ER TABLET PO SCH (20:07)
[2020-01-13 20:33] VITALS: BP 136/80
[2020-01-14 08:00] VITALS: BP 126/59
[2020-01-14] MEDS: MUPIROCIN CALCIUM 2% 22 GM OINTMENT NASAL SCH (08:54)
[2020-01-14] MEDS: LevETIRAcetam 500 MG TABLET PO SCH (08:54)
[2020-01-14] MEDS: NALTREXONE HCL 50 MG TABLET PO SCH (08:54)
[2020-01-14] MEDS: ONDANSETRON HCL 4 MG TABLET PO PRN (09:40)
[2020-01-14 10:54] LABS: CHOL/HDL RATIO 7.3 (4.2-7.3)
== END 2020-01-14 16:30 | disposition home or self-care (01) | DRG 885 ==
LOC: EMS 20:19 → 3EI 01-12 04:05
PROVIDERS: ADMIT Psychiatry & Neurology Child & Adolescent Psychiatry; ATTEND Psychiatry & Neurology Child & Adolescent Psychiatry
DX: F25.1 Schizoaffective disorder, depressive type (principal); R45.851 Suicidal ideations; F31.9 Bipolar disorder, unspecified; F84.0 Autistic disorder; G40.909 Epilepsy, unspecified, not intractable, without status epilepticus; J45.909 Unspecified asthma, uncomplicated; K74.60 Unspecified cirrhosis of liver; Z91.5 Personal history of self-harm
CPT/HCPCS: 87081; Q0162

== ENCOUNTER 2020-02-11 14:39 | Emergency (ER) | payer MEDICAID, OTHER ==
[~2020-02-11] VITALS: Ht 167.6 cm; Wt 81.8 kg
[~2020-02-11 14:39] MED LIST changes: -MUPI1OIN5 NASAL
[2020-02-11] MEDS ORDERED: IBUPROFEN 600 MG TABLET PO ONE (15:30)
[2020-02-11 15:37] LABS: BASOPHILS % (AUTO) 0.4 % (0.0-2.0); EOSINOPHILS % (AUTO) 1.5 % (1.0-6.0); HEMATOCRIT 36.3 % (41-53); HEMOGLOBIN 12.7 g/dL (13.5-17.5); LYMPHOCYTES # (AUTO) 1.4 K/uL (1.0-4.8); LYMPHOCYTES % (AUTO) 24.9 % (22.0-44.0); MEAN CORPUSCULAR VOLUME 92 fL (80-100); MONOCYTES # (AUTO) 0.5 K/uL (0.1-1.0); MONOCYTES % (AUTO) 8.3 % (2.0-9.0); NEUTROPHILS # (AUTO) 3.6 K/uL (1.8-7.7); NEUTROPHILS % (AUTO) 64.9 % (40.0-70.0); PLATELET COUNT (AUTO) 180 K/uL (150-450); RED BLOOD CELL COUNT(AUTO) 3.97 MIL/uL (4.50-5.90); RED CELL DISTRIBUTION WIDTH 13.1 % (11.5-14.5)
[2020-02-11 15:46] LABS: AMPHET/METH SCREEN,URINE NEGATIVE (NEGATIVE); BARBITURATE SCREEN, URINE NEGATIVE (NEGATIVE); BENZODIAZEPINES SCREEN,URINE NEGATIVE (NEGATIVE); CANNABINOID SCREEN,URINE NEGATIVE (NEGATIVE); COCAINE SCREEN,URINE NEGATIVE (NEGATIVE); METHADONE SCREEN, URINE NEGATIVE (NEGATIVE); OPIATE SCREEN,URINE NEGATIVE (NEGATIVE)
[2020-02-11 15:46] LABS: ANION GAP 10 mmol/L (8-16); CALCIUM, TOTAL 8.6 mg/dL (8.8-10.5); CARBON DIOXIDE 27 mmol/L (22-29); CHLORIDE 101 mmol/L (98-107); CREATININE 1.02 mg/dL (0.60-1.30); GLOMERULAR FILTR. RATE CALC > 60 mL/min (>60); GLUCOSE,RANDOM 93 mg/dL (70-110); POTASSIUM 4.3 mmol/L (3.5-5.1); SODIUM SERUM 138 mmol/L (136-145); UREA NITROGEN, BLOOD 15 mg/dL (7-18)
[2020-02-11 15:48] LABS: PHENCYCLIDINE SCREEN,URINE NEGATIVE (NEGATIVE)
[2020-02-11 15:52] LABS: ALANINE AMINOTRANSFERASE 50 U/L (12-78); ALKALINE PHOSPHATASE 75 U/L (46-116); ASPARTATE AMINOTRANSFERASE 43 U/L (15-37); BILIRUBIN,TOTAL 0.3 mg/dL (0.1-1.0); TOTAL PROTEIN, SERUM 7.7 g/dL (6.4-8.2)
[2020-02-11 17:34] VITALS: BP 126/73
== END 2020-02-11 18:37 | disposition home or self-care (01) ==
LOC: EMS 14:42
DX: S93.401A Sprain of unspecified ligament of right ankle, initial encounter (principal); R45.851 Suicidal ideations; J45.909 Unspecified asthma, uncomplicated; F31.9 Bipolar disorder, unspecified; F20.9 Schizophrenia, unspecified; Z88.8 Allergy status to other drugs, medicaments and biological substances; X50.1XXA Overexertion from prolonged static or awkward postures, initial encounter; Y93.89 Activity, other specified; Y92.89 Other specified places as the place of occurrence of the external cause; Y99.8 Other external cause status
CPT/HCPCS: 36415; 73610; 80053; 80307; 85025; 99284; G0480

== ENCOUNTER 2020-03-01 00:25 | Emergency (ER) | payer OTHER ==
[~2020-03-01] VITALS: Ht 172.7 cm; Wt 94.5 kg
[2020-03-01 01:15] LABS: BASOPHILS % (AUTO) 0.5 % (0.0-2.0); EOSINOPHILS % (AUTO) 2.2 % (1.0-6.0); HEMATOCRIT 37.7 % (41-53); HEMOGLOBIN 12.9 g/dL (13.5-17.5); LYMPHOCYTES % (AUTO) 27.8 % (22.0-44.0); MEAN CORPUSCULAR HEMOGLOBIN 31.2 pg (26.0-34.0); MEAN CORPUSCULAR HGB CONC 34.1 G/dL (31.0-37.0); MEAN CORPUSCULAR VOLUME 91 fL (80-100); MONOCYTES # (AUTO) 0.7 K/uL (0.1-1.0); MONOCYTES % (AUTO) 9.5 % (2.0-9.0); NEUTROPHILS # (AUTO) 4.2 K/uL (1.8-7.7); PLATELET COUNT (AUTO) 247 K/uL (150-450); RED BLOOD CELL COUNT(AUTO) 4.13 MIL/uL (4.50-5.90); RED CELL DISTRIBUTION WIDTH 12.8 % (11.5-14.5)
[2020-03-01 01:40] LABS: AMPHET/METH SCREEN,URINE NEGATIVE (NEGATIVE); BARBITURATE SCREEN, URINE NEGATIVE (NEGATIVE); BENZODIAZEPINES SCREEN,URINE NEGATIVE (NEGATIVE); CANNABINOID SCREEN,URINE NEGATIVE (NEGATIVE); COCAINE SCREEN,URINE NEGATIVE (NEGATIVE); METHADONE SCREEN, URINE NEGATIVE (NEGATIVE); OPIATE SCREEN,URINE NEGATIVE (NEGATIVE)
[2020-03-01 01:41] LABS: ANION GAP 9 mmol/L (8-16); CALCIUM, TOTAL 8.7 mg/dL (8.8-10.5); CARBON DIOXIDE 27 mmol/L (22-29); CHLORIDE 102 mmol/L (98-107); CREATININE 1.23 mg/dL (0.60-1.30); GLOMERULAR FILTR. RATE CALC > 60 mL/min (>60); GLUCOSE,RANDOM 114 mg/dL (70-110); POTASSIUM 3.7 mmol/L (3.5-5.1); SODIUM SERUM 138 mmol/L (136-145); UREA NITROGEN, BLOOD 16 mg/dL (7-18)
[2020-03-01 01:47] LABS: ALANINE AMINOTRANSFERASE 62 U/L (12-78); ALBUMIN 4.1 g/dL (3.4-5.0); ALKALINE PHOSPHATASE 95 U/L (46-116); ASPARTATE AMINOTRANSFERASE 37 U/L (15-37); BILIRUBIN,TOTAL 0.2 mg/dL (0.1-1.0); TOTAL PROTEIN, SERUM 7.8 g/dL (6.4-8.2)
[2020-03-01 01:47] LABS: PHENCYCLIDINE SCREEN,URINE NEGATIVE (NEGATIVE)
[2020-03-01 02:21] VITALS: BP 132/76
== END 2020-03-01 02:42 | disposition home or self-care (01) ==
LOC: EMS 00:25
DX: F20.9 Schizophrenia, unspecified (principal); F31.9 Bipolar disorder, unspecified; J45.909 Unspecified asthma, uncomplicated; Z88.8 Allergy status to other drugs, medicaments and biological substances; Z91.018 Allergy to other foods
CPT/HCPCS: 36415; 80053; 80307; 85025; 99284; G0480

== ENCOUNTER 2020-03-14 20:59 | Inpatient (IN) | payer MEDICAID, OTHER ==
[~2020-03-14] VITALS: Ht 175.3 cm; Wt 101.0 kg
[2020-03-14] MEDS ORDERED: QUET200T PO (21:14)
[2020-03-14] MEDS ORDERED: IBUP-2071 PO (21:14)
[2020-03-14 21:20] LABS: BASOPHILS % (AUTO) 0.4 % (0.0-2.0); EOSINOPHILS % (AUTO) 1.4 % (1.0-6.0); HEMOGLOBIN 12.7 g/dL (13.5-17.5); LYMPHOCYTES # (AUTO) 1.8 K/uL (1.0-4.8); LYMPHOCYTES % (AUTO) 30.6 % (22.0-44.0); MEAN CORPUSCULAR HEMOGLOBIN 31.9 pg (26.0-34.0); MEAN CORPUSCULAR HGB CONC 35.3 G/dL (31.0-37.0); MEAN CORPUSCULAR VOLUME 91 fL (80-100); MONOCYTES # (AUTO) 0.4 K/uL (0.1-1.0); MONOCYTES % (AUTO) 6.2 % (2.0-9.0); NEUTROPHILS # (AUTO) 3.6 K/uL (1.8-7.7); NEUTROPHILS % (AUTO) 61.4 % (40.0-70.0); PLATELET COUNT (AUTO) 213 K/uL (150-450); RED BLOOD CELL COUNT(AUTO) 3.98 MIL/uL (4.50-5.90); RED CELL DISTRIBUTION WIDTH 12.8 % (11.5-14.5)
[2020-03-14] MEDS ORDERED: ACTIVATED CHARCOAL 50 GM/240 ML SUSPENSION PO ONE (21:30)
[2020-03-14 21:39] LABS: AMPHET/METH SCREEN,URINE NEGATIVE (NEGATIVE); BARBITURATE SCREEN, URINE NEGATIVE (NEGATIVE); BENZODIAZEPINES SCREEN,URINE NEGATIVE (NEGATIVE); CANNABINOID SCREEN,URINE NEGATIVE (NEGATIVE); COCAINE SCREEN,URINE NEGATIVE (NEGATIVE); METHADONE SCREEN, URINE NEGATIVE (NEGATIVE); OPIATE SCREEN,URINE NEGATIVE (NEGATIVE)
[2020-03-14 21:42] LABS: ANION GAP 9 mmol/L (8-16); CALCIUM, TOTAL 8.3 mg/dL (8.8-10.5); CARBON DIOXIDE 27 mmol/L (22-29); CHLORIDE 96 mmol/L (98-107); CREATININE 1.16 mg/dL (0.60-1.30); GLOMERULAR FILTR. RATE CALC > 60 mL/min (>60); GLUCOSE,RANDOM 99 mg/dL (70-110); POTASSIUM 3.9 mmol/L (3.5-5.1); SODIUM SERUM 132 mmol/L (136-145); UREA NITROGEN, BLOOD 8 mg/dL (7-18)
[2020-03-14 21:43] LABS: PHENCYCLIDINE SCREEN,URINE NEGATIVE (NEGATIVE)
[2020-03-14 21:49] LABS: ALANINE AMINOTRANSFERASE 56 U/L (12-78); ALBUMIN 4.2 g/dL (3.4-5.0); ALKALINE PHOSPHATASE 83 U/L (46-116); ASPARTATE AMINOTRANSFERASE 33 U/L (15-37); BILIRUBIN,TOTAL 0.3 mg/dL (0.1-1.0); TOTAL PROTEIN, SERUM 7.4 g/dL (6.4-8.2); VALPROIC ACID 61 mcg/mL (50-100)
[2020-03-14 22:02] LABS: ACETAMINOPHEN < 2 mcg/mL (10-30)
[2020-03-14] MEDS ORDERED: SODIUM CHLORIDE 0.9% 1,000 ML IV ONE (22:30)
[2020-03-14] MEDS ORDERED: ONDANSETRON HCL 4 MG/2 ML VIAL IVP ONE (22:30)
[2020-03-15 02:14] LABS: ANION GAP 9 mmol/L (8-16); CALCIUM, TOTAL 7.9 mg/dL (8.8-10.5); CARBON DIOXIDE 26 mmol/L (22-29); CHLORIDE 101 mmol/L (98-107); CREATININE 1.13 mg/dL (0.60-1.30); GLOMERULAR FILTR. RATE CALC > 60 mL/min (>60); GLUCOSE,RANDOM 112 mg/dL (70-110); POTASSIUM 3.4 mmol/L (3.5-5.1); SODIUM SERUM 136 mmol/L (136-145); UREA NITROGEN, BLOOD 7 mg/dL (7-18)
[2020-03-15 02:19] LABS: VALPROIC ACID 51 mcg/mL (50-100)
[2020-03-15] MEDS ORDERED: POTASSIUM CHLORIDE 20 MEQ ER TABLET PO ONE (03:15)
[2020-03-15] MEDS ORDERED: PB/HYOSCY/ATR/SCOP/LIDO/MAALOX 55 ML BOTTLE PO ONE (03:15)
[2020-03-15] MEDS ORDERED: FAMOTIDINE 10 MG/ML 2 ML VIAL IVP ONE (03:15)
[2020-03-15 06:35] LABS: ANION GAP 5 mmol/L (8-16); CARBON DIOXIDE 28 mmol/L (22-29); CHLORIDE 103 mmol/L (98-107); CREATININE 1.19 mg/dL (0.60-1.30); GLOMERULAR FILTR. RATE CALC > 60 mL/min (>60); GLUCOSE,RANDOM 112 mg/dL (70-110); POTASSIUM 4.1 mmol/L (3.5-5.1); SODIUM SERUM 136 mmol/L (136-145); UREA NITROGEN, BLOOD 8 mg/dL (7-18)
[2020-03-15 06:40] LABS: VALPROIC ACID 51 mcg/mL (50-100)
[2020-03-15] MEDS ORDERED: ACETAMINOPHEN 325 MG TABLET PO PRN (10:15)
[2020-03-15] MEDS ORDERED: QUEtiapine FUMARATE 100 MG TABLET PO PRN (10:15)
[2020-03-16 00:10] VITALS: BP 124/74
[2020-03-16] MEDS ORDERED: PNEUMOCOCCAL VACCINE POLYVALENT 0.5 ML VIAL [PPSV23] IM ONE (04:45)
[2020-03-16 06:49] LABS: APPEARANCE,URINE CLEAR (CLEAR); BILIRUBIN,URINE NEGATIVE (NEGATIVE); GLUCOSE, URINE (UA) NEGATIVE (NEGATIVE); KETONES,URINE NEGATIVE (NEGATIVE); LEUKOCYTE ESTERASE ,URINE NEGATIVE (NEGATIVE); NITRATE,URINE NEGATIVE (NEGATIVE); OCCULT BLOOD,URINE NEGATIVE (NEGATIVE); PROTEIN,URINE NEGATIVE (NEGATIVE); UROBILINOGEN,URINE 0.2 mg/dL (<=1.0)
[2020-03-16] MEDS ORDERED: DOCUSATE SODIUM 100 MG CAPSULE PO PRN (09:00)
[2020-03-16] MEDS ORDERED: LevETIRAcetam 250 MG TABLET PO SCH (09:00)
[2020-03-16] MEDS ORDERED: CloNIDine HCL 0.1 MG TABLET PO PRN (09:00)
[2020-03-16] MEDS ORDERED: ALBUTEROL SULFATE HFA 90 MCG/PUFF 8 GM INHALER IH PRN (09:00)
[2020-03-16] MEDS ORDERED: LOPERAMIDE HCL 2 MG CAPSULE PO PRN (09:00)
[2020-03-16] MEDS ORDERED: ACETAMINOPHEN 325 MG TABLET PO PRN (09:00)
[2020-03-16] MEDS ORDERED: GuaiFENesin/D-METHORPHAN [SUGAR-FREE] 200-20MG/10 ML SYRUP UDCUP PO PRN (09:00)
[2020-03-16] MEDS ORDERED: PETROLATUM,WHITE 28 GM JELLY TP PRN (09:00)
[2020-03-16] MEDS ORDERED: NICOTINE 14 MG/24 HOUR PATCH TD PRN (09:00)
[2020-03-16] MEDS ORDERED: MAG HYDROX/AL HYDROX/SIMETH ES 30 ML SUSPENSION UDCUP PO PRN (09:00)
[2020-03-16] MEDS ORDERED: MAGNESIUM HYDROXIDE SUSPENSION 30 ML UDCUP PO PRN (09:00)
[2020-03-16] MEDS: LevETIRAcetam 500 MG TABLET PO SCH ×2 (10:16→16:26)
[2020-03-16] MEDS ORDERED: LEVE500T53 PO (11:32)
[2020-03-16] MEDS: DIVALPROEX SODIUM 500 MG DR TABLET PO SCH ×2 (13:18→16:25)
[2020-03-16] MEDS: ONDANSETRON HCL 4 MG TABLET PO PRN (13:43)
[2020-03-16 16:00] VITALS: BP 125/77
[2020-03-16] MEDS: QUEtiapine FUMARATE 200 MG TABLET PO SCH (20:30)
[2020-03-16 20:53] VITALS: BP 118/74
[2020-03-16] MEDS: IBUPROFEN 400 MG TABLET PO PRN (20:53)
[2020-03-17 08:00] VITALS: BP 131/77
[2020-03-17] MEDS: LevETIRAcetam 500 MG TABLET PO SCH ×2 (09:15→16:02)
[2020-03-17] MEDS: DIVALPROEX SODIUM 500 MG DR TABLET PO SCH ×3 (09:15→16:02)
[2020-03-17] MEDS: ONDANSETRON HCL 4 MG TABLET PO PRN (10:03)
[2020-03-17] MEDS: IBUPROFEN 400 MG TABLET PO PRN ×2 (10:04→20:24)
[2020-03-17] MEDS: MUPIROCIN CALCIUM 2% 22 GM OINTMENT NASAL SCH ×2 (11:06→16:02)
[2020-03-17 16:33] VITALS: BP 131/89
[2020-03-17] MEDS: QUEtiapine FUMARATE 200 MG TABLET PO SCH (20:14)
[2020-03-17 20:21] VITALS: BP 121/75
[2020-03-18 06:26] VITALS: BP 119/74
[2020-03-18 09:18] VITALS: BP 128/74
[2020-03-18] MEDS: LevETIRAcetam 500 MG TABLET PO SCH (09:22)
[2020-03-18] MEDS: DIVALPROEX SODIUM 500 MG DR TABLET PO SCH ×2 (09:22→13:28)
[2020-03-18] MEDS: IBUPROFEN 400 MG TABLET PO PRN (09:23)
[2020-03-18] MEDS ORDERED: DIVA-112 PO (12:15)
[2020-03-18] MEDS ORDERED: MUPI1OIN5 NASAL (12:19)
[2020-03-18] MEDS: MUPIROCIN CALCIUM 2% 22 GM OINTMENT NASAL SCH (13:26)
== END 2020-03-18 14:31 | disposition home or self-care (01) | DRG 750 ==
LOC: EMS 20:59 → 3EI 03-15 → UNDOADMIN 03-15 21:30 → 3EI 03-15 21:30
PROVIDERS: ADMIT Psychiatry & Neurology Child & Adolescent Psychiatry; ATTEND Psychiatry & Neurology Child & Adolescent Psychiatry
DX: F25.1 Schizoaffective disorder, depressive type (principal); E78.5 Hyperlipidemia, unspecified; F84.0 Autistic disorder; G40.909 Epilepsy, unspecified, not intractable, without status epilepticus; I10 Essential (primary) hypertension; J44.9 Chronic obstructive pulmonary disease, unspecified; K74.60 Unspecified cirrhosis of liver; Q90.9 Down syndrome, unspecified; Z88.8 Allergy status to other drugs, medicaments and biological substances; Z90.49 Acquired absence of other specified parts of digestive tract
CPT/HCPCS: 84443; 87081; 93005; 96361; 96374; 96375; 99291; G0480; G0481; J2405; J3490; J7030; Q0162; 36415-L1; 36415-TC; 81003-TC

== ENCOUNTER 2020-03-21 19:33 | Inpatient (IN) | payer MEDICAID, OTHER ==
[~2020-03-21] VITALS: Ht 175.3 cm; Wt 96.6 kg
[~2020-03-21 19:33] MED LIST changes: +DIVA-112 PO; -DIVA-80 PO; -LEVE250T55 PO; +LEVE500T53 PO; +MUPI1OIN5 NASAL; -NALT50TA6 PO; -PALI3TAB14 PO; +QUET200T PO
[2020-03-21 20:54] LABS: BASOPHILS % (AUTO) 0.7 % (0.0-2.0); EOSINOPHILS % (AUTO) 1.2 % (1.0-6.0); HEMOGLOBIN 12.7 g/dL (13.5-17.5); LYMPHOCYTES # (AUTO) 1.7 K/uL (1.0-4.8); LYMPHOCYTES % (AUTO) 27.9 % (22.0-44.0); MEAN CORPUSCULAR HEMOGLOBIN 31.2 pg (26.0-34.0); MEAN CORPUSCULAR HGB CONC 34.2 G/dL (31.0-37.0); MEAN CORPUSCULAR VOLUME 91 fL (80-100); MONOCYTES # (AUTO) 0.5 K/uL (0.1-1.0); MONOCYTES % (AUTO) 8.1 % (2.0-9.0); NEUTROPHILS # (AUTO) 3.7 K/uL (1.8-7.7); NEUTROPHILS % (AUTO) 62.1 % (40.0-70.0); PLATELET COUNT (AUTO) 216 K/uL (150-450); RED BLOOD CELL COUNT(AUTO) 4.06 MIL/uL (4.50-5.90); RED CELL DISTRIBUTION WIDTH 12.8 % (11.5-14.5)
[2020-03-21 21:09] LABS: ANION GAP 6 mmol/L (8-16); CALCIUM, TOTAL 8.8 mg/dL (8.8-10.5); CARBON DIOXIDE 28 mmol/L (22-29); CHLORIDE 105 mmol/L (98-107); CREATININE 1.22 mg/dL (0.60-1.30); GLOMERULAR FILTR. RATE CALC > 60 mL/min (>60); GLUCOSE,RANDOM 102 mg/dL (70-110); SODIUM SERUM 139 mmol/L (136-145); UREA NITROGEN, BLOOD 6 mg/dL (7-18)
[2020-03-21 21:15] LABS: ALANINE AMINOTRANSFERASE 44 U/L (12-78); ALBUMIN 4.2 g/dL (3.4-5.0); ALKALINE PHOSPHATASE 85 U/L (46-116); ASPARTATE AMINOTRANSFERASE 31 U/L (15-37); BILIRUBIN,TOTAL 0.1 mg/dL (0.1-1.0); TOTAL PROTEIN, SERUM 7.6 g/dL (6.4-8.2); VALPROIC ACID 54 mcg/mL (50-100)
[2020-03-21] MEDS ORDERED: QUEtiapine FUMARATE 100 MG TABLET PO PRN (23:00)
[2020-03-21 23:55] LABS: AMPHET/METH SCREEN,URINE NEGATIVE (NEGATIVE); BARBITURATE SCREEN, URINE NEGATIVE (NEGATIVE); BENZODIAZEPINES SCREEN,URINE NEGATIVE (NEGATIVE); CANNABINOID SCREEN,URINE NEGATIVE (NEGATIVE); COCAINE SCREEN,URINE NEGATIVE (NEGATIVE); METHADONE SCREEN, URINE NEGATIVE (NEGATIVE); OPIATE SCREEN,URINE NEGATIVE (NEGATIVE)
[2020-03-22 00:08] LABS: PHENCYCLIDINE SCREEN,URINE NEGATIVE (NEGATIVE)
[2020-03-22 02:29] VITALS: BP 135/72
[2020-03-22] MEDS ORDERED: ALBUTEROL SULFATE HFA 90 MCG/PUFF 8 GM INHALER IH PRN (08:00)
[2020-03-22] MEDS ORDERED: GuaiFENesin/D-METHORPHAN [SUGAR-FREE] 200-20MG/10 ML SYRUP UDCUP PO PRN (08:00)
[2020-03-22] MEDS ORDERED: NICOTINE 14 MG/24 HOUR PATCH TD PRN (08:00)
[2020-03-22] MEDS ORDERED: LOPERAMIDE HCL 2 MG CAPSULE PO PRN (08:00)
[2020-03-22] MEDS ORDERED: MAG HYDROX/AL HYDROX/SIMETH ES 30 ML SUSPENSION UDCUP PO PRN (08:00)
[2020-03-22] MEDS ORDERED: ACETAMINOPHEN 325 MG TABLET PO PRN (08:00)
[2020-03-22] MEDS ORDERED: PETROLATUM,WHITE 28 GM JELLY TP PRN (08:00)
[2020-03-22] MEDS ORDERED: IBUPROFEN 400 MG TABLET PO PRN (08:00)
[2020-03-22] MEDS ORDERED: MAGNESIUM HYDROXIDE SUSPENSION 30 ML UDCUP PO PRN (08:00)
[2020-03-22] MEDS ORDERED: DOCUSATE SODIUM 100 MG CAPSULE PO PRN (08:00)
[2020-03-22] MEDS ORDERED: ONDANSETRON HCL 4 MG TABLET PO PRN (08:00)
[2020-03-22] MEDS ORDERED: CloNIDine HCL 0.1 MG TABLET PO PRN (08:00)
[2020-03-22] MEDS: LevETIRAcetam 500 MG TABLET PO SCH ×2 (09:00→16:02)
[2020-03-22 09:18] LABS: CHOL/HDL RATIO 4.5 (4.2-7.3)
[2020-03-22 09:35] LABS: APPEARANCE,URINE CLEAR (CLEAR); BILIRUBIN,URINE NEGATIVE (NEGATIVE); GLUCOSE, URINE (UA) NEGATIVE (NEGATIVE); KETONES,URINE NEGATIVE (NEGATIVE); LEUKOCYTE ESTERASE ,URINE NEGATIVE (NEGATIVE); NITRATE,URINE NEGATIVE (NEGATIVE); OCCULT BLOOD,URINE NEGATIVE (NEGATIVE); PROTEIN,URINE NEGATIVE (NEGATIVE); UROBILINOGEN,URINE 0.2 mg/dL (<=1.0)
[2020-03-22 10:06] LABS: BACTERIA,URINE None Seen /HPF (None Seen); RBC,URINE None Seen /HPF (0-2); SQUAMOUS EPITHELIAL CELL,UR None Seen /LPF (None Seen); WBC,URINE None Seen /HPF (0-5)
[2020-03-22] MEDS: DIVALPROEX SODIUM 500 MG DR TABLET PO SCH (16:02)
[2020-03-22 16:34] VITALS: BP 135/86
[2020-03-22] MEDS: QUEtiapine FUMARATE 200 MG TABLET PO SCH (20:17)
[2020-03-23 06:44] VITALS: BP 126/81
[2020-03-23] MEDS: DIVALPROEX SODIUM 500 MG DR TABLET PO SCH ×3 (08:40→16:31)
[2020-03-23] MEDS: LevETIRAcetam 500 MG TABLET PO SCH ×2 (08:40→16:31)
[2020-03-23 08:42] VITALS: BP 11/62
[2020-03-23 16:21] VITALS: BP 118/63
[2020-03-23] MEDS: QUEtiapine FUMARATE 200 MG TABLET PO SCH (20:10)
[2020-03-24 05:46] VITALS: BP 121/58
[2020-03-24] MEDS: LevETIRAcetam 500 MG TABLET PO SCH (08:24)
[2020-03-24] MEDS: DIVALPROEX SODIUM 500 MG DR TABLET PO SCH ×2 (08:24→12:27)
[2020-03-24 08:30] VITALS: BP 119/67
[2020-03-24 16:48] VITALS: BP 130/83
== END 2020-03-24 18:30 | disposition home or self-care (01) | DRG 750 ==
LOC: EMS 19:33 → B2S 22:52
PROVIDERS: ADMIT Psychiatry & Neurology Child & Adolescent Psychiatry; ATTEND Psychiatry & Neurology Child & Adolescent Psychiatry
DX: F25.1 Schizoaffective disorder, depressive type (principal); F84.0 Autistic disorder; J45.909 Unspecified asthma, uncomplicated; E78.5 Hyperlipidemia, unspecified; G40.909 Epilepsy, unspecified, not intractable, without status epilepticus; G89.29 Other chronic pain; K74.60 Unspecified cirrhosis of liver; F10.10 Alcohol abuse, uncomplicated; R45.851 Suicidal ideations; D64.9 Anemia, unspecified; Z91.5 Personal history of self-harm; Z88.8 Allergy status to other drugs, medicaments and biological substances
CPT/HCPCS: 87081; G0480

== ENCOUNTER 2020-03-31 16:45 | Emergency (ER) | payer MEDICAID, OTHER ==
[~2020-03-31] VITALS: Ht 167.6 cm; Wt 84.1 kg
[~2020-03-31 16:45] MED LIST changes: -MUPI1OIN5 NASAL
[2020-03-31] MEDS ORDERED: KETOROLAC TROMETHAMINE 60 MG/2 ML VIAL IM ONE (18:45)
[2020-03-31 19:45] VITALS: BP 132/82
== END 2020-03-31 19:45 | disposition home or self-care (01) ==
LOC: EMS 16:45
DX: S46.911A Strain of unspecified muscle, fascia and tendon at shoulder and upper arm level, right arm, initial encounter (principal); F31.9 Bipolar disorder, unspecified; W20.8XXA Other cause of strike by thrown, projected or falling object, initial encounter; Y93.89 Activity, other specified; Y92.89 Other specified places as the place of occurrence of the external cause; Y99.8 Other external cause status
CPT/HCPCS: 73030; 96372; 99283; J1885

== ENCOUNTER 2020-04-02 21:21 | Inpatient (IN) | payer MEDICAID, OTHER ==
[~2020-04-02] VITALS: Ht 175.3 cm; Wt 98.6 kg
[2020-04-02] MEDS ORDERED: RISP0.5T20 PO (21:31)
[2020-04-02] MEDS ORDERED: HYDR-3709 PO (21:37)
[2020-04-02 22:50] LABS: BASOPHILS % (AUTO) 0.2 % (0.0-2.0); EOSINOPHILS % (AUTO) 1.9 % (1.0-6.0); HEMATOCRIT 35.1 % (41-53); HEMOGLOBIN 12.2 g/dL (13.5-17.5); MEAN CORPUSCULAR HEMOGLOBIN 31.6 pg (26.0-34.0); MEAN CORPUSCULAR HGB CONC 34.7 G/dL (31.0-37.0); MEAN CORPUSCULAR VOLUME 91 fL (80-100); MONOCYTES # (AUTO) 0.6 K/uL (0.1-1.0); MONOCYTES % (AUTO) 9.2 % (2.0-9.0); NEUTROPHILS # (AUTO) 3.7 K/uL (1.8-7.7); NEUTROPHILS % (AUTO) 57.7 % (40.0-70.0); PLATELET COUNT (AUTO) 197 K/uL (150-450); RED BLOOD CELL COUNT(AUTO) 3.85 MIL/uL (4.50-5.90); RED CELL DISTRIBUTION WIDTH 12.8 % (11.5-14.5)
[2020-04-02 22:55] LABS: ANION GAP 3 mmol/L (8-16); CALCIUM, TOTAL 8.4 mg/dL (8.8-10.5); CARBON DIOXIDE 29 mmol/L (22-29); CHLORIDE 100 mmol/L (98-107); CREATININE 0.88 mg/dL (0.60-1.30); GLOMERULAR FILTR. RATE CALC > 60 mL/min (>60); GLUCOSE,RANDOM 108 mg/dL (70-110); POTASSIUM 3.5 mmol/L (3.5-5.1); SODIUM SERUM 132 mmol/L (136-145); UREA NITROGEN, BLOOD 5 mg/dL (7-18)
[2020-04-02 23:07] LABS: SALICYLATE < 2.8 mg/dL (2.8-20.0)
[2020-04-02 23:11] LABS: ACETAMINOPHEN < 2 mcg/mL (10-30); ALANINE AMINOTRANSFERASE 37 U/L (12-78); ALBUMIN 3.7 g/dL (3.4-5.0); ALKALINE PHOSPHATASE 80 U/L (46-116); ASPARTATE AMINOTRANSFERASE 31 U/L (15-37); BILIRUBIN,TOTAL 0.1 mg/dL (0.1-1.0); TOTAL PROTEIN, SERUM 7.2 g/dL (6.4-8.2); VALPROIC ACID 109 mcg/mL (50-100)
[2020-04-02 23:19] LABS: AMPHET/METH SCREEN,URINE NEGATIVE (NEGATIVE); BARBITURATE SCREEN, URINE NEGATIVE (NEGATIVE); BENZODIAZEPINES SCREEN,URINE NEGATIVE (NEGATIVE); CANNABINOID SCREEN,URINE NEGATIVE (NEGATIVE); COCAINE SCREEN,URINE NEGATIVE (NEGATIVE); METHADONE SCREEN, URINE NEGATIVE (NEGATIVE); OPIATE SCREEN,URINE NEGATIVE (NEGATIVE)
[2020-04-02 23:21] LABS: PHENCYCLIDINE SCREEN,URINE NEGATIVE (NEGATIVE)
[2020-04-03 03:42] LABS: VALPROIC ACID 89 mcg/mL (50-100)
[2020-04-03 03:45] LABS: ACETAMINOPHEN < 2 mcg/mL (10-30)
[2020-04-03] MEDS ORDERED: QUEtiapine FUMARATE 100 MG TABLET PO PRN (08:45)
[2020-04-03] MEDS ORDERED: ONDANSETRON HCL 4 MG TABLET PO PRN (09:30)
[2020-04-03] MEDS ORDERED: NICOTINE 14 MG/24 HOUR PATCH TD PRN (09:30)
[2020-04-03] MEDS ORDERED: LOPERAMIDE HCL 2 MG CAPSULE PO PRN (09:30)
[2020-04-03] MEDS ORDERED: GuaiFENesin/D-METHORPHAN [SUGAR-FREE] 200-20MG/10 ML SYRUP UDCUP PO PRN (09:30)
[2020-04-03] MEDS ORDERED: ACETAMINOPHEN 325 MG TABLET PO PRN (09:30)
[2020-04-03] MEDS ORDERED: DOCUSATE SODIUM 100 MG CAPSULE PO PRN (09:30)
[2020-04-03] MEDS ORDERED: CloNIDine HCL 0.1 MG TABLET PO PRN (09:30)
[2020-04-03] MEDS ORDERED: MAG HYDROX/AL HYDROX/SIMETH ES 30 ML SUSPENSION UDCUP PO PRN (09:30)
[2020-04-03] MEDS ORDERED: MAGNESIUM HYDROXIDE SUSPENSION 30 ML UDCUP PO PRN (09:30)
[2020-04-03] MEDS ORDERED: PETROLATUM,WHITE 28 GM JELLY TP PRN (09:30)
[2020-04-03 13:04] LABS: APPEARANCE,URINE CLEAR (CLEAR); BILIRUBIN,URINE NEGATIVE (NEGATIVE); GLUCOSE, URINE (UA) NEGATIVE (NEGATIVE); KETONES,URINE NEGATIVE (NEGATIVE); LEUKOCYTE ESTERASE ,URINE NEGATIVE (NEGATIVE); NITRATE,URINE NEGATIVE (NEGATIVE); OCCULT BLOOD,URINE NEGATIVE (NEGATIVE); PROTEIN,URINE NEGATIVE (NEGATIVE); UROBILINOGEN,URINE 0.2 mg/dL (<=1.0)
[2020-04-03] MEDS: LevETIRAcetam 500 MG TABLET PO SCH (18:12)
[2020-04-03 18:41] VITALS: BP 123/83
[2020-04-04 05:40] VITALS: BP 118/76
[2020-04-04 08:07] LABS: CHOL/HDL RATIO 6.6 (4.2-7.3)
[2020-04-04 08:49] VITALS: BP 100/60
[2020-04-04] MEDS: LevETIRAcetam 500 MG TABLET PO SCH ×2 (10:17→16:26)
[2020-04-04] MEDS: ALBUTEROL SULFATE HFA 90 MCG/PUFF 8 GM INHALER IH PRN (14:43)
[2020-04-04] MEDS: DIVALPROEX SODIUM 500 MG DR TABLET PO SCH (16:26)
[2020-04-04 18:04] VITALS: BP 123/81
[2020-04-04] MEDS: QUEtiapine FUMARATE 200 MG TABLET PO SCH (20:03)
[2020-04-05 03:30] VITALS: BP 129/80
[2020-04-05] MEDS: IBUPROFEN 400 MG TABLET PO PRN ×2 (03:47→14:14)
[2020-04-05 08:05] VITALS: BP 124/78
[2020-04-05] MEDS: DIVALPROEX SODIUM 500 MG DR TABLET PO SCH ×3 (09:00→16:41)
[2020-04-05] MEDS: LevETIRAcetam 500 MG TABLET PO SCH ×2 (09:00→16:41)
[2020-04-05 16:08] VITALS: BP 136/76
[2020-04-05] MEDS: QUEtiapine FUMARATE 200 MG TABLET PO SCH (20:08)
[2020-04-06 06:15] VITALS: BP 128/74
[2020-04-06] MEDS: LevETIRAcetam 500 MG TABLET PO SCH ×2 (10:35→16:28)
[2020-04-06] MEDS: DIVALPROEX SODIUM 500 MG DR TABLET PO SCH ×3 (10:35→16:28)
[2020-04-06 16:12] VITALS: BP 123/67
[2020-04-06] MEDS: QUEtiapine FUMARATE 200 MG TABLET PO SCH (20:00)
[2020-04-07 05:07] VITALS: BP 118/72
[2020-04-07] MEDS: IBUPROFEN 400 MG TABLET PO PRN (06:10)
[2020-04-07 08:37] VITALS: BP 127/73
[2020-04-07] MEDS: DIVALPROEX SODIUM 500 MG DR TABLET PO SCH ×3 (09:00→16:36)
[2020-04-07] MEDS: LevETIRAcetam 500 MG TABLET PO SCH ×2 (09:00→16:35)
[2020-04-07 16:03] VITALS: BP 128/77
[2020-04-07] MEDS: QUEtiapine FUMARATE 200 MG TABLET PO SCH (20:09)
[2020-04-08 00:50] VITALS: BP 105/68
[2020-04-08 08:10] VITALS: BP 124/69
[2020-04-08] MEDS: DIVALPROEX SODIUM 500 MG DR TABLET PO SCH ×2 (08:34→12:52)
[2020-04-08] MEDS: LevETIRAcetam 500 MG TABLET PO SCH (08:34)
[2020-04-08] MEDS: ALBUTEROL SULFATE HFA 90 MCG/PUFF 8 GM INHALER IH PRN (13:18)
[2020-04-08 16:04] VITALS: BP 106/66
== END 2020-04-08 18:08 | disposition home or self-care (01) | DRG 750 ==
LOC: EMS 21:23 → B2S 04-03 15:11
PROVIDERS: ADMIT Psychiatry & Neurology Child & Adolescent Psychiatry; ATTEND Psychiatry & Neurology Child & Adolescent Psychiatry
DX: F25.1 Schizoaffective disorder, depressive type (principal); F84.0 Autistic disorder; E78.5 Hyperlipidemia, unspecified; G40.909 Epilepsy, unspecified, not intractable, without status epilepticus; K74.60 Unspecified cirrhosis of liver; E87.1 Hypo-osmolality and hyponatremia; F32.9 Major depressive disorder, single episode, unspecified; I10 Essential (primary) hypertension; J44.9 Chronic obstructive pulmonary disease, unspecified; K21.9 Gastro-esophageal reflux disease without esophagitis; T39.312A Poisoning by propionic acid derivatives, intentional self-harm, initial encounter; D64.9 Anemia, unspecified; G89.29 Other chronic pain; M54.9 Dorsalgia, unspecified; Q90.9 Down syndrome, unspecified; Z91.5 Personal history of self-harm; Y92.89 Other specified places as the place of occurrence of the external cause; Z88.8 Allergy status to other drugs, medicaments and biological substances; Z03.818 Encounter for observation for suspected exposure to other biological agents ruled out
CPT/HCPCS: 87426; 93005; 99291; G0480; G0481; J3535

== ENCOUNTER 2020-04-26 00:48 | Inpatient (IN) | payer MEDICAID, OTHER ==
[~2020-04-26] VITALS: Ht 170.2 cm; Wt 99.4 kg
[~2020-04-26 00:48] MED LIST changes: -DIVA-112 PO; +OMEG-135 PO
[2020-04-26 02:13] LABS: BASOPHILS % (AUTO) 0.6 % (0.0-2.0); EOSINOPHILS % (AUTO) 3.1 % (1.0-6.0); HEMATOCRIT 36.3 % (41-53); HEMOGLOBIN 12.4 g/dL (13.5-17.5); LYMPHOCYTES # (AUTO) 1.6 K/uL (1.0-4.8); MEAN CORPUSCULAR HEMOGLOBIN 31.2 pg (26.0-34.0); MEAN CORPUSCULAR HGB CONC 34.3 G/dL (31.0-37.0); MEAN CORPUSCULAR VOLUME 91 fL (80-100); MONOCYTES # (AUTO) 0.5 K/uL (0.1-1.0); NEUTROPHILS # (AUTO) 2.4 K/uL (1.8-7.7); NEUTROPHILS % (AUTO) 51.3 % (40.0-70.0); PLATELET COUNT (AUTO) 177 K/uL (150-450); RED BLOOD CELL COUNT(AUTO) 3.98 MIL/uL (4.50-5.90); RED CELL DISTRIBUTION WIDTH 12.6 % (11.5-14.5)
[2020-04-26 02:23] LABS: ANION GAP 8 mmol/L (8-16); CALCIUM, TOTAL 8.1 mg/dL (8.8-10.5); CARBON DIOXIDE 29 mmol/L (22-29); CHLORIDE 98 mmol/L (98-107); CREATININE 0.99 mg/dL (0.60-1.30); GLOMERULAR FILTR. RATE CALC > 60 mL/min (>60); GLUCOSE,RANDOM 112 mg/dL (70-110); POTASSIUM 4.1 mmol/L (3.5-5.1); SODIUM SERUM 135 mmol/L (136-145); UREA NITROGEN, BLOOD 13 mg/dL (7-18)
[2020-04-26 02:29] LABS: ALANINE AMINOTRANSFERASE 33 U/L (12-78); ALBUMIN 3.7 g/dL (3.4-5.0); ALKALINE PHOSPHATASE 75 U/L (46-116); ASPARTATE AMINOTRANSFERASE 30 U/L (15-37); BILIRUBIN,TOTAL 0.1 mg/dL (0.1-1.0); TOTAL PROTEIN, SERUM 6.9 g/dL (6.4-8.2)
[2020-04-26 03:11] LABS: AMPHET/METH SCREEN,URINE NEGATIVE (NEGATIVE); BARBITURATE SCREEN, URINE NEGATIVE (NEGATIVE); BENZODIAZEPINES SCREEN,URINE NEGATIVE (NEGATIVE); CANNABINOID SCREEN,URINE NEGATIVE (NEGATIVE); COCAINE SCREEN,URINE NEGATIVE (NEGATIVE); METHADONE SCREEN, URINE NEGATIVE (NEGATIVE); OPIATE SCREEN,URINE NEGATIVE (NEGATIVE)
[2020-04-26 03:15] LABS: PHENCYCLIDINE SCREEN,URINE NEGATIVE (NEGATIVE)
[2020-04-26 04:38] LABS: COVID AG,FIA SOURCE NASOPHARYNGEAL
[2020-04-26] MEDS ORDERED: OLANZapine 5 MG RAPDIS TABLET PO PRN (04:45)
[2020-04-26 08:14] VITALS: BP 117/62
[2020-04-26] MEDS ORDERED: DOCUSATE SODIUM 100 MG CAPSULE PO PRN (09:30)
[2020-04-26] MEDS ORDERED: ALBUTEROL SULFATE HFA 90 MCG/PUFF 8 GM INHALER IH PRN (09:30)
[2020-04-26] MEDS ORDERED: ONDANSETRON HCL 4 MG TABLET PO PRN (09:30)
[2020-04-26] MEDS ORDERED: MAG HYDROX/AL HYDROX/SIMETH ES 30 ML SUSPENSION UDCUP PO PRN (09:30)
[2020-04-26] MEDS ORDERED: PETROLATUM,WHITE 28 GM JELLY TP PRN (09:30)
[2020-04-26] MEDS ORDERED: BACITRACIN 28 GM OINTMENT TP PRN (09:30)
[2020-04-26] MEDS ORDERED: BENZOCAINE/MENTHOL LOZENGE PO PRN (09:30)
[2020-04-26] MEDS ORDERED: CloNIDine HCL 0.1 MG TABLET PO PRN (09:30)
[2020-04-26] MEDS ORDERED: MAGNESIUM HYDROXIDE SUSPENSION 30 ML UDCUP PO PRN (09:30)
[2020-04-26] MEDS ORDERED: LOPERAMIDE HCL 2 MG CAPSULE PO PRN (09:30)
[2020-04-26] MEDS ORDERED: OMEPRAZOLE 20 MG CAPSULE PO PRN (09:30)
[2020-04-26] MEDS: LevETIRAcetam 500 MG TABLET PO SCH ×2 (10:53→16:35)
[2020-04-26] MEDS ORDERED: ZOLPIDEM TARTRATE 10 MG TABLET PO PRN (11:15)
[2020-04-26] MEDS ORDERED: INFLUENZA VIRUS VACCINE QVS 2020-21 (6MO+)/PF 60 MCG/0.5 ML SYRINGE IM ONE (11:15)
[2020-04-26] MEDS ORDERED: HALOPERIDOL 5 MG TABLET PO PRN (11:15)
[2020-04-26 16:02] VITALS: BP 102/62
[2020-04-26] MEDS: QUEtiapine FUMARATE 200 MG TABLET PO SCH (20:13)
[2020-04-27 06:54] VITALS: BP 124/46
[2020-04-27 08:10] VITALS: BP 127/82
[2020-04-27] MEDS: OMEGA-3/DHA/EPA/FISH OIL 1,000 MG CAPSULE PO SCH (08:28)
[2020-04-27] MEDS: LevETIRAcetam 500 MG TABLET PO SCH ×2 (08:28→16:05)
[2020-04-27 16:03] VITALS: BP 102/69
[2020-04-27] MEDS: ACETAMINOPHEN 325 MG TABLET PO PRN (17:10)
[2020-04-27] MEDS: QUEtiapine FUMARATE 200 MG TABLET PO SCH (20:13)
[2020-04-27 20:24] VITALS: BP 123/87
[2020-04-27] MEDS: IBUPROFEN 600 MG TABLET PO PRN (20:25)
[2020-04-28 03:09] VITALS: BP 118/74
[2020-04-28] MEDS: OMEGA-3/DHA/EPA/FISH OIL 1,000 MG CAPSULE PO SCH (08:01)
[2020-04-28] MEDS: LevETIRAcetam 500 MG TABLET PO SCH ×2 (08:01→16:10)
[2020-04-28 08:15] LABS: CHOL/HDL RATIO 7.6 (4.2-7.3)
[2020-04-28 08:22] VITALS: BP 113/60
[2020-04-28] MEDS: ACETAMINOPHEN 325 MG TABLET PO PRN (12:41)
[2020-04-28 16:03] VITALS: BP 127/77
[2020-04-28] MEDS: QUEtiapine FUMARATE 200 MG TABLET PO SCH (20:04)
[2020-04-28] MEDS: LORazepam 2 MG TABLET PO PRN (21:17)
[2020-04-28] MEDS: IBUPROFEN 600 MG TABLET PO PRN (21:18)
[2020-04-29 03:36] VITALS: BP 124/67
[2020-04-29] MEDS: OMEGA-3/DHA/EPA/FISH OIL 1,000 MG CAPSULE PO SCH (08:58)
[2020-04-29] MEDS: LevETIRAcetam 500 MG TABLET PO SCH (08:58)
[2020-04-29] MEDS: LORazepam 2 MG TABLET PO PRN (12:31)
[2020-04-29 12:32] VITALS: BP 110/66
[2020-04-29] MEDS: IBUPROFEN 600 MG TABLET PO PRN (12:32)
== END 2020-04-29 16:15 | disposition home or self-care (01) | DRG 750 ==
LOC: EMS 00:48 → B3A 04:32
PROVIDERS: ADMIT Psychiatry & Neurology Child & Adolescent Psychiatry; ATTEND Psychiatry & Neurology Child & Adolescent Psychiatry
DX: F25.1 Schizoaffective disorder, depressive type (principal); J45.909 Unspecified asthma, uncomplicated; R45.851 Suicidal ideations; G47.00 Insomnia, unspecified; K59.00 Constipation, unspecified; F19.10 Other psychoactive substance abuse, uncomplicated; F41.9 Anxiety disorder, unspecified; F84.0 Autistic disorder; Z91.5 Personal history of self-harm; Z72.0 Tobacco use; Z03.818 Encounter for observation for suspected exposure to other biological agents ruled out
CPT/HCPCS: 87081; 87426; G0480

== ENCOUNTER 2020-04-30 19:28 | Emergency (ER) | payer MEDICAID ==
[~2020-04-30] VITALS: Ht 177.8 cm; Wt 109.1 kg
[2020-04-30 21:09] LABS: BASOPHILS % (AUTO) 0.5 % (0.0-2.0); EOSINOPHILS % (AUTO) 1.8 % (1.0-6.0); HEMATOCRIT 37.3 % (41-53); HEMOGLOBIN 12.9 g/dL (13.5-17.5); LYMPHOCYTES # (AUTO) 1.7 K/uL (1.0-4.8); LYMPHOCYTES % (AUTO) 28.9 % (22.0-44.0); MEAN CORPUSCULAR HEMOGLOBIN 31.5 pg (26.0-34.0); MEAN CORPUSCULAR HGB CONC 34.6 G/dL (31.0-37.0); MEAN CORPUSCULAR VOLUME 91 fL (80-100); MONOCYTES # (AUTO) 0.6 K/uL (0.1-1.0); MONOCYTES % (AUTO) 9.8 % (2.0-9.0); NEUTROPHILS # (AUTO) 3.6 K/uL (1.8-7.7); PLATELET COUNT (AUTO) 210 K/uL (150-450); RED BLOOD CELL COUNT(AUTO) 4.09 MIL/uL (4.50-5.90); RED CELL DISTRIBUTION WIDTH 12.6 % (11.5-14.5)
[2020-04-30 21:19] LABS: ANION GAP 11 mmol/L (8-16); CALCIUM, TOTAL 8.9 mg/dL (8.8-10.5); CARBON DIOXIDE 27 mmol/L (22-29); CHLORIDE 101 mmol/L (98-107); CREATININE 1.03 mg/dL (0.60-1.30); GLOMERULAR FILTR. RATE CALC > 60 mL/min (>60); GLUCOSE,RANDOM 124 mg/dL (70-110); POTASSIUM 4.2 mmol/L (3.5-5.1); SODIUM SERUM 139 mmol/L (136-145); UREA NITROGEN, BLOOD 19 mg/dL (7-18)
[2020-04-30 21:22] LABS: AMPHET/METH SCREEN,URINE NEGATIVE (NEGATIVE); BARBITURATE SCREEN, URINE NEGATIVE (NEGATIVE); BENZODIAZEPINES SCREEN,URINE NEGATIVE (NEGATIVE); CANNABINOID SCREEN,URINE NEGATIVE (NEGATIVE); COCAINE SCREEN,URINE NEGATIVE (NEGATIVE); METHADONE SCREEN, URINE NEGATIVE (NEGATIVE); OPIATE SCREEN,URINE NEGATIVE (NEGATIVE); PHENCYCLIDINE SCREEN,URINE NEGATIVE (NEGATIVE)
[2020-04-30 21:25] LABS: ALANINE AMINOTRANSFERASE 55 U/L (12-78); ALKALINE PHOSPHATASE 76 U/L (46-116); ASPARTATE AMINOTRANSFERASE 40 U/L (15-37); BILIRUBIN,TOTAL 0.2 mg/dL (0.1-1.0); TOTAL PROTEIN, SERUM 7.3 g/dL (6.4-8.2)
[2020-04-30 21:45] LABS: COVID AG,FIA SOURCE NASOPHARYNGEAL
[2020-04-30 22:30] VITALS: BP 133/73
== END 2020-04-30 23:25 | disposition home or self-care (01) ==
LOC: EMS 19:28
DX: F25.9 Schizoaffective disorder, unspecified (principal); F31.9 Bipolar disorder, unspecified; J45.909 Unspecified asthma, uncomplicated; Z79.899 Other long term (current) drug therapy; Z88.8 Allergy status to other drugs, medicaments and biological substances; Z20.828 Contact with and (suspected) exposure to other viral communicable diseases
CPT/HCPCS: 36415; 80053; 80307; 85025; 87426; 99285; G0480

== ENCOUNTER 2020-05-21 17:55 | Inpatient (IN) | payer MEDICAID, OTHER ==
[~2020-05-21] VITALS: Ht 172.7 cm; Wt 94.3 kg
[~2020-05-21 17:55] MED LIST changes: -OMEG-135 PO
[2020-05-21] MEDS ORDERED: DIVA-85 PO (18:33)
[2020-05-21] MEDS ORDERED: RISP0.5T39 PO (18:33)
[2020-05-21] MEDS ORDERED: ONDANSETRON HCL 4 MG TABLET PO ONE (18:45)
[2020-05-21 19:10] LABS: COVID AG,FIA SOURCE NASOPHARYNGEAL
[2020-05-21 19:23] LABS: AMPHET/METH SCREEN,URINE NEGATIVE (NEGATIVE); BARBITURATE SCREEN, URINE NEGATIVE (NEGATIVE); BENZODIAZEPINES SCREEN,URINE NEGATIVE (NEGATIVE); CANNABINOID SCREEN,URINE NEGATIVE (NEGATIVE); COCAINE SCREEN,URINE NEGATIVE (NEGATIVE); METHADONE SCREEN, URINE NEGATIVE (NEGATIVE); OPIATE SCREEN,URINE NEGATIVE (NEGATIVE)
[2020-05-21 19:28] LABS: BASOPHILS % (AUTO) 0.6 % (0.0-2.0); EOSINOPHILS % (AUTO) 7.3 % (1.0-6.0); HEMATOCRIT 35.2 % (41-53); HEMOGLOBIN 12.1 g/dL (13.5-17.5); LYMPHOCYTES # (AUTO) 1.6 K/uL (1.0-4.8); LYMPHOCYTES % (AUTO) 31.8 % (22.0-44.0); MEAN CORPUSCULAR HEMOGLOBIN 31.4 pg (26.0-34.0); MEAN CORPUSCULAR HGB CONC 34.5 G/dL (31.0-37.0); MEAN CORPUSCULAR VOLUME 91 fL (80-100); MONOCYTES # (AUTO) 0.4 K/uL (0.1-1.0); MONOCYTES % (AUTO) 7.8 % (2.0-9.0); NEUTROPHILS # (AUTO) 2.7 K/uL (1.8-7.7); NEUTROPHILS % (AUTO) 52.5 % (40.0-70.0); PLATELET COUNT (AUTO) 180 K/uL (150-450); RED BLOOD CELL COUNT(AUTO) 3.87 MIL/uL (4.50-5.90); RED CELL DISTRIBUTION WIDTH 12.9 % (11.5-14.5)
[2020-05-21 19:31] LABS: PHENCYCLIDINE SCREEN,URINE NEGATIVE (NEGATIVE)
[2020-05-21 19:40] LABS: ANION GAP 8 mmol/L (8-16); CALCIUM, TOTAL 8.3 mg/dL (8.8-10.5); CARBON DIOXIDE 28 mmol/L (22-29); CHLORIDE 103 mmol/L (98-107); CREATININE 0.87 mg/dL (0.60-1.30); GLOMERULAR FILTR. RATE CALC > 60 mL/min (>60); GLUCOSE,RANDOM 101 mg/dL (70-110); POTASSIUM 3.8 mmol/L (3.5-5.1); SODIUM SERUM 139 mmol/L (136-145); UREA NITROGEN, BLOOD 9 mg/dL (7-18)
[2020-05-21 19:46] LABS: ALANINE AMINOTRANSFERASE 37 U/L (12-78); ALBUMIN 3.6 g/dL (3.4-5.0); ALKALINE PHOSPHATASE 78 U/L (46-116); ASPARTATE AMINOTRANSFERASE 27 U/L (15-37); BILIRUBIN,TOTAL 0.1 mg/dL (0.1-1.0); VALPROIC ACID 42 mcg/mL (50-100)
[2020-05-21 20:30] LABS: SALICYLATE 0.7 mg/dL (2.8-20.0)
[2020-05-21 21:56] LABS: ACETAMINOPHEN < 2 mcg/mL (10-30)
[2020-05-22] MEDS ORDERED: ZOLPIDEM TARTRATE 10 MG TABLET PO PRN (00:30)
[2020-05-22] MEDS ORDERED: LORazepam 2 MG TABLET PO PRN (00:30)
[2020-05-22 01:33] VITALS: BP 127/88
[2020-05-22] MEDS ORDERED: PNEUMOCOCCAL VACCINE POLYVALENT 0.5 ML VIAL [PPSV23] IM ONE (01:45)
[2020-05-22] MEDS ORDERED: INFLUENZA VIRUS VACCINE QVS 2020-21 (6MO+)/PF 60 MCG/0.5 ML SYRINGE IM ONE (01:45)
[2020-05-22 14:22] VITALS: BP 128/60
[2020-05-22 16:00] VITALS: BP 124/76
[2020-05-22] MEDS: DIVALPROEX SODIUM 250 MG DR TABLET PO SCH (16:37)
[2020-05-22] MEDS ORDERED: MAGNESIUM HYDROXIDE SUSPENSION 30 ML UDCUP PO PRN (20:00)
[2020-05-22] MEDS ORDERED: DOCUSATE SODIUM 100 MG CAPSULE PO PRN (20:00)
[2020-05-22] MEDS ORDERED: ONDANSETRON HCL 4 MG TABLET PO PRN (20:00)
[2020-05-22] MEDS ORDERED: ALBUTEROL SULFATE HFA 90 MCG/PUFF 8 GM INHALER IH PRN (20:00)
[2020-05-22] MEDS ORDERED: LOPERAMIDE HCL 2 MG CAPSULE PO PRN (20:00)
[2020-05-22] MEDS ORDERED: MAG HYDROX/AL HYDROX/SIMETH ES 30 ML SUSPENSION UDCUP PO PRN (20:00)
[2020-05-22] MEDS ORDERED: CloNIDine HCL 0.1 MG TABLET PO PRN (20:00)
[2020-05-22] MEDS ORDERED: ACETAMINOPHEN 325 MG TABLET PO PRN (20:00)
[2020-05-22] MEDS ORDERED: BENZOCAINE/MENTHOL LOZENGE PO PRN (20:00)
[2020-05-22] MEDS ORDERED: PETROLATUM,WHITE 28 GM JELLY TP PRN (20:00)
[2020-05-22] MEDS ORDERED: OMEPRAZOLE 20 MG CAPSULE PO PRN (20:00)
[2020-05-22] MEDS ORDERED: BACITRACIN 28 GM OINTMENT TP PRN (20:00)
[2020-05-22] MEDS: QUEtiapine FUMARATE 200 MG TABLET PO SCH (20:22)
[2020-05-22] MEDS ORDERED: RisperiDONE 0.5 MG TABLET PO SCH (21:00)
[2020-05-23] MEDS: LevETIRAcetam 500 MG TABLET PO SCH ×2 (08:56→17:26)
[2020-05-23] MEDS: DIVALPROEX SODIUM 250 MG DR TABLET PO SCH ×2 (08:56→17:27)
[2020-05-23] MEDS: IBUPROFEN 600 MG TABLET PO PRN (13:47)
[2020-05-23] MEDS: OLANZapine 5 MG TABLET PO PRN (13:48)
[2020-05-23] MEDS ORDERED: TraZODone HCL 50 MG TABLET PO PRN (15:00)
[2020-05-23 17:00] VITALS: BP 101/48
[2020-05-23] MEDS: QUEtiapine FUMARATE 200 MG TABLET PO SCH (20:05)
[2020-05-24 08:50] VITALS: BP 126/57
[2020-05-24 08:51] VITALS: BP 126/56
[2020-05-24] MEDS: DIVALPROEX SODIUM 250 MG DR TABLET PO SCH ×2 (09:00→16:42)
[2020-05-24] MEDS: LevETIRAcetam 500 MG TABLET PO SCH ×2 (09:00→16:42)
[2020-05-24] MEDS: IBUPROFEN 600 MG TABLET PO PRN (13:53)
[2020-05-24 16:00] VITALS: BP 145/83
[2020-05-24] MEDS: QUEtiapine FUMARATE 200 MG TABLET PO SCH (20:09)
[2020-05-25] MEDS: LevETIRAcetam 500 MG TABLET PO SCH ×2 (09:31→16:27)
[2020-05-25] MEDS: DIVALPROEX SODIUM 250 MG DR TABLET PO SCH ×2 (09:31→16:27)
[2020-05-25] MEDS: IBUPROFEN 600 MG TABLET PO PRN (12:56)
[2020-05-25] MEDS: OLANZapine 5 MG TABLET PO PRN (16:33)
[2020-05-25 16:37] VITALS: BP 141/81
[2020-05-25] MEDS: QUEtiapine FUMARATE 200 MG TABLET PO SCH (20:07)
[2020-05-26 08:00] VITALS: BP 124/70
[2020-05-26] MEDS: OLANZapine 5 MG TABLET PO PRN (09:23)
[2020-05-26] MEDS: LevETIRAcetam 500 MG TABLET PO SCH (09:23)
[2020-05-26] MEDS: DIVALPROEX SODIUM 250 MG DR TABLET PO SCH (09:23)
[2020-05-26] MEDS ORDERED: DIVA-111 PO (13:39)
== END 2020-05-26 14:35 | disposition home or self-care (01) | DRG 750 ==
LOC: EMS 17:55 → 3EI 05-22 00:30 → EMS 05-22 01:12
PROVIDERS: ADMIT Psychiatry & Neurology Child & Adolescent Psychiatry; ATTEND Psychiatry & Neurology Child & Adolescent Psychiatry
DX: F25.1 Schizoaffective disorder, depressive type (principal); F41.9 Anxiety disorder, unspecified; J45.909 Unspecified asthma, uncomplicated; K76.9 Liver disease, unspecified; Z28.82 Immunization not carried out because of caregiver refusal; Z72.0 Tobacco use; F19.10 Other psychoactive substance abuse, uncomplicated; K59.00 Constipation, unspecified; Z03.818 Encounter for observation for suspected exposure to other biological agents ruled out
CPT/HCPCS: 87081; 87426; 93005; G0480; G0481; Q0162

== ENCOUNTER 2020-06-30 09:57 | Inpatient (IN) | payer MEDICAID ==
[~2020-06-30] VITALS: Ht 172.7 cm; Wt 97.3 kg
[~2020-06-30 09:57] MED LIST changes: +DIVA-111 PO
[2020-06-30] MEDS ORDERED: INFLUENZA VIRUS VACCINE QVS 2020-21 (6MO+)/PF 60 MCG/0.5 ML SYRINGE IM ONE (14:00)
[2020-06-30 21:19] VITALS: BP 133/88
[2020-07-01] MEDS ORDERED: PETROLATUM,WHITE 28 GM JELLY TP PRN (07:15)
[2020-07-01] MEDS ORDERED: LOPERAMIDE HCL 2 MG CAPSULE PO PRN (07:15)
[2020-07-01] MEDS ORDERED: GuaiFENesin/D-METHORPHAN [SUGAR-FREE] 200-20MG/10 ML SYRUP UDCUP PO PRN (07:15)
[2020-07-01] MEDS ORDERED: ALBUTEROL SULFATE HFA 90 MCG/PUFF 8 GM INHALER IH PRN (07:15)
[2020-07-01] MEDS ORDERED: NICOTINE 14 MG/24 HOUR PATCH TD PRN (07:15)
[2020-07-01] MEDS ORDERED: MAG HYDROX/AL HYDROX/SIMETH ES 30 ML SUSPENSION UDCUP PO PRN (07:15)
[2020-07-01] MEDS ORDERED: CloNIDine HCL 0.1 MG TABLET PO PRN (07:15)
[2020-07-01] MEDS ORDERED: DOCUSATE SODIUM 100 MG CAPSULE PO PRN (07:15)
[2020-07-01] MEDS ORDERED: MAGNESIUM HYDROXIDE SUSPENSION 30 ML UDCUP PO PRN (07:15)
[2020-07-01] MEDS ORDERED: ACETAMINOPHEN 325 MG TABLET PO PRN (07:15)
[2020-07-01] MEDS ORDERED: ONDANSETRON HCL 4 MG TABLET PO PRN (07:15)
[2020-07-01 08:09] VITALS: BP 129/82
[2020-07-01] MEDS: LevETIRAcetam 500 MG TABLET PO SCH ×2 (10:05→16:00)
[2020-07-01] MEDS: IBUPROFEN 400 MG TABLET PO PRN (11:35)
[2020-07-01] MEDS ORDERED: QUEtiapine FUMARATE 25 MG TABLET PO PRN (14:45)
[2020-07-01] MEDS: DIVALPROEX SODIUM 250 MG DR TABLET PO SCH (16:00)
[2020-07-01 16:05] VITALS: BP 132/86
[2020-07-01] MEDS: QUEtiapine FUMARATE 200 MG TABLET PO SCH (20:33)
[2020-07-02 00:19] VITALS: BP 130/82
[2020-07-02 08:01] VITALS: BP 135/85
[2020-07-02] MEDS: DIVALPROEX SODIUM 250 MG DR TABLET PO SCH ×3 (08:48→16:11)
[2020-07-02] MEDS: LevETIRAcetam 500 MG TABLET PO SCH ×3 (08:48→16:11)
[2020-07-02 16:11] VITALS: BP 134/71
[2020-07-02] MEDS: BACITRACIN 28 GM OINTMENT TP SCH (20:46)
[2020-07-02] MEDS: QUEtiapine FUMARATE 200 MG TABLET PO SCH (20:46)
[2020-07-03 00:38] VITALS: BP 132/79
[2020-07-03 08:07] VITALS: BP 131/78
[2020-07-03] MEDS: LevETIRAcetam 500 MG TABLET PO SCH (08:07)
[2020-07-03] MEDS: DIVALPROEX SODIUM 250 MG DR TABLET PO SCH (08:07)
[2020-07-03] MEDS: BACITRACIN 28 GM OINTMENT TP SCH (08:07)
[2020-07-03] MEDS: IBUPROFEN 400 MG TABLET PO PRN (09:02)
== END 2020-07-03 11:30 | disposition home or self-care (01) | DRG 750 ==
LOC: B2S 12:18
PROVIDERS: ATTEND Psychiatry & Neurology Child & Adolescent Psychiatry
DX: F25.1 Schizoaffective disorder, depressive type (principal); E66.3 Overweight; E78.5 Hyperlipidemia, unspecified; F22 Delusional disorders; G40.909 Epilepsy, unspecified, not intractable, without status epilepticus; I10 Essential (primary) hypertension; J44.9 Chronic obstructive pulmonary disease, unspecified; R45.851 Suicidal ideations; F41.9 Anxiety disorder, unspecified; Z28.21 Immunization not carried out because of patient refusal; Z68.32 Body mass index [BMI] 32.0-32.9, adult; Z88.8 Allergy status to other drugs, medicaments and biological substances; Z91.018 Allergy to other foods; Z79.899 Other long term (current) drug therapy
CPT/HCPCS: Z7610

== ENCOUNTER 2020-10-16 01:15 | Inpatient (IN) | payer MEDICAID ==
[~2020-10-16] VITALS: Ht 175.3 cm; Wt 98.0 kg
[2020-10-16 15:01] VITALS: BP 151/82
[2020-10-16] MEDS: DIVALPROEX SODIUM 250 MG DR TABLET PO SCH (17:00)
[2020-10-16] MEDS ORDERED: PNEUMOCOCCAL VACCINE POLYVALENT 0.5 ML VIAL [PPSV23] IM ONE (18:15)
[2020-10-16] MEDS: LevETIRAcetam 500 MG TABLET PO SCH (20:34)
[2020-10-17 01:36] VITALS: BP 141/69
[2020-10-17 07:20] LABS: BASOPHILS % (AUTO) 0.3 % (0.0-2.0); EOSINOPHILS % (AUTO) 2.9 % (1.0-6.0); HEMATOCRIT 40.5 % (41-53); HEMOGLOBIN 13.7 g/dL (13.5-17.5); LYMPHOCYTES # (AUTO) 1.4 K/uL (1.0-4.8); LYMPHOCYTES % (AUTO) 27.3 % (22.0-44.0); MEAN CORPUSCULAR HEMOGLOBIN 30.8 pg (26.0-34.0); MEAN CORPUSCULAR HGB CONC 33.8 G/dL (31.0-37.0); MEAN CORPUSCULAR VOLUME 91 fL (80-100); MONOCYTES # (AUTO) 0.5 K/uL (0.1-1.0); NEUTROPHILS # (AUTO) 3.1 K/uL (1.8-7.7); NEUTROPHILS % (AUTO) 59.5 % (40.0-70.0); PLATELET COUNT (AUTO) 200 K/uL (150-450); RED BLOOD CELL COUNT(AUTO) 4.45 MIL/uL (4.50-5.90); RED CELL DISTRIBUTION WIDTH 13.4 % (11.5-14.5)
[2020-10-17 07:36] LABS: HEMOGLOBIN A1C 5.5 % (3.8-5.6)
[2020-10-17 07:47] LABS: ALANINE AMINOTRANSFERASE 45 U/L (12-78); ALBUMIN 3.8 g/dL (3.4-5.0); ALKALINE PHOSPHATASE 64 U/L (46-116); ANION GAP 11 mmol/L (8-16); ASPARTATE AMINOTRANSFERASE 32 U/L (15-37); BILIRUBIN,TOTAL 0.3 mg/dL (0.1-1.0); CALCIUM, TOTAL 8.6 mg/dL (8.8-10.5); CARBON DIOXIDE 29 mmol/L (22-29); CHLORIDE 102 mmol/L (98-107); CHOL/HDL RATIO 5.8 (4.2-7.3); CHOLESTEROL 173 mg/dL (131-200); CREATININE 0.77 mg/dL (0.60-1.30); FREE T4 (FREE THYROXINE) 0.66 ng/dL (0.76-1.46); GLOMERULAR FILTR. RATE CALC > 60 mL/min (>60); GLUCOSE,RANDOM 92 mg/dL (70-110); HDL CHOLESTEROL 30 mg/dL (40-60); LDL CHOL (CALC.) 106 mg/dL (0-130); POTASSIUM 4.9 mmol/L (3.5-5.1); SODIUM SERUM 142 mmol/L (136-145); TOTAL PROTEIN, SERUM 7.6 g/dL (6.4-8.2); TRIGLYCERIDES 187 mg/dL (15-150); UREA NITROGEN, BLOOD 18 mg/dL (7-18); VALPROIC ACID 49 mcg/mL (50-100)
[2020-10-17] MEDS ORDERED: DOCUSATE SODIUM 100 MG CAPSULE PO PRN (08:00)
[2020-10-17] MEDS ORDERED: ACETAMINOPHEN 325 MG TABLET PO PRN (08:00)
[2020-10-17] MEDS ORDERED: ALBUTEROL SULFATE HFA 90 MCG/PUFF 8 GM INHALER IH PRN (08:00)
[2020-10-17] MEDS ORDERED: NICOTINE 14 MG/24 HOUR PATCH TD PRN (08:00)
[2020-10-17] MEDS ORDERED: MAG HYDROX/AL HYDROX/SIMETH ES 30 ML SUSPENSION UDCUP PO PRN (08:00)
[2020-10-17] MEDS ORDERED: ONDANSETRON HCL 4 MG TABLET PO PRN (08:00)
[2020-10-17] MEDS ORDERED: CloNIDine HCL 0.1 MG TABLET PO PRN (08:00)
[2020-10-17] MEDS ORDERED: GuaiFENesin/D-METHORPHAN [SUGAR-FREE] 200-20MG/10 ML SYRUP UDCUP PO PRN (08:00)
[2020-10-17] MEDS ORDERED: LOPERAMIDE HCL 2 MG CAPSULE PO PRN (08:00)
[2020-10-17] MEDS ORDERED: MAGNESIUM HYDROXIDE SUSPENSION 30 ML UDCUP PO PRN (08:00)
[2020-10-17] MEDS ORDERED: PETROLATUM,WHITE 28 GM JELLY TP PRN (08:00)
[2020-10-17] MEDS: DIVALPROEX SODIUM 250 MG DR TABLET PO SCH (08:47)
[2020-10-17] MEDS: LevETIRAcetam 500 MG TABLET PO SCH ×2 (08:47→16:30)
[2020-10-17 09:40] VITALS: BP 130/78
[2020-10-17 16:19] VITALS: BP 124/72
[2020-10-17] MEDS: DIVALPROEX SODIUM 500 MG DR TABLET PO SCH (16:30)
[2020-10-17] MEDS: TraZODone HCL 50 MG TABLET PO SCH (20:31)
[2020-10-18 06:43] VITALS: BP 120/78
[2020-10-18] MEDS: OMEGA-3/DHA/EPA/FISH OIL 1,000 MG CAPSULE PO SCH (09:48)
[2020-10-18] MEDS: LevETIRAcetam 500 MG TABLET PO SCH ×2 (09:48→16:25)
[2020-10-18] MEDS: DIVALPROEX SODIUM 500 MG DR TABLET PO SCH ×2 (09:48→16:25)
[2020-10-18] MEDS: IBUPROFEN 400 MG TABLET PO PRN (12:47)
[2020-10-18 16:10] VITALS: BP 129/84
[2020-10-18] MEDS: TraZODone HCL 50 MG TABLET PO SCH (20:05)
[2020-10-19 00:24] VITALS: BP 114/65
[2020-10-19] MEDS: OMEGA-3/DHA/EPA/FISH OIL 1,000 MG CAPSULE PO SCH (10:12)
[2020-10-19] MEDS: LevETIRAcetam 500 MG TABLET PO SCH ×2 (10:12→16:27)
[2020-10-19] MEDS: DIVALPROEX SODIUM 500 MG DR TABLET PO SCH ×2 (10:12→16:27)
[2020-10-19 12:21] VITALS: BP 139/90
[2020-10-19 16:15] VITALS: BP 119/73
[2020-10-19] MEDS: TraZODone HCL 50 MG TABLET PO SCH (20:01)
[2020-10-19] MEDS: IBUPROFEN 400 MG TABLET PO PRN (20:03)
[2020-10-20 02:15] VITALS: BP 120/77
[2020-10-20 08:17] VITALS: BP 130/66
[2020-10-20] MEDS: LevETIRAcetam 500 MG TABLET PO SCH (08:20)
[2020-10-20] MEDS: OMEGA-3/DHA/EPA/FISH OIL 1,000 MG CAPSULE PO SCH (08:20)
[2020-10-20] MEDS: DIVALPROEX SODIUM 500 MG DR TABLET PO SCH (08:20)
[2020-10-20] MEDS: IBUPROFEN 400 MG TABLET PO PRN (12:06)
[2020-10-20] MEDS ORDERED: DIVA-112 PO (12:47)
[2020-10-20] MEDS ORDERED: TRAZ150 PO (12:48)
[2020-10-20] MEDS ORDERED: OMEG100033 PO (12:49)
[2020-10-20] MEDS ORDERED: PALI234D IM (12:50)
[2020-10-20] MEDS ORDERED: PALIPERIDONE PALMITATE 234 MG/1.5 ML SYRINGE IM ONE (16:00)
== END 2020-10-20 16:15 | disposition home or self-care (01) | DRG 750 ==
LOC: B2S 01:15 → UNDOADMIN 01:15 → B2S 14:15
PROVIDERS: ADMIT Psychiatry & Neurology Child & Adolescent Psychiatry; ATTEND Psychiatry & Neurology Child & Adolescent Psychiatry
DX: F25.1 Schizoaffective disorder, depressive type (principal); F31.4 Bipolar disorder, current episode depressed, severe, without psychotic features; F84.0 Autistic disorder; G40.909 Epilepsy, unspecified, not intractable, without status epilepticus; J44.9 Chronic obstructive pulmonary disease, unspecified; I10 Essential (primary) hypertension; D64.9 Anemia, unspecified; R62.50 Unspecified lack of expected normal physiological development in childhood; Z88.0 Allergy status to penicillin; Z91.018 Allergy to other foods
CPT/HCPCS: 83036; 84436; 84439; 84443; 86592

== ENCOUNTER 2020-11-25 15:21 | Inpatient (IN) | payer MEDICAID ==
[~2020-11-25] VITALS: Ht 170.2 cm; Wt 97.1 kg
[~2020-11-25 15:21] MED LIST changes: -DIVA-111 PO; +DIVA-112 PO; +OMEG100033 PO; +PALI234D IM; -QUET200T PO; +TRAZ150 PO
[2020-11-25] MEDS ORDERED: HydrOXYzine PAMOATE 50 MG CAPSULE PO PRN (16:15)
[2020-11-25] MEDS ORDERED: MAG HYDROX/AL HYDROX/SIMETH ES 30 ML SUSPENSION UDCUP PO PRN (16:15)
[2020-11-25] MEDS ORDERED: PROMETHAZINE HCL 25 MG TABLET PO PRN (16:15)
[2020-11-25] MEDS ORDERED: DIAZEPAM 10 MG TABLET PO PRN (16:15)
[2020-11-25] MEDS ORDERED: LOPERAMIDE HCL 2 MG CAPSULE PO PRN (16:15)
[2020-11-25] MEDS ORDERED: TUBERCULIN, PURIFIED PROTEIN DERIVATIVE 5 TU/0.1 ML SYRINGE ID ONE (16:15)
[2020-11-25] MEDS ORDERED: MAGNESIUM HYDROXIDE SUSPENSION 30 ML UDCUP PO PRN (16:15)
[2020-11-25] MEDS ORDERED: QUEtiapine FUMARATE 100 MG TABLET PO PRN (16:15)
[2020-11-25] MEDS ORDERED: GuaiFENesin/D-METHORPHAN [SUGAR-FREE] 200-20MG/10 ML SYRUP UDCUP PO PRN (16:15)
[2020-11-25] MEDS ORDERED: PALIPERIDONE PALMITATE 234 MG/1.5 ML SYRINGE IM ONE (16:15)
[2020-11-25] MEDS ORDERED: ACETAMINOPHEN 325 MG TABLET PO PRN (16:15)
[2020-11-25] MEDS ORDERED: ESZOPICLONE 2 MG TABLET PO PRN (19:00)
[2020-11-25] MEDS ORDERED: PNEUMOCOCCAL VACCINE POLYVALENT 0.5 ML VIAL [PPSV23] IM. ONE (19:00)
[2020-11-25 19:14] VITALS: BP 141/71
[2020-11-25] MEDS ORDERED: QUEtiapine FUMARATE 200 MG TABLET PO SCH (21:00)
[2020-11-25] MEDS ORDERED: DIVALPROEX SODIUM 500 MG ER TABLET PO SCH (21:00)
[2020-11-25] MEDS: MELATONIN 5 MG TABLET PO SCH (21:21)
[2020-11-25] MEDS: GABAPENTIN 300 MG CAPSULE PO SCH (21:21)
[2020-11-25] MEDS: THIAMINE 100 MG TABLET PO SCH (21:22)
[2020-11-25] MEDS ORDERED: CloNIDine HCL 0.1 MG TABLET PO PRN (23:30)
[2020-11-26] MEDS: FOLIC ACID 1 MG TABLET PO SCH (08:57)
[2020-11-26] MEDS: LevETIRAcetam 500 MG TABLET PO SCH ×2 (08:57→16:06)
[2020-11-26] MEDS: OMEGA-3/DHA/EPA/FISH OIL 1,000 MG CAPSULE PO SCH (08:57)
[2020-11-26] MEDS: THIAMINE 100 MG TABLET PO SCH ×2 (08:58→16:06)
[2020-11-26] MEDS: NALTREXONE HCL 50 MG TABLET PO SCH (08:58)
[2020-11-26] MEDS: GABAPENTIN 300 MG CAPSULE PO SCH ×4 (08:58→20:10)
[2020-11-26] MEDS: MULTIVITAMINS WITH MINERALS, THERAPEUTIC TABLET PO SCH (08:58)
[2020-11-26] MEDS ORDERED: DULoxetine HCL 20 MG CAPSULE PO SCH (09:00)
[2020-11-26] MEDS: DIVALPROEX SODIUM 500 MG ER TABLET PO SCH (16:09)
[2020-11-26 16:11] VITALS: BP 136/71
[2020-11-26] MEDS: QUEtiapine FUMARATE 200 MG TABLET PO SCH (20:10)
[2020-11-26] MEDS: MELATONIN 5 MG TABLET PO SCH (20:10)
[2020-11-26] MEDS: TraZODone HCL 150 MG TABLET PO SCH (20:13)
[2020-11-27 00:22] VITALS: BP 110/65
[2020-11-27 07:48] LABS: BASOPHILS % (AUTO) 0.5 % (0.0-2.0); EOSINOPHILS % (AUTO) 2.1 % (1.0-6.0); HEMATOCRIT 38.7 % (41-53); HEMOGLOBIN 13.2 g/dL (13.5-17.5); LYMPHOCYTES # (AUTO) 1.4 K/uL (1.0-4.8); LYMPHOCYTES % (AUTO) 23.9 % (22.0-44.0); MEAN CORPUSCULAR HEMOGLOBIN 30.9 pg (26.0-34.0); MEAN CORPUSCULAR VOLUME 91 fL (80-100); MONOCYTES # (AUTO) 0.5 K/uL (0.1-1.0); MONOCYTES % (AUTO) 8.6 % (2.0-9.0); NEUTROPHILS # (AUTO) 3.8 K/uL (1.8-7.7); NEUTROPHILS % (AUTO) 64.9 % (40.0-70.0); PLATELET COUNT (AUTO) 201 K/uL (150-450); RED BLOOD CELL COUNT(AUTO) 4.26 MIL/uL (4.50-5.90); RED CELL DISTRIBUTION WIDTH 13.2 % (11.5-14.5)
[2020-11-27 08:10] LABS: ALANINE AMINOTRANSFERASE 51 U/L (12-78); ALBUMIN 3.9 g/dL (3.4-5.0); ALKALINE PHOSPHATASE 67 U/L (46-116); ANION GAP 8 mmol/L (8-16); ASPARTATE AMINOTRANSFERASE 33 U/L (15-37); BILIRUBIN,TOTAL 0.3 mg/dL (0.1-1.0); CALCIUM, TOTAL 8.2 mg/dL (8.8-10.5); CARBON DIOXIDE 28 mmol/L (22-29); CHLORIDE 100 mmol/L (98-107); CHOL/HDL RATIO 6.6 (4.2-7.3); CHOLESTEROL 198 mg/dL (131-200); CREATININE 0.87 mg/dL (0.60-1.30); GLOMERULAR FILTR. RATE CALC > 60 mL/min (>60); GLUCOSE,RANDOM 105 mg/dL (70-110); HDL CHOLESTEROL 30 mg/dL (40-60); LDL CHOL (CALC.) 127 mg/dL (0-130); POTASSIUM 4.2 mmol/L (3.5-5.1); SODIUM SERUM 136 mmol/L (136-145); THYROID STIMULATING HORMONE 6.01 uIU/mL (0.36-3.74); TOTAL PROTEIN, SERUM 7.1 g/dL (6.4-8.2); TRIGLYCERIDES 205 mg/dL (15-150); UREA NITROGEN, BLOOD 19 mg/dL (7-18); VALPROIC ACID 31 mcg/mL (50-100)
[2020-11-27 08:26] VITALS: BP 136/79
[2020-11-27 08:44] LABS: HEMOGLOBIN A1C 5.8 % (3.8-5.6)
[2020-11-27] MEDS: THIAMINE 100 MG TABLET PO SCH ×2 (08:57→16:12)
[2020-11-27] MEDS: MULTIVITAMINS WITH MINERALS, THERAPEUTIC TABLET PO SCH (08:58)
[2020-11-27] MEDS: GABAPENTIN 300 MG CAPSULE PO SCH ×4 (08:58→20:04)
[2020-11-27] MEDS: NALTREXONE HCL 50 MG TABLET PO SCH (08:58)
[2020-11-27] MEDS: OMEGA-3/DHA/EPA/FISH OIL 1,000 MG CAPSULE PO SCH (08:58)
[2020-11-27] MEDS: SERTRALINE HCL 50 MG TABLET PO SCH (08:58)
[2020-11-27] MEDS: FOLIC ACID 1 MG TABLET PO SCH (08:58)
[2020-11-27] MEDS: DIVALPROEX SODIUM 500 MG ER TABLET PO SCH ×3 (08:58→16:12)
[2020-11-27] MEDS: LevETIRAcetam 500 MG TABLET PO SCH ×2 (08:58→16:12)
[2020-11-27] MEDS ORDERED: DIVA-80 PO (14:28)
[2020-11-27] MEDS ORDERED: SERT-439 PO (14:28)
[2020-11-27] MEDS ORDERED: TRAZ150 PO (14:28)
[2020-11-27] MEDS ORDERED: MELA5TAB3 PO (14:28)
[2020-11-27] MEDS ORDERED: GABA-1181 PO (14:28)
[2020-11-27] MEDS ORDERED: LEVE500T53 PO (14:28)
[2020-11-27] MEDS ORDERED: QUET200T29 PO (14:28)
[2020-11-27 16:16] VITALS: BP 126/81
[2020-11-27] MEDS: QUEtiapine FUMARATE 200 MG TABLET PO SCH (20:04)
[2020-11-27] MEDS: TraZODone HCL 150 MG TABLET PO SCH (20:04)
[2020-11-27] MEDS: MELATONIN 5 MG TABLET PO SCH (20:04)
[2020-11-28 03:51] VITALS: BP 137/76
[2020-11-28] MEDS ORDERED: LEVE500T53 PO (08:11)
[2020-11-28] MEDS ORDERED: SERT-158 PO (08:11)
[2020-11-28] MEDS ORDERED: NALT50TA6 PO (08:11)
[2020-11-28] MEDS: SERTRALINE HCL 50 MG TABLET PO SCH (08:12)
[2020-11-28] MEDS: LevETIRAcetam 500 MG TABLET PO SCH (08:12)
[2020-11-28] MEDS: GABAPENTIN 300 MG CAPSULE PO SCH (08:12)
[2020-11-28] MEDS: FOLIC ACID 1 MG TABLET PO SCH (08:12)
[2020-11-28] MEDS: MULTIVITAMINS WITH MINERALS, THERAPEUTIC TABLET PO SCH (08:12)
[2020-11-28] MEDS ORDERED: GABA-1181 PO (08:12)
[2020-11-28] MEDS: OMEGA-3/DHA/EPA/FISH OIL 1,000 MG CAPSULE PO SCH (08:12)
[2020-11-28] MEDS ORDERED: QUET200T PO (08:12)
[2020-11-28] MEDS: DIVALPROEX SODIUM 500 MG ER TABLET PO SCH (08:12)
[2020-11-28] MEDS: NALTREXONE HCL 50 MG TABLET PO SCH (08:12)
[2020-11-28] MEDS ORDERED: TRAZ150 PO (08:12)
[2020-11-28] MEDS: THIAMINE 100 MG TABLET PO SCH (08:12)
[2020-11-28] MEDS ORDERED: DIVA-80 PO (08:13)
[2020-11-28 08:49] VITALS: BP 145/85
[2020-11-29] MEDS ORDERED: PALIPERIDONE PALMITATE 156 MG/ML SYRINGE IM ONE (09:00)
== END 2020-11-28 09:20 | disposition home or self-care (01) | DRG 750 ==
LOC: B2S 18:53
PROVIDERS: ADMIT Psychiatry & Neurology Psychiatry; ATTEND Psychiatry & Neurology Psychiatry
DX: F25.9 Schizoaffective disorder, unspecified (principal); F70 Mild intellectual disabilities; G89.29 Other chronic pain; M25.561 Pain in right knee; K21.9 Gastro-esophageal reflux disease without esophagitis; Z88.8 Allergy status to other drugs, medicaments and biological substances; Z87.891 Personal history of nicotine dependence; Z90.49 Acquired absence of other specified parts of digestive tract; Z55.9 Problems related to education and literacy, unspecified; Z59.9 Problem related to housing and economic circumstances, unspecified; Z65.3 Problems related to other legal circumstances
CPT/HCPCS: 80053; 80061; 80164; 83036; 84439; 84443; 85025; 86592; 90732; A9575

== ENCOUNTER 2020-12-29 16:19 | Inpatient (IN) | payer MEDICAID ==
[~2020-12-29] VITALS: Ht 170.2 cm; Wt 98.2 kg
[~2020-12-29 16:19] MED LIST changes: -DIVA-112 PO; +DIVA-80 PO; +GABA-1181 PO; +NALT50TA6 PO; -OMEG100033 PO; -PALI234D IM; +QUET200T PO; +SERT-158 PO
[2020-12-29 21:15] VITALS: BP 156/87
[2020-12-29] MEDS ORDERED: RISP2TAB45 PO (21:20)
[2020-12-29] MEDS ORDERED: HYD50 PO (21:20)
[2020-12-29] MEDS ORDERED: LITH300C3 PO (21:20)
[2020-12-29] MEDS ORDERED: PALI234D IM (21:27)
[2020-12-29] MEDS ORDERED: -PHARMACY VACCINE NOTE- MISC ONE (21:30)
[2020-12-29] MEDS ORDERED: CloNIDine HCL 0.1 MG TABLET PO PRN (23:15)
[2020-12-30] MEDS ORDERED: PROMETHAZINE HCL 25 MG TABLET PO PRN (07:45)
[2020-12-30] MEDS ORDERED: MAG HYDROX/AL HYDROX/SIMETH ES 30 ML SUSPENSION UDCUP PO PRN ×2 (07:45)
[2020-12-30] MEDS ORDERED: ALBUTEROL SULFATE HFA 90 MCG/PUFF 8 GM INHALER IH PRN (07:45)
[2020-12-30] MEDS ORDERED: CloNIDine HCL 0.1 MG TABLET PO PRN (07:45)
[2020-12-30] MEDS ORDERED: ACETAMINOPHEN 325 MG TABLET PO PRN ×2 (07:45)
[2020-12-30] MEDS ORDERED: GuaiFENesin/D-METHORPHAN [SUGAR-FREE] 200-20MG/10 ML SYRUP UDCUP PO PRN ×2 (07:45)
[2020-12-30] MEDS ORDERED: PETROLATUM,WHITE 28 GM JELLY TP PRN (07:45)
[2020-12-30] MEDS ORDERED: DOCUSATE SODIUM 100 MG CAPSULE PO PRN (07:45)
[2020-12-30] MEDS ORDERED: LOPERAMIDE HCL 2 MG CAPSULE PO PRN ×2 (07:45)
[2020-12-30] MEDS ORDERED: PALIPERIDONE PALMITATE 234 MG/1.5 ML SYRINGE IM ONE (07:45)
[2020-12-30] MEDS ORDERED: ONDANSETRON HCL 4 MG TABLET PO PRN (07:45)
[2020-12-30] MEDS ORDERED: NICOTINE 14 MG/24 HOUR PATCH TD PRN (07:45)
[2020-12-30] MEDS ORDERED: MAGNESIUM HYDROXIDE SUSPENSION 30 ML UDCUP PO PRN ×2 (07:45)
[2020-12-30] MEDS ORDERED: QUEtiapine FUMARATE 100 MG TABLET PO PRN (07:45)
[2020-12-30 08:23] VITALS: BP 117/69
[2020-12-30] MEDS: OMEGA-3/DHA/EPA/FISH OIL 1,000 MG CAPSULE PO SCH (08:58)
[2020-12-30] MEDS: DIVALPROEX SODIUM 500 MG ER TABLET PO SCH ×3 (08:58→16:31)
[2020-12-30] MEDS: LevETIRAcetam 500 MG TABLET PO SCH ×2 (08:59→16:32)
[2020-12-30] MEDS: MULTIVITAMINS WITH MINERALS, THERAPEUTIC TABLET PO SCH (08:59)
[2020-12-30] MEDS: THIAMINE 100 MG TABLET PO SCH ×2 (08:59→16:31)
[2020-12-30] MEDS: FOLIC ACID 1 MG TABLET PO SCH (08:59)
[2020-12-30] MEDS: NALTREXONE HCL 50 MG TABLET PO SCH (09:54)
[2020-12-30] MEDS: IBUPROFEN 400 MG TABLET PO PRN ×2 (11:26→20:19)
[2020-12-30 16:45] VITALS: BP 148/85
[2020-12-30] MEDS: MELATONIN 5 MG TABLET PO SCH (20:22)
[2020-12-30] MEDS ORDERED: QUEtiapine FUMARATE 200 MG TABLET PO SCH (21:00)
[2020-12-31 04:56] VITALS: BP 134/81
[2020-12-31 07:27] LABS: BASOPHILS % (AUTO) 0.3 % (0.0-2.0); EOSINOPHILS % (AUTO) 1.7 % (1.0-6.0); HEMATOCRIT 38.2 % (41-53); LYMPHOCYTES # (AUTO) 1.8 K/uL (1.0-4.8); LYMPHOCYTES % (AUTO) 25.3 % (22.0-44.0); MEAN CORPUSCULAR HEMOGLOBIN 31.3 pg (26.0-34.0); MEAN CORPUSCULAR VOLUME 92 fL (80-100); MONOCYTES # (AUTO) 0.6 K/uL (0.1-1.0); MONOCYTES % (AUTO) 8.7 % (2.0-9.0); NEUTROPHILS # (AUTO) 4.7 K/uL (1.8-7.7); PLATELET COUNT (AUTO) 221 K/uL (150-450); RED BLOOD CELL COUNT(AUTO) 4.15 MIL/uL (4.50-5.90)
[2020-12-31 07:39] LABS: HEMOGLOBIN A1C 5.2 % (3.8-5.6)
[2020-12-31 07:46] LABS: ALANINE AMINOTRANSFERASE 59 U/L (12-78); ALBUMIN 3.8 g/dL (3.4-5.0); ALKALINE PHOSPHATASE 80 U/L (46-116); ANION GAP 9 mmol/L (8-16); ASPARTATE AMINOTRANSFERASE 44 U/L (15-37); BILIRUBIN,TOTAL 0.4 mg/dL (0.1-1.0); CALCIUM, TOTAL 8.2 mg/dL (8.8-10.5); CARBON DIOXIDE 27 mmol/L (22-29); CHLORIDE 101 mmol/L (98-107); CREATININE 0.73 mg/dL (0.60-1.30); FREE T4 (FREE THYROXINE) 0.89 ng/dL (0.76-1.46); GLOMERULAR FILTR. RATE CALC > 60 mL/min (>60); GLUCOSE,RANDOM 98 mg/dL (70-110); POTASSIUM 4.4 mmol/L (3.5-5.1); SODIUM SERUM 137 mmol/L (136-145); TOTAL PROTEIN, SERUM 7.7 g/dL (6.4-8.2); UREA NITROGEN, BLOOD 26 mg/dL (7-18)
[2020-12-31 08:08] LABS: THYROID STIMULATING HORMONE 7.47 uIU/mL (0.36-3.74)
[2020-12-31 08:57] VITALS: BP 140/82
[2020-12-31] MEDS: THIAMINE 100 MG TABLET PO SCH ×2 (10:43→20:49)
[2020-12-31] MEDS: DIVALPROEX SODIUM 500 MG ER TABLET PO SCH ×3 (10:43→20:49)
[2020-12-31] MEDS: MULTIVITAMINS WITH MINERALS, THERAPEUTIC TABLET PO SCH (10:43)
[2020-12-31] MEDS: FOLIC ACID 1 MG TABLET PO SCH (10:43)
[2020-12-31] MEDS: LevETIRAcetam 500 MG TABLET PO SCH ×2 (10:43→20:49)
[2020-12-31] MEDS: NALTREXONE HCL 50 MG TABLET PO SCH (10:43)
[2020-12-31] MEDS: OMEGA-3/DHA/EPA/FISH OIL 1,000 MG CAPSULE PO SCH (10:43)
[2020-12-31] MEDS ORDERED: ZIPRASIDONE MESYLATE 20 MG/VIAL IM ONE (15:00)
[2020-12-31 16:12] VITALS: BP 135/85
[2020-12-31] MEDS: MELATONIN 5 MG TABLET PO SCH (20:50)
[2020-12-31] MEDS ORDERED: QUEtiapine FUMARATE 200 MG TABLET PO SCH (21:00)
[2021-01-01 01:20] VITALS: BP 139/80
[2021-01-01] MEDS: DIVALPROEX SODIUM 500 MG ER TABLET PO SCH ×4 (08:24→16:08)
[2021-01-01] MEDS: THIAMINE 100 MG TABLET PO SCH ×3 (08:24→16:08)
[2021-01-01] MEDS: LevETIRAcetam 500 MG TABLET PO SCH ×3 (08:24→16:08)
[2021-01-01] MEDS: FOLIC ACID 1 MG TABLET PO SCH ×2 (08:24→09:00)
[2021-01-01] MEDS: OMEGA-3/DHA/EPA/FISH OIL 1,000 MG CAPSULE PO SCH ×2 (08:24→09:00)
[2021-01-01] MEDS: MULTIVITAMINS WITH MINERALS, THERAPEUTIC TABLET PO SCH ×2 (08:24→09:00)
[2021-01-01] MEDS: NALTREXONE HCL 50 MG TABLET PO SCH ×2 (08:24→09:00)
[2021-01-01 10:01] VITALS: BP 135/76
[2021-01-01 16:33] VITALS: BP 132/78
[2021-01-01] MEDS: MELATONIN 5 MG TABLET PO SCH (20:20)
[2021-01-01] MEDS ORDERED: QUEtiapine FUMARATE 300 MG TABLET PO SCH (21:00)
[2021-01-02 01:53] VITALS: BP 137/82
[2021-01-02] MEDS: NALTREXONE HCL 50 MG TABLET PO SCH (08:04)
[2021-01-02] MEDS: OMEGA-3/DHA/EPA/FISH OIL 1,000 MG CAPSULE PO SCH (08:04)
[2021-01-02] MEDS: THIAMINE 100 MG TABLET PO SCH (08:04)
[2021-01-02] MEDS: DIVALPROEX SODIUM 500 MG ER TABLET PO SCH (08:04)
[2021-01-02] MEDS: FOLIC ACID 1 MG TABLET PO SCH (08:04)
[2021-01-02] MEDS: MULTIVITAMINS WITH MINERALS, THERAPEUTIC TABLET PO SCH (08:04)
[2021-01-02] MEDS: LevETIRAcetam 500 MG TABLET PO SCH (08:04)
[2021-01-02] MEDS ORDERED: LEVE500T53 PO (08:13)
[2021-01-02] MEDS ORDERED: MELA5TAB3 PO (08:13)
[2021-01-02] MEDS ORDERED: DIVA-80 PO (08:13)
[2021-01-02] MEDS ORDERED: PALI117D IM (08:13)
[2021-01-02] MEDS ORDERED: NALT50TA PO (08:13)
[2021-01-02] MEDS ORDERED: OMEG-135 PO (08:13)
[2021-01-02 08:57] VITALS: BP 122/78
[2021-01-02] MEDS ORDERED: LEVE500T8 PO (09:22)
[2021-01-03] MEDS ORDERED: PALIPERIDONE PALMITATE 156 MG/ML SYRINGE IM ONE (09:00)
== END 2021-01-02 13:44 | disposition home or self-care (01) | DRG 750 ==
LOC: B2S 20:43
PROVIDERS: ADMIT Psychiatry & Neurology Psychiatry; ATTEND Psychiatry & Neurology Psychiatry
DX: F25.9 Schizoaffective disorder, unspecified (principal); G40.409 Other generalized epilepsy and epileptic syndromes, not intractable, without status epilepticus; Z91.19 Patient's noncompliance with other medical treatment and regimen; J44.9 Chronic obstructive pulmonary disease, unspecified; D64.9 Anemia, unspecified; Z88.8 Allergy status to other drugs, medicaments and biological substances; Z90.49 Acquired absence of other specified parts of digestive tract; Z87.891 Personal history of nicotine dependence; Z65.3 Problems related to other legal circumstances; Z59.9 Problem related to housing and economic circumstances, unspecified; Z55.9 Problems related to education and literacy, unspecified
CPT/HCPCS: 80053; 83036; 84439; 84443; 85025; 87081; A9575; Q0162

== ENCOUNTER 2021-01-16 15:23 | Emergency (ER) | payer MEDICAID, OTHER ==
[~2021-01-16] VITALS: Ht 167.6 cm; Wt 72.7 kg
[~2021-01-16 15:23] MED LIST changes: -GABA-1181 PO; +LEVE500T8 PO; +MELA5TAB3 PO; +NALT50TA PO; -NALT50TA6 PO; +OMEG-135 PO; +PALI117D IM; -QUET200T PO; -SERT-158 PO; -TRAZ150 PO
[2021-01-16 15:54] VITALS: BP 132/76
== END 2021-01-16 16:57 ==
LOC: EMS 15:24
DX: F20.0 Paranoid schizophrenia (principal); F32.9 Major depressive disorder, single episode, unspecified; J45.909 Unspecified asthma, uncomplicated; Z88.8 Allergy status to other drugs, medicaments and biological substances; Z79.899 Other long term (current) drug therapy
CPT/HCPCS: 99284; Z7502

== ENCOUNTER 2021-02-02 00:28 | Inpatient (IN) | payer MEDICAID, OTHER ==
[~2021-02-02] VITALS: Ht 172.7 cm; Wt 94.0 kg
[2021-02-02 01:43] LABS: COVID AG,FIA SOURCE NASOPHARYNGEAL
[2021-02-02 01:47] LABS: BASOPHILS % (AUTO) 0.3 % (0.0-2.0); EOSINOPHILS % (AUTO) 1.6 % (1.0-6.0); HEMATOCRIT 34.9 % (41-53); HEMOGLOBIN 11.8 g/dL (13.5-17.5); LYMPHOCYTES # (AUTO) 1.5 K/uL (1.0-4.8); LYMPHOCYTES % (AUTO) 23.9 % (22.0-44.0); MEAN CORPUSCULAR HEMOGLOBIN 31.1 pg (26.0-34.0); MEAN CORPUSCULAR HGB CONC 33.9 G/dL (31.0-37.0); MEAN CORPUSCULAR VOLUME 92 fL (80-100); MONOCYTES # (AUTO) 0.5 K/uL (0.1-1.0); MONOCYTES % (AUTO) 8.1 % (2.0-9.0); NEUTROPHILS # (AUTO) 4.1 K/uL (1.8-7.7); NEUTROPHILS % (AUTO) 66.1 % (40.0-70.0); PLATELET COUNT (AUTO) 236 K/uL (150-450); RED BLOOD CELL COUNT(AUTO) 3.81 MIL/uL (4.50-5.90); RED CELL DISTRIBUTION WIDTH 12.7 % (11.5-14.5)
[2021-02-02 01:55] LABS: AMPHET/METH SCREEN,URINE NEGATIVE (NEGATIVE); BARBITURATE SCREEN, URINE NEGATIVE (NEGATIVE); BENZODIAZEPINES SCREEN,URINE NEGATIVE (NEGATIVE); CANNABINOID SCREEN,URINE NEGATIVE (NEGATIVE); COCAINE SCREEN,URINE NEGATIVE (NEGATIVE); METHADONE SCREEN, URINE NEGATIVE (NEGATIVE); OPIATE SCREEN,URINE NEGATIVE (NEGATIVE)
[2021-02-02 01:57] LABS: PHENCYCLIDINE SCREEN,URINE NEGATIVE (NEGATIVE)
[2021-02-02 01:58] LABS: ANION GAP 5 mmol/L (8-16); CALCIUM, TOTAL 8.2 mg/dL (8.8-10.5); CARBON DIOXIDE 29 mmol/L (22-29); CHLORIDE 102 mmol/L (98-107); CREATININE 0.98 mg/dL (0.60-1.30); GLOMERULAR FILTR. RATE CALC > 60 mL/min (>60); GLUCOSE,RANDOM 114 mg/dL (70-110); POTASSIUM 3.7 mmol/L (3.5-5.1); SODIUM SERUM 136 mmol/L (136-145); UREA NITROGEN, BLOOD 24 mg/dL (7-18)
[2021-02-02 02:04] LABS: ALANINE AMINOTRANSFERASE 69 U/L (12-78); ALBUMIN 4.1 g/dL (3.4-5.0); ALKALINE PHOSPHATASE 88 U/L (46-116); ASPARTATE AMINOTRANSFERASE 45 U/L (15-37); BILIRUBIN,TOTAL 0.2 mg/dL (0.1-1.0); TOTAL PROTEIN, SERUM 7.6 g/dL (6.4-8.2)
[2021-02-02 03:36] LABS: APPEARANCE,URINE CLEAR (CLEAR); BILIRUBIN,URINE NEGATIVE (NEGATIVE); GLUCOSE, URINE (UA) NEGATIVE (NEGATIVE); KETONES,URINE NEGATIVE (NEGATIVE); LEUKOCYTE ESTERASE ,URINE NEGATIVE (NEGATIVE); NITRATE,URINE NEGATIVE (NEGATIVE); OCCULT BLOOD,URINE NEGATIVE (NEGATIVE); PROTEIN,URINE TRACE (NEGATIVE); UROBILINOGEN,URINE 0.2 mg/dL (<=1.0)
[2021-02-02 04:02] VITALS: BP 142/78
[2021-02-02] MEDS ORDERED: LOPERAMIDE HCL 2 MG CAPSULE PO PRN (07:00)
[2021-02-02] MEDS ORDERED: OMEPRAZOLE 20 MG CAPSULE PO PRN (07:00)
[2021-02-02] MEDS ORDERED: DOCUSATE SODIUM 100 MG CAPSULE PO PRN (07:00)
[2021-02-02] MEDS ORDERED: ACETAMINOPHEN 325 MG TABLET PO PRN (07:00)
[2021-02-02] MEDS ORDERED: MAG HYDROX/AL HYDROX/SIMETH ES 30 ML SUSPENSION UDCUP PO PRN (07:00)
[2021-02-02] MEDS ORDERED: BENZOCAINE/MENTHOL LOZENGE PO PRN (07:00)
[2021-02-02] MEDS ORDERED: BACITRACIN 28 GM OINTMENT TP PRN (07:00)
[2021-02-02] MEDS ORDERED: CloNIDine HCL 0.1 MG TABLET PO PRN (07:00)
[2021-02-02] MEDS ORDERED: PETROLATUM,WHITE 28 GM JELLY TP PRN (07:00)
[2021-02-02] MEDS ORDERED: MAGNESIUM HYDROXIDE SUSPENSION 30 ML UDCUP PO PRN (07:00)
[2021-02-02] MEDS: LevETIRAcetam 500 MG TABLET PO SCH ×2 (09:46→15:58)
[2021-02-02] MEDS: OMEGA-3/DHA/EPA/FISH OIL 1,000 MG CAPSULE PO SCH (09:48)
[2021-02-02] MEDS ORDERED: PALIPERIDONE PALMITATE 156 MG/ML SYRINGE IM SCH (11:15)
[2021-02-02] MEDS: IBUPROFEN 600 MG TABLET PO PRN ×2 (12:25→20:22)
[2021-02-02] MEDS: NALTREXONE HCL 50 MG TABLET PO SCH (12:25)
[2021-02-02] MEDS: DIVALPROEX SODIUM 500 MG ER TABLET PO SCH ×2 (12:26→15:58)
[2021-02-02] MEDS: ONDANSETRON HCL 4 MG TABLET PO PRN ×2 (12:39→12:43)
[2021-02-02] MEDS ORDERED: HYPROMELLOSE 0.5% 15 ML OPHTHALMIC SOLUTION OU PRN (18:00)
[2021-02-02 18:29] VITALS: BP 132/79
[2021-02-02] MEDS: ALBUTEROL SULFATE HFA 90 MCG/PUFF 8 GM INHALER IH PRN (18:36)
[2021-02-02] MEDS: MELATONIN 5 MG TABLET PO SCH (20:04)
[2021-02-02] MEDS: OLANZapine 5 MG RAPDIS TABLET PO PRN (20:04)
[2021-02-03 08:00] VITALS: BP 130/71
[2021-02-03] MEDS: LevETIRAcetam 500 MG TABLET PO SCH ×2 (08:02→16:07)
[2021-02-03] MEDS: OMEGA-3/DHA/EPA/FISH OIL 1,000 MG CAPSULE PO SCH (08:03)
[2021-02-03] MEDS: OLANZapine 5 MG RAPDIS TABLET PO PRN ×2 (08:03→20:07)
[2021-02-03] MEDS: DIVALPROEX SODIUM 500 MG ER TABLET PO SCH ×3 (08:03→16:07)
[2021-02-03] MEDS: NALTREXONE HCL 50 MG TABLET PO SCH (08:03)
[2021-02-03] MEDS: ALBUTEROL SULFATE HFA 90 MCG/PUFF 8 GM INHALER IH PRN ×2 (08:04→16:48)
[2021-02-03 16:46] VITALS: BP 124/69
[2021-02-03] MEDS: IBUPROFEN 600 MG TABLET PO PRN (20:07)
[2021-02-03] MEDS: MELATONIN 5 MG TABLET PO SCH (20:07)
[2021-02-03 21:07] VITALS: BP 119/75
[2021-02-04] MEDS: DIVALPROEX SODIUM 500 MG ER TABLET PO SCH ×3 (08:11→16:01)
[2021-02-04] MEDS: LevETIRAcetam 500 MG TABLET PO SCH ×2 (08:11→16:00)
[2021-02-04] MEDS: OMEGA-3/DHA/EPA/FISH OIL 1,000 MG CAPSULE PO SCH (08:11)
[2021-02-04] MEDS: NALTREXONE HCL 50 MG TABLET PO SCH (08:11)
[2021-02-04 08:25] VITALS: BP 123/61
[2021-02-04] MEDS: OLANZapine 5 MG RAPDIS TABLET PO PRN ×2 (14:04→20:11)
[2021-02-04 17:00] VITALS: BP 126/67
[2021-02-04 20:10] VITALS: BP 122/72
[2021-02-04] MEDS: MELATONIN 5 MG TABLET PO SCH (20:11)
[2021-02-04] MEDS: IBUPROFEN 600 MG TABLET PO PRN (20:12)
[2021-02-05] MEDS: NALTREXONE HCL 50 MG TABLET PO SCH (08:03)
[2021-02-05] MEDS: OMEGA-3/DHA/EPA/FISH OIL 1,000 MG CAPSULE PO SCH (08:03)
[2021-02-05] MEDS: LevETIRAcetam 500 MG TABLET PO SCH (08:04)
[2021-02-05] MEDS: DIVALPROEX SODIUM 500 MG ER TABLET PO SCH ×2 (08:04→13:34)
[2021-02-05] MEDS: OLANZapine 5 MG RAPDIS TABLET PO PRN (08:05)
[2021-02-05 08:29] VITALS: BP 111/86
[2021-02-05] MEDS: IBUPROFEN 600 MG TABLET PO PRN (10:38)
== END 2021-02-05 14:30 | disposition home or self-care (01) | DRG 750 ==
LOC: EMS 00:30 → 3EC 02:10 → EMS 02:58
PROVIDERS: ADMIT Psychiatry & Neurology Child & Adolescent Psychiatry; ATTEND Psychiatry & Neurology Child & Adolescent Psychiatry
DX: F25.1 Schizoaffective disorder, depressive type (principal); R45.851 Suicidal ideations; G40.909 Epilepsy, unspecified, not intractable, without status epilepticus; F12.90 Cannabis use, unspecified, uncomplicated; F41.9 Anxiety disorder, unspecified; G47.00 Insomnia, unspecified; K59.00 Constipation, unspecified; Z88.8 Allergy status to other drugs, medicaments and biological substances; F31.9 Bipolar disorder, unspecified; J45.909 Unspecified asthma, uncomplicated; K76.9 Liver disease, unspecified; Z20.822 Contact with and (suspected) exposure to COVID-19
CPT/HCPCS: 80053; 81003; 85025; 87081; 99285; A9575; G0480; J3535; Q0162

== ENCOUNTER 2021-05-21 20:00 | Inpatient (IN) | payer MEDICAID, OTHER ==
[~2021-05-21] VITALS: Ht 167.6 cm; Wt 97.5 kg
[~2021-05-21 20:00] MED LIST changes: -LEVE500T53 PO; -MELA5TAB3 PO; +MELA5TAB40 PO; -PALI117D IM
[2021-05-21 20:34] LABS: BASOPHILS % (AUTO) 0.4 % (0.0-2.0); EOSINOPHILS % (AUTO) 1.3 % (1.0-6.0); HEMATOCRIT 38.2 % (41-53); LYMPHOCYTES # (AUTO) 1.8 K/uL (1.0-4.8); LYMPHOCYTES % (AUTO) 37.2 % (22.0-44.0); MEAN CORPUSCULAR HEMOGLOBIN 30.8 pg (26.0-34.0); MEAN CORPUSCULAR VOLUME 90 fL (80-100); MONOCYTES # (AUTO) 0.5 K/uL (0.1-1.0); MONOCYTES % (AUTO) 10.8 % (2.0-9.0); NEUTROPHILS # (AUTO) 2.4 K/uL (1.8-7.7); NEUTROPHILS % (AUTO) 50.3 % (40.0-70.0); PLATELET COUNT (AUTO) 171 K/uL (150-450); RED BLOOD CELL COUNT(AUTO) 4.23 MIL/uL (4.50-5.90); RED CELL DISTRIBUTION WIDTH 13.9 % (11.5-14.5)
[2021-05-21 20:43] LABS: ANION GAP 13 mmol/L (8-16); CALCIUM, TOTAL 8.4 mg/dL (8.8-10.5); CARBON DIOXIDE 25 mmol/L (22-29); CHLORIDE 103 mmol/L (98-107); CREATININE 0.89 mg/dL (0.60-1.30); GLOMERULAR FILTR. RATE CALC > 60 mL/min (>60); GLUCOSE,RANDOM 137 mg/dL (70-110); POTASSIUM 3.7 mmol/L (3.5-5.1); SODIUM SERUM 141 mmol/L (136-145); UREA NITROGEN, BLOOD 9 mg/dL (7-18)
[2021-05-21 20:50] LABS: ALANINE AMINOTRANSFERASE 66 U/L (12-78); ALBUMIN 3.8 g/dL (3.4-5.0); ALKALINE PHOSPHATASE 73 U/L (46-116); ASPARTATE AMINOTRANSFERASE 41 U/L (15-37); BILIRUBIN,TOTAL 0.2 mg/dL (0.1-1.0); TOTAL PROTEIN, SERUM 7.6 g/dL (6.4-8.2); VALPROIC ACID 75 mcg/mL (50-100)
[2021-05-21 21:02] LABS: AMPHET/METH SCREEN,URINE NEGATIVE (NEGATIVE); BARBITURATE SCREEN, URINE NEGATIVE (NEGATIVE); BENZODIAZEPINES SCREEN,URINE NEGATIVE (NEGATIVE); CANNABINOID SCREEN,URINE NEGATIVE (NEGATIVE); COCAINE SCREEN,URINE NEGATIVE (NEGATIVE); METHADONE SCREEN, URINE NEGATIVE (NEGATIVE); OPIATE SCREEN,URINE NEGATIVE (NEGATIVE); PHENCYCLIDINE SCREEN,URINE NEGATIVE (NEGATIVE)
[2021-05-21 21:04] LABS: COVID AG,FIA SOURCE NASOPHARYNGEAL
[2021-05-22 01:31] VITALS: BP 131/79
[2021-05-22] MEDS ORDERED: -PHARMACY VACCINE NOTE- MISC ONE (03:15)
[2021-05-22 08:39] VITALS: BP 118/68
[2021-05-22 12:18] VITALS: BP 143/60
[2021-05-22 16:21] VITALS: BP 132/72
[2021-05-22] MEDS: LevETIRAcetam 500 MG TABLET PO SCH (16:49)
[2021-05-22] MEDS: OLANZapine 5 MG RAPDIS TABLET PO PRN (20:17)
[2021-05-22] MEDS: HALOPERIDOL 5 MG TABLET PO PRN (20:27)
[2021-05-22] MEDS: RisperiDONE 1 MG TABLET PO SCH (20:27)
[2021-05-23 01:46] VITALS: BP 129/77
[2021-05-23 08:23] VITALS: BP 101/59
[2021-05-23] MEDS: RisperiDONE 1 MG TABLET PO SCH ×2 (09:09→16:30)
[2021-05-23] MEDS: LevETIRAcetam 500 MG TABLET PO SCH ×2 (09:09→16:29)
[2021-05-23] MEDS: DIVALPROEX SODIUM 500 MG ER TABLET PO SCH ×3 (09:09→16:30)
[2021-05-23 16:40] VITALS: BP 123/72
[2021-05-23] MEDS: HALOPERIDOL 5 MG TABLET PO PRN (20:10)
[2021-05-24 01:10] VITALS: BP 120/71
[2021-05-24] MEDS: OLANZapine 5 MG RAPDIS TABLET PO PRN (02:42)
[2021-05-24] MEDS: DIVALPROEX SODIUM 500 MG ER TABLET PO SCH ×3 (09:28→16:07)
[2021-05-24] MEDS: LevETIRAcetam 500 MG TABLET PO SCH ×2 (09:28→16:07)
[2021-05-24] MEDS: RisperiDONE 1 MG TABLET PO SCH ×2 (09:28→16:07)
[2021-05-24 16:22] VITALS: BP 134/84
[2021-05-24] MEDS ORDERED: QUEtiapine FUMARATE 300 MG TABLET PO SCH (21:00)
[2021-05-25 05:50] VITALS: BP 122/70
[2021-05-25 08:22] VITALS: BP 118/72
[2021-05-25] MEDS: DIVALPROEX SODIUM 500 MG ER TABLET PO SCH (09:21)
[2021-05-25] MEDS: LevETIRAcetam 500 MG TABLET PO SCH (09:21)
[2021-05-25] MEDS: RisperiDONE 1 MG TABLET PO SCH (09:22)
[2021-05-25] MEDS ORDERED: RISP1TAB48 PO (10:29)
[2021-05-25] MEDS ORDERED: QUET300T2 PO (10:29)
== END 2021-05-25 14:02 | disposition home or self-care (01) | DRG 753 ==
LOC: EMS 21:49 → B2S 22:13
PROVIDERS: ADMIT Psychiatry & Neurology Psychiatry; ATTEND Psychiatry & Neurology Psychiatry
DX: F31.9 Bipolar disorder, unspecified (principal); F20.0 Paranoid schizophrenia; G40.909 Epilepsy, unspecified, not intractable, without status epilepticus; J45.909 Unspecified asthma, uncomplicated; F19.10 Other psychoactive substance abuse, uncomplicated; Z20.822 Contact with and (suspected) exposure to COVID-19; F17.200 Nicotine dependence, unspecified, uncomplicated; K59.00 Constipation, unspecified; F41.9 Anxiety disorder, unspecified; Z91.018 Allergy to other foods; Z87.19 Personal history of other diseases of the digestive system; Z90.49 Acquired absence of other specified parts of digestive tract; Z88.8 Allergy status to other drugs, medicaments and biological substances; Z71.6 Tobacco abuse counseling; Z71.51 Drug abuse counseling and surveillance of drug abuser; Z91.013 Allergy to seafood
CPT/HCPCS: 80053; 80164; 85025; 99285; G0480

== ENCOUNTER 2021-06-01 14:33 | Inpatient (IN) | payer MEDICAID ==
[~2021-06-01] VITALS: Ht 167.6 cm; Wt 97.5 kg
[~2021-06-01 14:33] MED LIST changes: -MELA5TAB40 PO; -NALT50TA PO; -OMEG-135 PO; +QUET300T2 PO; +RISP1TAB48 PO
[2021-06-01 16:09] LABS: GLUCOMETER DEV NAME(LOC) POC.BV
[2021-06-01] MEDS: QUEtiapine FUMARATE 100 MG TABLET PO PRN (19:33)
[2021-06-01] MEDS: OLANZapine 5 MG RAPDIS TABLET PO PRN (19:39)
[2021-06-01 20:07] VITALS: BP 128/83
[2021-06-02 00:53] VITALS: BP 128/80
[2021-06-02 08:09] LABS: BASOPHILS % (AUTO) 0.5 % (0.0-2.0); EOSINOPHILS % (AUTO) 3.4 % (1.0-6.0); HEMATOCRIT 37.4 % (41-53); HEMOGLOBIN 12.7 g/dL (13.5-17.5); LYMPHOCYTES # (AUTO) 1.7 K/uL (1.0-4.8); LYMPHOCYTES % (AUTO) 26.8 % (22.0-44.0); MEAN CORPUSCULAR HEMOGLOBIN 31.3 pg (26.0-34.0); MEAN CORPUSCULAR HGB CONC 33.8 G/dL (31.0-37.0); MEAN CORPUSCULAR VOLUME 92 fL (80-100); MONOCYTES # (AUTO) 0.7 K/uL (0.1-1.0); MONOCYTES % (AUTO) 10.2 % (2.0-9.0); NEUTROPHILS # (AUTO) 3.8 K/uL (1.8-7.7); NEUTROPHILS % (AUTO) 59.1 % (40.0-70.0); PLATELET COUNT (AUTO) 183 K/uL (150-450); RED BLOOD CELL COUNT(AUTO) 4.05 MIL/uL (4.50-5.90); RED CELL DISTRIBUTION WIDTH 14.1 % (11.5-14.5)
[2021-06-02 08:40] LABS: HEMOGLOBIN A1C 5.8 % (3.8-5.6)
[2021-06-02 08:44] LABS: ALANINE AMINOTRANSFERASE 68 U/L (12-78); ALBUMIN 3.6 g/dL (3.4-5.0); ALKALINE PHOSPHATASE 72 U/L (46-116); ANION GAP 7 mmol/L (8-16); ASPARTATE AMINOTRANSFERASE 55 U/L (15-37); BILIRUBIN,TOTAL 0.3 mg/dL (0.1-1.0); CALCIUM, TOTAL 8.1 mg/dL (8.8-10.5); CARBON DIOXIDE 29 mmol/L (22-29); CHLORIDE 105 mmol/L (98-107); CHOL/HDL RATIO 4.3 (4.2-7.3); CHOLESTEROL 155 mg/dL (131-200); CREATININE 0.87 mg/dL (0.60-1.30); FREE T4 (FREE THYROXINE) 0.85 ng/dL (0.76-1.46); GLOMERULAR FILTR. RATE CALC > 60 mL/min (>60); GLUCOSE,RANDOM 104 mg/dL (70-110); HDL CHOLESTEROL 36 mg/dL (40-60); LDL CHOL (CALC.) 96 mg/dL (0-130); POTASSIUM 3.9 mmol/L (3.5-5.1); SODIUM SERUM 141 mmol/L (136-145); THYROID STIMULATING HORMONE 3.28 uIU/mL (0.36-3.74); TOTAL PROTEIN, SERUM 7.2 g/dL (6.4-8.2); TRIGLYCERIDES 114 mg/dL (15-150); UREA NITROGEN, BLOOD 18 mg/dL (7-18)
[2021-06-02 09:41] LABS: COVID AG,FIA SOURCE NASOPHARYNGEAL
[2021-06-02] MEDS: NYSTATIN 30 GM OINTMENT TP SCH ×2 (10:11→18:05)
[2021-06-02] MEDS: QUEtiapine FUMARATE 100 MG TABLET PO PRN ×2 (10:41→18:04)
[2021-06-02 16:08] VITALS: BP 133/66
[2021-06-02] MEDS: OLANZapine 5 MG RAPDIS TABLET PO PRN (18:04)
[2021-06-02] MEDS: QUEtiapine FUMARATE 300 MG TABLET PO SCH (21:31)
[2021-06-03 05:55] VITALS: BP 130/86
[2021-06-03 07:54] LABS: APPEARANCE,URINE CLEAR (CLEAR); BILIRUBIN,URINE NEGATIVE (NEGATIVE); GLUCOSE, URINE (UA) NEGATIVE (NEGATIVE); KETONES,URINE NEGATIVE (NEGATIVE); LEUKOCYTE ESTERASE ,URINE NEGATIVE (NEGATIVE); NITRATE,URINE NEGATIVE (NEGATIVE); OCCULT BLOOD,URINE NEGATIVE (NEGATIVE); PH,URINE 6.5 (5.0-8.0); PROTEIN,URINE NEGATIVE (NEGATIVE); UROBILINOGEN,URINE 0.2 mg/dL (<=1.0)
[2021-06-03 07:58] LABS: AMPHET/METH SCREEN,URINE NEGATIVE (NEGATIVE); BARBITURATE SCREEN, URINE NEGATIVE (NEGATIVE); BENZODIAZEPINES SCREEN,URINE NEGATIVE (NEGATIVE); CANNABINOID SCREEN,URINE NEGATIVE (NEGATIVE); COCAINE SCREEN,URINE NEGATIVE (NEGATIVE); METHADONE SCREEN, URINE NEGATIVE (NEGATIVE); OPIATE SCREEN,URINE NEGATIVE (NEGATIVE)
[2021-06-03 07:59] LABS: PHENCYCLIDINE SCREEN,URINE NEGATIVE (NEGATIVE)
[2021-06-03] MEDS ORDERED: ACETAMINOPHEN 325 MG TABLET PO PRN (08:15)
[2021-06-03] MEDS ORDERED: ALBUTEROL SULFATE HFA 90 MCG/PUFF 8 GM INHALER IH PRN (08:15)
[2021-06-03] MEDS ORDERED: BENZOCAINE/MENTHOL LOZENGE PO PRN (08:15)
[2021-06-03] MEDS ORDERED: MAG HYDROX/AL HYDROX/SIMETH ES 30 ML SUSPENSION UDCUP PO PRN (08:15)
[2021-06-03] MEDS ORDERED: BACITRACIN 28 GM OINTMENT TP PRN (08:15)
[2021-06-03] MEDS ORDERED: ONDANSETRON HCL 4 MG TABLET PO PRN (08:15)
[2021-06-03] MEDS ORDERED: LOPERAMIDE HCL 2 MG CAPSULE PO PRN (08:15)
[2021-06-03] MEDS ORDERED: PETROLATUM,WHITE 28 GM JELLY TP PRN (08:15)
[2021-06-03] MEDS ORDERED: DOCUSATE SODIUM 100 MG CAPSULE PO PRN (08:15)
[2021-06-03] MEDS ORDERED: CloNIDine HCL 0.1 MG TABLET PO PRN (08:15)
[2021-06-03] MEDS ORDERED: IBUPROFEN 600 MG TABLET PO PRN (08:15)
[2021-06-03] MEDS ORDERED: OMEPRAZOLE 20 MG CAPSULE PO PRN (08:15)
[2021-06-03] MEDS ORDERED: MAGNESIUM HYDROXIDE SUSPENSION 30 ML UDCUP PO PRN (08:15)
[2021-06-03] MEDS: RisperiDONE 1 MG TABLET PO SCH ×2 (08:35→16:16)
[2021-06-03] MEDS: DIVALPROEX SODIUM 500 MG ER TABLET PO SCH ×3 (08:35→16:16)
[2021-06-03] MEDS: NYSTATIN 30 GM OINTMENT TP SCH ×2 (08:36→16:16)
[2021-06-03] MEDS: LevETIRAcetam 500 MG TABLET PO SCH ×2 (08:37→16:16)
[2021-06-03 09:33] VITALS: BP 121/70
[2021-06-03] MEDS: QUEtiapine FUMARATE 100 MG TABLET PO PRN (12:45)
[2021-06-03] MEDS: OLANZapine 5 MG RAPDIS TABLET PO PRN (14:47)
[2021-06-03 16:27] VITALS: BP 130/76
[2021-06-03] MEDS: QUEtiapine FUMARATE 300 MG TABLET PO SCH (21:00)
[2021-06-04 04:40] VITALS: BP 126/70
[2021-06-04 08:25] VITALS: BP 129/64
[2021-06-04] MEDS: QUEtiapine FUMARATE 100 MG TABLET PO PRN (09:06)
[2021-06-04] MEDS: LevETIRAcetam 500 MG TABLET PO SCH ×2 (09:06→16:18)
[2021-06-04] MEDS: RisperiDONE 1 MG TABLET PO SCH ×2 (09:06→16:18)
[2021-06-04] MEDS: DIVALPROEX SODIUM 500 MG ER TABLET PO SCH ×3 (09:06→16:18)
[2021-06-04] MEDS: NYSTATIN 30 GM OINTMENT TP SCH ×2 (09:15→16:19)
[2021-06-04 16:11] VITALS: BP 119/70
== END 2021-06-04 18:22 | disposition home or self-care (01) | DRG 750 ==
LOC: B3A 15:09
PROVIDERS: ADMIT Psychiatry & Neurology Psychiatry; ATTEND Psychiatry & Neurology Psychiatry
DX: F25.9 Schizoaffective disorder, unspecified (principal); B35.9 Dermatophytosis, unspecified; G40.909 Epilepsy, unspecified, not intractable, without status epilepticus; F12.90 Cannabis use, unspecified, uncomplicated; F32.A Depression, unspecified; F41.9 Anxiety disorder, unspecified; Z20.822 Contact with and (suspected) exposure to COVID-19; G47.00 Insomnia, unspecified; K59.00 Constipation, unspecified
CPT/HCPCS: 80053; 80061; 80307; 81003; 83036; 84436; 84439; 84443; 85025; 86592; G0480

== ENCOUNTER 2021-07-04 17:13 | Inpatient (IN) | payer MEDICAID, OTHER ==
[~2021-07-04] VITALS: Ht 177.8 cm; Wt 91.8 kg
[~2021-07-04 17:13] MED LIST changes: -LEVE500T8 PO
[2021-07-04] MEDS ORDERED: FLUT1BLS9 IH (17:49)
[2021-07-04] MEDS ORDERED: ALBU8HFA IH (17:49)
[2021-07-04] MEDS ORDERED: HYD50 PO (17:49)
[2021-07-04] MEDS ORDERED: RISP2TAB45 PO (17:49)
[2021-07-04] MEDS ORDERED: OMEP20 PO (17:49)
[2021-07-04] MEDS ORDERED: LEVE500T20 PO (17:49)
[2021-07-04 18:00] LABS: BASOPHILS % (AUTO) 0.3 % (0.0-2.0); EOSINOPHILS % (AUTO) 1.6 % (1.0-6.0); HEMOGLOBIN 13.5 g/dL (13.5-17.5); LYMPHOCYTES # (AUTO) 1.6 K/uL (1.0-4.8); LYMPHOCYTES % (AUTO) 33.4 % (22.0-44.0); MEAN CORPUSCULAR HEMOGLOBIN 30.4 pg (26.0-34.0); MEAN CORPUSCULAR HGB CONC 33.8 G/dL (31.0-37.0); MEAN CORPUSCULAR VOLUME 90 fL (80-100); MONOCYTES # (AUTO) 0.3 K/uL (0.1-1.0); MONOCYTES % (AUTO) 6.8 % (2.0-9.0); NEUTROPHILS # (AUTO) 2.8 K/uL (1.8-7.7); NEUTROPHILS % (AUTO) 57.9 % (40.0-70.0); PLATELET COUNT (AUTO) 222 K/uL (150-450); RED BLOOD CELL COUNT(AUTO) 4.46 MIL/uL (4.50-5.90); RED CELL DISTRIBUTION WIDTH 13.2 % (11.5-14.5)
[2021-07-04 18:17] LABS: ANION GAP 8 mmol/L (8-16); CALCIUM, TOTAL 8.4 mg/dL (8.8-10.5); CARBON DIOXIDE 27 mmol/L (22-29); CHLORIDE 102 mmol/L (98-107); GLOMERULAR FILTR. RATE CALC > 60 mL/min (>60); GLUCOSE,RANDOM 106 mg/dL (70-110); POTASSIUM 3.9 mmol/L (3.5-5.1); SODIUM SERUM 137 mmol/L (136-145); UREA NITROGEN, BLOOD 10 mg/dL (7-18)
[2021-07-04 18:20] LABS: ALANINE AMINOTRANSFERASE 57 U/L (12-78); ALBUMIN 4.1 g/dL (3.4-5.0); ALKALINE PHOSPHATASE 74 U/L (46-116); ASPARTATE AMINOTRANSFERASE 35 U/L (15-37); BILIRUBIN,TOTAL 0.3 mg/dL (0.1-1.0); TOTAL PROTEIN, SERUM 7.8 g/dL (6.4-8.2)
[2021-07-04 19:43] LABS: AMPHET/METH SCREEN,URINE NEGATIVE (NEGATIVE); BARBITURATE SCREEN, URINE NEGATIVE (NEGATIVE); BENZODIAZEPINES SCREEN,URINE NEGATIVE (NEGATIVE); CANNABINOID SCREEN,URINE NEGATIVE (NEGATIVE); COCAINE SCREEN,URINE NEGATIVE (NEGATIVE); METHADONE SCREEN, URINE NEGATIVE (NEGATIVE); OPIATE SCREEN,URINE NEGATIVE (NEGATIVE)
[2021-07-04 19:44] LABS: PHENCYCLIDINE SCREEN,URINE NEGATIVE (NEGATIVE)
[2021-07-04] MEDS ORDERED: QUEtiapine FUMARATE 100 MG TABLET PO ONE (22:15)
[2021-07-04 22:21] LABS: COVID AG,FIA SOURCE NASOPHARYNGEAL
[2021-07-05 13:51] LABS: APPEARANCE,URINE CLEAR (CLEAR); BILIRUBIN,URINE NEGATIVE (NEGATIVE); GLUCOSE, URINE (UA) NEGATIVE (NEGATIVE); KETONES,URINE NEGATIVE (NEGATIVE); LEUKOCYTE ESTERASE ,URINE NEGATIVE (NEGATIVE); NITRATE,URINE NEGATIVE (NEGATIVE); OCCULT BLOOD,URINE NEGATIVE (NEGATIVE); PROTEIN,URINE NEGATIVE (NEGATIVE); UROBILINOGEN,URINE 0.2 mg/dL (<=1.0)
[2021-07-05 14:52] LABS: AMPHET/METH SCREEN,URINE NEGATIVE (NEGATIVE); BARBITURATE SCREEN, URINE NEGATIVE (NEGATIVE); BENZODIAZEPINES SCREEN,URINE NEGATIVE (NEGATIVE); CANNABINOID SCREEN,URINE NEGATIVE (NEGATIVE); COCAINE SCREEN,URINE NEGATIVE (NEGATIVE); METHADONE SCREEN, URINE NEGATIVE (NEGATIVE); OPIATE SCREEN,URINE NEGATIVE (NEGATIVE); PHENCYCLIDINE SCREEN,URINE NEGATIVE (NEGATIVE)
[2021-07-06 07:12] LABS: CHOL/HDL RATIO 5.3 (4.2-7.3); CHOLESTEROL 171 mg/dL (131-200); HDL CHOLESTEROL 32 mg/dL (40-60); LDL CHOL (CALC.) 110 mg/dL (0-130); TRIGLYCERIDES 145 mg/dL (15-150)
[2021-07-06 10:09] VITALS: BP 137/81
[2021-07-06] MEDS ORDERED: ALBUTEROL SULFATE HFA 90 MCG/PUFF 8 GM INHALER IH PRN (15:30)
[2021-07-06] MEDS: LevETIRAcetam 500 MG TABLET PO SCH (16:14)
[2021-07-06] MEDS: DIVALPROEX SODIUM 500 MG ER TABLET PO SCH (16:14)
[2021-07-06] MEDS: RisperiDONE 1 MG TABLET PO SCH (16:14)
[2021-07-06 16:37] VITALS: BP 133/75
[2021-07-06] MEDS: IBUPROFEN 600 MG TABLET PO PRN (16:41)
[2021-07-06] MEDS ORDERED: MAGNESIUM HYDROXIDE SUSPENSION 30 ML UDCUP PO PRN (16:45)
[2021-07-06] MEDS ORDERED: ACETAMINOPHEN 325 MG TABLET PO PRN (16:45)
[2021-07-06] MEDS ORDERED: PETROLATUM,WHITE 28 GM JELLY TP PRN (16:45)
[2021-07-06] MEDS ORDERED: CloNIDine HCL 0.1 MG TABLET PO PRN (16:45)
[2021-07-06] MEDS ORDERED: BACITRACIN 28 GM OINTMENT TP PRN (16:45)
[2021-07-06] MEDS ORDERED: LOPERAMIDE HCL 2 MG CAPSULE PO PRN (16:45)
[2021-07-06] MEDS ORDERED: BENZOCAINE/MENTHOL LOZENGE PO PRN (16:45)
[2021-07-06] MEDS: OLANZapine 5 MG RAPDIS TABLET PO PRN (19:06)
[2021-07-06] MEDS: QUEtiapine FUMARATE 300 MG TABLET PO SCH (20:26)
[2021-07-07] MEDS: OLANZapine 5 MG RAPDIS TABLET PO PRN ×2 (11:00→17:47)
[2021-07-07] MEDS: RisperiDONE 1 MG TABLET PO SCH ×2 (11:00→17:22)
[2021-07-07] MEDS: LevETIRAcetam 500 MG TABLET PO SCH ×2 (11:00→17:22)
[2021-07-07] MEDS: FLUTICASONE/SALMETEROL 250-50 MCG/INH INHALER [60] IH SCH ×2 (11:01→17:22)
[2021-07-07] MEDS: DIVALPROEX SODIUM 500 MG ER TABLET PO SCH ×3 (11:01→17:22)
[2021-07-07] MEDS: OMEPRAZOLE 20 MG CAPSULE PO SCH (11:02)
[2021-07-07 16:24] VITALS: BP 93/61
[2021-07-07 17:48] VITALS: BP 118/73
[2021-07-07] MEDS: QUEtiapine FUMARATE 300 MG TABLET PO SCH (20:03)
[2021-07-08] MEDS: FLUTICASONE/SALMETEROL 250-50 MCG/INH INHALER [60] IH SCH ×2 (10:19→16:25)
[2021-07-08] MEDS: LevETIRAcetam 500 MG TABLET PO SCH ×2 (10:19→16:24)
[2021-07-08] MEDS: RisperiDONE 1 MG TABLET PO SCH ×2 (10:19→16:24)
[2021-07-08] MEDS: DIVALPROEX SODIUM 500 MG ER TABLET PO SCH ×3 (10:19→16:24)
[2021-07-08] MEDS: OMEPRAZOLE 20 MG CAPSULE PO SCH (10:20)
[2021-07-08] MEDS: IBUPROFEN 600 MG TABLET PO PRN (10:52)
[2021-07-08] MEDS: OLANZapine 5 MG RAPDIS TABLET PO PRN ×3 (12:49→17:49)
[2021-07-08 16:31] VITALS: BP 125/78
[2021-07-08] MEDS: QUEtiapine FUMARATE 300 MG TABLET PO SCH (20:18)
[2021-07-09 08:00] VITALS: BP 137/82
[2021-07-09] MEDS: LevETIRAcetam 500 MG TABLET PO SCH ×2 (08:14→16:30)
[2021-07-09] MEDS: RisperiDONE 1 MG TABLET PO SCH ×2 (08:14→16:30)
[2021-07-09] MEDS: OMEPRAZOLE 20 MG CAPSULE PO SCH (08:15)
[2021-07-09] MEDS: DIVALPROEX SODIUM 500 MG ER TABLET PO SCH ×3 (08:15→16:30)
[2021-07-09] MEDS: FLUTICASONE/SALMETEROL 250-50 MCG/INH INHALER [60] IH SCH ×2 (08:22→17:34)
[2021-07-09] MEDS: IBUPROFEN 600 MG TABLET PO PRN (13:15)
[2021-07-09] MEDS: ONDANSETRON HCL 4 MG TABLET PO PRN (14:24)
[2021-07-09] MEDS: OLANZapine 5 MG RAPDIS TABLET PO PRN ×2 (14:24→18:40)
[2021-07-09 16:44] VITALS: BP 143/75
[2021-07-09] MEDS: QUEtiapine FUMARATE 300 MG TABLET PO SCH (20:37)
[2021-07-10] MEDS: RisperiDONE 1 MG TABLET PO SCH ×2 (09:19→16:15)
[2021-07-10] MEDS: FLUTICASONE/SALMETEROL 250-50 MCG/INH INHALER [60] IH SCH ×2 (09:19→17:02)
[2021-07-10] MEDS: DIVALPROEX SODIUM 500 MG ER TABLET PO SCH ×3 (09:19→16:15)
[2021-07-10] MEDS: LevETIRAcetam 500 MG TABLET PO SCH ×2 (09:19→16:15)
[2021-07-10] MEDS: OLANZapine 5 MG RAPDIS TABLET PO PRN ×2 (09:20→16:15)
[2021-07-10] MEDS: OMEPRAZOLE 20 MG CAPSULE PO SCH (09:20)
[2021-07-10 16:00] VITALS: BP 122/76
[2021-07-10] MEDS: MAG HYDROX/AL HYDROX/SIMETH ES 30 ML SUSPENSION UDCUP PO PRN (17:56)
[2021-07-10] MEDS: QUEtiapine FUMARATE 300 MG TABLET PO SCH (20:56)
[2021-07-11] MEDS: DIVALPROEX SODIUM 500 MG ER TABLET PO SCH ×4 (09:52→17:44)
[2021-07-11] MEDS: OMEPRAZOLE 20 MG CAPSULE PO SCH (09:53)
[2021-07-11] MEDS: RisperiDONE 1 MG TABLET PO SCH ×2 (09:53→16:14)
[2021-07-11] MEDS: LevETIRAcetam 500 MG TABLET PO SCH ×2 (09:53→16:14)
[2021-07-11] MEDS: FLUTICASONE/SALMETEROL 250-50 MCG/INH INHALER [60] IH SCH ×2 (09:54→17:45)
[2021-07-11 12:48] LABS: BASOPHILS % (AUTO) 0.4 % (0.0-2.0); EOSINOPHILS % (AUTO) 1.9 % (1.0-6.0); HEMATOCRIT 39.9 % (41-53); HEMOGLOBIN 13.9 g/dL (13.5-17.5); LYMPHOCYTES # (AUTO) 1.6 K/uL (1.0-4.8); LYMPHOCYTES % (AUTO) 39.4 % (22.0-44.0); MEAN CORPUSCULAR HEMOGLOBIN 31.6 pg (26.0-34.0); MEAN CORPUSCULAR HGB CONC 34.9 G/dL (31.0-37.0); MEAN CORPUSCULAR VOLUME 91 fL (80-100); MONOCYTES # (AUTO) 0.2 K/uL (0.1-1.0); MONOCYTES % (AUTO) 5.9 % (2.0-9.0); NEUTROPHILS # (AUTO) 2.1 K/uL (1.8-7.7); NEUTROPHILS % (AUTO) 52.4 % (40.0-70.0); PLATELET COUNT (AUTO) 195 K/uL (150-450); RED BLOOD CELL COUNT(AUTO) 4.41 MIL/uL (4.50-5.90); RED CELL DISTRIBUTION WIDTH 13.4 % (11.5-14.5)
[2021-07-11 13:06] LABS: ALANINE AMINOTRANSFERASE 55 U/L (12-78); ALBUMIN 4.1 g/dL (3.4-5.0); ALKALINE PHOSPHATASE 81 U/L (46-116); ANION GAP 10 mmol/L (8-16); ASPARTATE AMINOTRANSFERASE 37 U/L (15-37); BILIRUBIN,TOTAL 0.4 mg/dL (0.1-1.0); CALCIUM, TOTAL 8.7 mg/dL (8.8-10.5); CARBON DIOXIDE 27 mmol/L (22-29); CHLORIDE 102 mmol/L (98-107); CREATININE 0.91 mg/dL (0.60-1.30); GLOMERULAR FILTR. RATE CALC > 60 mL/min (>60); GLUCOSE,RANDOM 150 mg/dL (70-110); PHOSPHORUS 3.8 mg/dL (2.5-4.9); POTASSIUM 3.9 mmol/L (3.5-5.1); SODIUM SERUM 139 mmol/L (136-145); UREA NITROGEN, BLOOD 20 mg/dL (7-18)
[2021-07-11] MEDS: ONDANSETRON HCL 4 MG TABLET PO PRN (13:30)
[2021-07-11 16:00] VITALS: BP 153/86
[2021-07-11 18:37] LABS: COVID AG,FIA SOURCE NASAL SWAB
[2021-07-11] MEDS: QUEtiapine FUMARATE 300 MG TABLET PO SCH (20:17)
[2021-07-12] MEDS: OMEPRAZOLE 20 MG CAPSULE PO SCH (10:06)
[2021-07-12] MEDS: RisperiDONE 1 MG TABLET PO SCH ×2 (10:06→16:21)
[2021-07-12] MEDS: LevETIRAcetam 500 MG TABLET PO SCH ×2 (10:06→16:21)
[2021-07-12] MEDS: DIVALPROEX SODIUM 500 MG ER TABLET PO SCH ×3 (10:06→16:20)
[2021-07-12] MEDS: FLUTICASONE/SALMETEROL 250-50 MCG/INH INHALER [60] IH SCH ×2 (10:08→16:21)
[2021-07-12] MEDS: IBUPROFEN 600 MG TABLET PO PRN (11:03)
[2021-07-12 11:05] VITALS: BP 140/79
[2021-07-12 12:06] VITALS: BP 141/68
[2021-07-12 16:11] VITALS: BP 128/71
[2021-07-12] MEDS: MAG HYDROX/AL HYDROX/SIMETH ES 30 ML SUSPENSION UDCUP PO PRN (19:43)
[2021-07-12] MEDS: QUEtiapine FUMARATE 300 MG TABLET PO SCH (20:24)
[2021-07-13] MEDS: FLUTICASONE/SALMETEROL 250-50 MCG/INH INHALER [60] IH SCH ×2 (08:42→17:14)
[2021-07-13] MEDS: RisperiDONE 1 MG TABLET PO SCH ×2 (08:42→16:16)
[2021-07-13] MEDS: LevETIRAcetam 500 MG TABLET PO SCH ×2 (08:42→16:16)
[2021-07-13] MEDS: DIVALPROEX SODIUM 500 MG ER TABLET PO SCH ×3 (08:42→16:16)
[2021-07-13] MEDS: OMEPRAZOLE 20 MG CAPSULE PO SCH (08:42)
[2021-07-13 08:56] VITALS: BP 146/83
[2021-07-13] MEDS: IBUPROFEN 600 MG TABLET PO PRN ×2 (09:20→21:47)
[2021-07-13 10:20] VITALS: BP 136/78
[2021-07-13] MEDS: QUEtiapine FUMARATE 300 MG TABLET PO SCH (20:08)
[2021-07-13] MEDS: MAG HYDROX/AL HYDROX/SIMETH ES 30 ML SUSPENSION UDCUP PO PRN (20:19)
[2021-07-13 21:47] VITALS: BP 128/74
[2021-07-14] MEDS: OMEPRAZOLE 20 MG CAPSULE PO SCH (09:17)
[2021-07-14] MEDS: DIVALPROEX SODIUM 500 MG ER TABLET PO SCH ×2 (09:17→13:30)
[2021-07-14] MEDS: LevETIRAcetam 500 MG TABLET PO SCH (09:17)
[2021-07-14] MEDS: RisperiDONE 1 MG TABLET PO SCH (09:17)
[2021-07-14] MEDS: FLUTICASONE/SALMETEROL 250-50 MCG/INH INHALER [60] IH SCH (09:19)
== END 2021-07-14 13:50 | disposition home or self-care (01) | DRG 750 ==
LOC: EMS 17:19 → 3EC 07-06 00:35 → 3EI 07-10 16:14
PROVIDERS: ADMIT Psychiatry & Neurology Psychiatry; ATTEND Psychiatry & Neurology Psychiatry
DX: F25.9 Schizoaffective disorder, unspecified (principal); R45.851 Suicidal ideations; G40.909 Epilepsy, unspecified, not intractable, without status epilepticus; F12.90 Cannabis use, unspecified, uncomplicated; B35.9 Dermatophytosis, unspecified; F31.9 Bipolar disorder, unspecified; F41.9 Anxiety disorder, unspecified; K59.00 Constipation, unspecified; J45.909 Unspecified asthma, uncomplicated; Z20.822 Contact with and (suspected) exposure to COVID-19; K76.9 Liver disease, unspecified; G47.00 Insomnia, unspecified; F84.0 Autistic disorder; Q90.9 Down syndrome, unspecified; Z88.8 Allergy status to other drugs, medicaments and biological substances; Z90.49 Acquired absence of other specified parts of digestive tract
CPT/HCPCS: 80053; 80061; 81003; 83036; 83735; 84100; 85025; 99291; G0480; J3535; Q0162

== ENCOUNTER 2021-07-17 23:00 | Inpatient (IN) | payer MEDICAID, OTHER ==
[~2021-07-17] VITALS: Ht 175.3 cm; Wt 84.5 kg
[~2021-07-17 23:00] MED LIST changes: +ALBU8HFA IH; +FLUT1BLS9 IH; +LEVE500T20 PO; +OMEP20 PO
[2021-07-17 23:39] LABS: BASOPHILS % (AUTO) 0.7 % (0.0-2.0); HEMATOCRIT 36.2 % (41-53); HEMOGLOBIN 12.9 g/dL (13.5-17.5); LYMPHOCYTES # (AUTO) 1.8 K/uL (1.0-4.8); LYMPHOCYTES % (AUTO) 36.3 % (22.0-44.0); MEAN CORPUSCULAR HEMOGLOBIN 31.6 pg (26.0-34.0); MEAN CORPUSCULAR HGB CONC 35.6 G/dL (31.0-37.0); MEAN CORPUSCULAR VOLUME 89 fL (80-100); MONOCYTES # (AUTO) 0.4 K/uL (0.1-1.0); MONOCYTES % (AUTO) 8.8 % (2.0-9.0); NEUTROPHILS # (AUTO) 2.6 K/uL (1.8-7.7); NEUTROPHILS % (AUTO) 53.2 % (40.0-70.0); PLATELET COUNT (AUTO) 175 K/uL (150-450); RED BLOOD CELL COUNT(AUTO) 4.07 MIL/uL (4.50-5.90)
[2021-07-17 23:50] LABS: AMPHET/METH SCREEN,URINE NEGATIVE (NEGATIVE); BARBITURATE SCREEN, URINE NEGATIVE (NEGATIVE); BENZODIAZEPINES SCREEN,URINE NEGATIVE (NEGATIVE); CANNABINOID SCREEN,URINE NEGATIVE (NEGATIVE); COCAINE SCREEN,URINE NEGATIVE (NEGATIVE); METHADONE SCREEN, URINE NEGATIVE (NEGATIVE); OPIATE SCREEN,URINE NEGATIVE (NEGATIVE)
[2021-07-17 23:58] LABS: ANION GAP 12 mmol/L (8-16); CALCIUM, TOTAL 7.9 mg/dL (8.8-10.5); CARBON DIOXIDE 26 mmol/L (22-29); CHLORIDE 101 mmol/L (98-107); CREATININE 0.83 mg/dL (0.60-1.30); GLOMERULAR FILTR. RATE CALC > 60 mL/min (>60); GLUCOSE,RANDOM 116 mg/dL (70-110); POTASSIUM 3.5 mmol/L (3.5-5.1); SODIUM SERUM 139 mmol/L (136-145); UREA NITROGEN, BLOOD 5 mg/dL (7-18)
[2021-07-18 00:03] LABS: PHENCYCLIDINE SCREEN,URINE NEGATIVE (NEGATIVE)
[2021-07-18 00:03] LABS: ALANINE AMINOTRANSFERASE 60 U/L (12-78); ALBUMIN 3.9 g/dL (3.4-5.0); ALKALINE PHOSPHATASE 81 U/L (46-116); ASPARTATE AMINOTRANSFERASE 54 U/L (15-37); BILIRUBIN,TOTAL 0.1 mg/dL (0.1-1.0); TOTAL PROTEIN, SERUM 7.4 g/dL (6.4-8.2)
[2021-07-18 00:57] LABS: VALPROIC ACID 49 mcg/mL (50-100)
[2021-07-18 05:28] LABS: COVID AG,FIA SOURCE NASOPHARYNGEAL
[2021-07-18 10:00] VITALS: BP 130/80
[2021-07-18] MEDS ORDERED: BENZOCAINE/MENTHOL LOZENGE PO PRN (13:00)
[2021-07-18] MEDS ORDERED: ALBUTEROL SULFATE HFA 90 MCG/PUFF 8 GM INHALER IH PRN (13:00)
[2021-07-18] MEDS ORDERED: PETROLATUM,WHITE 28 GM JELLY TP PRN (13:00)
[2021-07-18] MEDS ORDERED: ONDANSETRON HCL 4 MG TABLET PO PRN (13:00)
[2021-07-18] MEDS ORDERED: CloNIDine HCL 0.1 MG TABLET PO PRN (13:00)
[2021-07-18] MEDS ORDERED: MAG HYDROX/AL HYDROX/SIMETH ES 30 ML SUSPENSION UDCUP PO PRN (13:00)
[2021-07-18] MEDS ORDERED: LOPERAMIDE HCL 2 MG CAPSULE PO PRN (13:00)
[2021-07-18] MEDS ORDERED: MAGNESIUM HYDROXIDE SUSPENSION 30 ML UDCUP PO PRN (13:00)
[2021-07-18] MEDS ORDERED: ACETAMINOPHEN 325 MG TABLET PO PRN (13:00)
[2021-07-18] MEDS ORDERED: DOCUSATE SODIUM 100 MG CAPSULE PO PRN (13:00)
[2021-07-18] MEDS ORDERED: OMEPRAZOLE 20 MG CAPSULE PO PRN (13:00)
[2021-07-18] MEDS ORDERED: BACITRACIN 28 GM OINTMENT TP PRN (13:00)
[2021-07-18 14:09] VITALS: BP 130/80
[2021-07-18 16:19] VITALS: BP 118/68
[2021-07-18] MEDS: LevETIRAcetam 500 MG TABLET PO SCH (16:27)
[2021-07-18] MEDS: OLANZapine 5 MG RAPDIS TABLET PO PRN (21:31)
[2021-07-18] MEDS: QUEtiapine FUMARATE 300 MG TABLET PO SCH (22:23)
[2021-07-19 00:43] VITALS: BP 136/80
[2021-07-19 07:55] LABS: HEMOGLOBIN A1C 5.5 % (3.8-5.6)
[2021-07-19 08:12] VITALS: BP 123/79
[2021-07-19 08:12] LABS: CHOL/HDL RATIO 5.5 (4.2-7.3); FREE T4 (FREE THYROXINE) 0.86 ng/dL (0.76-1.46); THYROID STIMULATING HORMONE 5.7 uIU/mL (0.36-3.74)
[2021-07-19] MEDS: DIVALPROEX SODIUM 500 MG DR TABLET PO SCH ×3 (08:17→16:51)
[2021-07-19] MEDS: LevETIRAcetam 500 MG TABLET PO SCH ×2 (08:17→16:51)
[2021-07-19 18:37] VITALS: BP 120/81
[2021-07-19] MEDS: QUEtiapine FUMARATE 300 MG TABLET PO SCH (20:31)
[2021-07-20 06:29] VITALS: BP 118/76
[2021-07-20 08:21] VITALS: BP 134/79
[2021-07-20] MEDS: DIVALPROEX SODIUM 500 MG DR TABLET PO SCH ×3 (08:21→16:35)
[2021-07-20] MEDS: LevETIRAcetam 500 MG TABLET PO SCH ×2 (08:21→16:35)
[2021-07-20 17:30] VITALS: BP 137/85
[2021-07-20] MEDS: QUEtiapine FUMARATE 300 MG TABLET PO SCH (20:37)
[2021-07-21 00:46] VITALS: BP 129/78
[2021-07-21] MEDS: LevETIRAcetam 500 MG TABLET PO SCH ×2 (08:10→16:43)
[2021-07-21] MEDS: DIVALPROEX SODIUM 500 MG DR TABLET PO SCH ×3 (08:10→16:43)
[2021-07-21 08:14] VITALS: BP 128/87
[2021-07-21] MEDS: OLANZapine 5 MG RAPDIS TABLET PO PRN (14:27)
[2021-07-21 16:39] VITALS: BP 124/61
[2021-07-21] MEDS: QUEtiapine FUMARATE 300 MG TABLET PO SCH (21:16)
[2021-07-21] MEDS: IBUPROFEN 600 MG TABLET PO PRN (21:28)
[2021-07-22 00:29] VITALS: BP 120/67
[2021-07-22] MEDS: LevETIRAcetam 500 MG TABLET PO SCH ×2 (08:18→16:29)
[2021-07-22] MEDS: DIVALPROEX SODIUM 500 MG DR TABLET PO SCH ×3 (08:19→16:29)
[2021-07-22 10:47] VITALS: BP 122/76
[2021-07-22] MEDS: OLANZapine 5 MG RAPDIS TABLET PO PRN (14:43)
[2021-07-22 16:18] VITALS: BP 149/84
[2021-07-22] MEDS: QUEtiapine FUMARATE 300 MG TABLET PO SCH (21:24)
[2021-07-22 21:56] VITALS: BP 136/71
[2021-07-22] MEDS: IBUPROFEN 600 MG TABLET PO PRN (21:56)
[2021-07-23 00:53] VITALS: BP 132/74
[2021-07-23] MEDS: IBUPROFEN 600 MG TABLET PO PRN (05:53)
[2021-07-23 05:54] VITALS: BP 126/80
[2021-07-23 08:05] VITALS: BP 113/78
[2021-07-23 08:14] LABS: BAND NEUTROPHILS % (MANUAL) 0 % (0-5)
[2021-07-23 08:19] LABS: HEMATOCRIT 39.6 % (41-53); MEAN CORPUSCULAR HEMOGLOBIN 31.9 pg (26.0-34.0); MEAN CORPUSCULAR HGB CONC 35.5 G/dL (31.0-37.0); MEAN CORPUSCULAR VOLUME 90 fL (80-100); PLATELET COUNT (AUTO) 182 K/uL (150-450); RED BLOOD CELL COUNT(AUTO) 4.41 MIL/uL (4.50-5.90); RED CELL DISTRIBUTION WIDTH 12.9 % (11.5-14.5)
[2021-07-23 08:34] LABS: COVID AG,FIA SOURCE NASOPHARYNGEAL
[2021-07-23 08:52] LABS: ANION GAP 6 mmol/L (8-16); CALCIUM, TOTAL 8.5 mg/dL (8.8-10.5); CARBON DIOXIDE 31 mmol/L (22-29); CHLORIDE 97 mmol/L (98-107); CHOL/HDL RATIO 5.1 (4.2-7.3); CHOLESTEROL 173 mg/dL (131-200); CREATININE 0.79 mg/dL (0.60-1.30); GLOMERULAR FILTR. RATE CALC > 60 mL/min (>60); GLUCOSE,RANDOM 110 mg/dL (70-110); HDL CHOLESTEROL 34 mg/dL (40-60); LDL CHOL (CALC.) 108 mg/dL (0-130); POTASSIUM 3.9 mmol/L (3.5-5.1); SODIUM SERUM 134 mmol/L (136-145); TRIGLYCERIDES 153 mg/dL (15-150); UREA NITROGEN, BLOOD 7 mg/dL (7-18); VALPROIC ACID 90 mcg/mL (50-100)
[2021-07-23] MEDS: LevETIRAcetam 500 MG TABLET PO SCH ×2 (09:21→17:18)
[2021-07-23] MEDS: DIVALPROEX SODIUM 500 MG DR TABLET PO SCH ×3 (09:21→17:18)
[2021-07-23 09:47] LABS: LYMPHOCYTES % (MANUAL) 48 % (22-44); MONOCYTES % (MANUAL) 4 % (2-9); SEGMENTED NEUTROPHILS % 48 % (40-70)
[2021-07-23 16:17] VITALS: BP 113/63
[2021-07-23] MEDS ORDERED: DIVA-112 PO (16:44)
== END 2021-07-23 19:48 | disposition home or self-care (01) | DRG 750 ==
LOC: EMS 23:02 → B2S 07-18 08:18
PROVIDERS: ADMIT Psychiatry & Neurology Psychiatry; ATTEND Psychiatry & Neurology Psychiatry
DX: F25.0 Schizoaffective disorder, bipolar type (principal); G40.909 Epilepsy, unspecified, not intractable, without status epilepticus; R45.851 Suicidal ideations; F12.90 Cannabis use, unspecified, uncomplicated; Z20.822 Contact with and (suspected) exposure to COVID-19; F41.9 Anxiety disorder, unspecified; F84.0 Autistic disorder; G47.00 Insomnia, unspecified; J45.909 Unspecified asthma, uncomplicated; K59.00 Constipation, unspecified; Z88.8 Allergy status to other drugs, medicaments and biological substances; Q90.9 Down syndrome, unspecified; Z91.14 Patient's other noncompliance with medication regimen
CPT/HCPCS: 80048; 80053; 80061; 80164; 83036; 83735; 84100; 84439; 84443; 85007; 85025; 85027; 87081; 99285; G0480

== ENCOUNTER 2021-07-29 13:57 | Inpatient (IN) | payer MEDICAID, OTHER ==
[~2021-07-29] VITALS: Ht 175.3 cm; Wt 93.0 kg
[~2021-07-29 13:57] MED LIST changes: -ALBU8HFA IH; +DIVA-112 PO; -DIVA-80 PO; -FLUT1BLS9 IH; -OMEP20 PO; -RISP1TAB48 PO
[2021-07-29 14:21] LABS: BASOPHILS % (AUTO) 0.3 % (0.0-2.0); EOSINOPHILS % (AUTO) 1.1 % (1.0-6.0); HEMOGLOBIN 12.5 g/dL (13.5-17.5); LYMPHOCYTES % (AUTO) 28.6 % (22.0-44.0); MEAN CORPUSCULAR HEMOGLOBIN 31.1 pg (26.0-34.0); MEAN CORPUSCULAR HGB CONC 34.6 G/dL (31.0-37.0); MEAN CORPUSCULAR VOLUME 90 fL (80-100); MONOCYTES # (AUTO) 0.6 K/uL (0.1-1.0); MONOCYTES % (AUTO) 9.3 % (2.0-9.0); NEUTROPHILS # (AUTO) 4.2 K/uL (1.8-7.7); NEUTROPHILS % (AUTO) 60.7 % (40.0-70.0); PLATELET COUNT (AUTO) 216 K/uL (150-450); RED BLOOD CELL COUNT(AUTO) 4.01 MIL/uL (4.50-5.90)
[2021-07-29 14:38] LABS: ANION GAP 10 mmol/L (8-16); CARBON DIOXIDE 27 mmol/L (22-29); CHLORIDE 96 mmol/L (98-107); CREATININE 0.84 mg/dL (0.60-1.30); GLOMERULAR FILTR. RATE CALC > 60 mL/min (>60); GLUCOSE,RANDOM 90 mg/dL (70-110); SODIUM SERUM 133 mmol/L (136-145); UREA NITROGEN, BLOOD 9 mg/dL (7-18)
[2021-07-29 14:43] LABS: ALANINE AMINOTRANSFERASE 46 U/L (12-78); ALBUMIN 3.8 g/dL (3.4-5.0); ALKALINE PHOSPHATASE 76 U/L (46-116); ASPARTATE AMINOTRANSFERASE 30 U/L (15-37); BILIRUBIN,TOTAL 0.2 mg/dL (0.1-1.0); TOTAL PROTEIN, SERUM 7.5 g/dL (6.4-8.2); VALPROIC ACID 96 mcg/mL (50-100)
[2021-07-29 14:45] LABS: ACETAMINOPHEN < 2 mcg/mL (10-30)
[2021-07-29 14:48] LABS: AMPHET/METH SCREEN,URINE NEGATIVE (NEGATIVE); BARBITURATE SCREEN, URINE NEGATIVE (NEGATIVE); BENZODIAZEPINES SCREEN,URINE NEGATIVE (NEGATIVE); CANNABINOID SCREEN,URINE NEGATIVE (NEGATIVE); COCAINE SCREEN,URINE NEGATIVE (NEGATIVE); METHADONE SCREEN, URINE NEGATIVE (NEGATIVE); OPIATE SCREEN,URINE NEGATIVE (NEGATIVE); PHENCYCLIDINE SCREEN,URINE NEGATIVE (NEGATIVE)
[2021-07-29 14:48] LABS: SALICYLATE 0.8 mg/dL (2.8-20.0)
[2021-07-29 21:03] LABS: COVID AG,FIA SOURCE NASAL SWAB
[2021-07-30 01:14] LABS: CHOL/HDL RATIO 4.8 (4.2-7.3)
[2021-07-30 01:33] LABS: APPEARANCE,URINE CLEAR (CLEAR); BILIRUBIN,URINE NEGATIVE (NEGATIVE); GLUCOSE, URINE (UA) NEGATIVE (NEGATIVE); KETONES,URINE NEGATIVE (NEGATIVE); LEUKOCYTE ESTERASE ,URINE NEGATIVE (NEGATIVE); NITRATE,URINE NEGATIVE (NEGATIVE); OCCULT BLOOD,URINE NEGATIVE (NEGATIVE); PROTEIN,URINE NEGATIVE (NEGATIVE); UROBILINOGEN,URINE 0.2 mg/dL (<=1.0)
[2021-07-30 02:57] VITALS: BP 126/73
[2021-07-30] MEDS ORDERED: INFLUENZA VIRUS VACCINE QVS 2021-22 (6MO+)/PF 60 MCG/0.5 ML SYRINGE IM. ONE (06:15)
[2021-07-30] MEDS ORDERED: ONDANSETRON HCL 4 MG TABLET PO PRN (08:30)
[2021-07-30] MEDS ORDERED: PETROLATUM,WHITE 28 GM JELLY TP PRN (08:30)
[2021-07-30] MEDS ORDERED: OMEPRAZOLE 20 MG CAPSULE PO PRN (08:30)
[2021-07-30] MEDS ORDERED: LOPERAMIDE HCL 2 MG CAPSULE PO PRN (08:30)
[2021-07-30] MEDS ORDERED: BACITRACIN 28 GM OINTMENT TP PRN (08:30)
[2021-07-30] MEDS ORDERED: CloNIDine HCL 0.1 MG TABLET PO PRN (08:30)
[2021-07-30] MEDS ORDERED: DOCUSATE SODIUM 100 MG CAPSULE PO PRN (08:30)
[2021-07-30] MEDS ORDERED: ALBUTEROL SULFATE HFA 90 MCG/PUFF 8 GM INHALER IH PRN (08:30)
[2021-07-30] MEDS ORDERED: MAGNESIUM HYDROXIDE SUSPENSION 30 ML UDCUP PO PRN (08:30)
[2021-07-30] MEDS ORDERED: BENZOCAINE/MENTHOL LOZENGE PO PRN (08:30)
[2021-07-30] MEDS: LACTULOSE 20 GM/30 ML SOLUTION UDCUP PO SCH ×2 (10:45→16:05)
[2021-07-30] MEDS: LevETIRAcetam 500 MG TABLET PO SCH ×2 (10:45→16:03)
[2021-07-30] MEDS: DIVALPROEX SODIUM 500 MG DR TABLET PO SCH ×2 (13:02→16:04)
[2021-07-30 16:15] VITALS: BP 124/74
[2021-07-30] MEDS: QUEtiapine FUMARATE 300 MG TABLET PO SCH (20:25)
[2021-07-31] MEDS: LevETIRAcetam 500 MG TABLET PO SCH ×2 (09:00→16:24)
[2021-07-31] MEDS: DIVALPROEX SODIUM 500 MG DR TABLET PO SCH ×3 (09:00→16:24)
[2021-07-31] MEDS: LACTULOSE 20 GM/30 ML SOLUTION UDCUP PO SCH ×2 (09:00→17:00)
[2021-07-31] MEDS: ACETAMINOPHEN 325 MG TABLET PO PRN (13:25)
[2021-07-31 16:34] VITALS: BP 147/86
[2021-07-31] MEDS: QUEtiapine FUMARATE 300 MG TABLET PO SCH (20:16)
[2021-08-01] MEDS: LACTULOSE 20 GM/30 ML SOLUTION UDCUP PO SCH ×3 (09:00→16:06)
[2021-08-01] MEDS: DIVALPROEX SODIUM 500 MG DR TABLET PO SCH ×3 (09:42→16:06)
[2021-08-01] MEDS: LevETIRAcetam 500 MG TABLET PO SCH ×2 (09:43→16:06)
[2021-08-01 16:51] VITALS: BP 125/61
[2021-08-01 18:35] VITALS: BP 127/70
[2021-08-01] MEDS: ACETAMINOPHEN 325 MG TABLET PO PRN (18:35)
[2021-08-01 19:35] VITALS: BP 125/72
[2021-08-01] MEDS: QUEtiapine FUMARATE 300 MG TABLET PO SCH (20:17)
[2021-08-02 01:40] VITALS: BP 128/86
[2021-08-02] MEDS: QUEtiapine FUMARATE 100 MG TABLET PO PRN ×2 (01:41→16:32)
[2021-08-02 08:00] VITALS: BP 136/68
[2021-08-02] MEDS: LACTULOSE 20 GM/30 ML SOLUTION UDCUP PO SCH ×3 (08:12→16:33)
[2021-08-02] MEDS: LevETIRAcetam 500 MG TABLET PO SCH ×2 (08:12→16:32)
[2021-08-02] MEDS: DIVALPROEX SODIUM 500 MG DR TABLET PO SCH ×3 (08:12→16:32)
[2021-08-02 16:32] VITALS: BP 112/77
[2021-08-02] MEDS: QUEtiapine FUMARATE 300 MG TABLET PO SCH (20:31)
[2021-08-02] MEDS: IBUPROFEN 600 MG TABLET PO PRN (22:46)
[2021-08-03 08:00] VITALS: BP 124/75
[2021-08-03] MEDS: LevETIRAcetam 500 MG TABLET PO SCH ×2 (08:49→16:45)
[2021-08-03] MEDS: DIVALPROEX SODIUM 500 MG DR TABLET PO SCH ×3 (08:49→16:45)
[2021-08-03] MEDS: LACTULOSE 20 GM/30 ML SOLUTION UDCUP PO SCH ×3 (08:49→16:45)
[2021-08-03] MEDS: QUEtiapine FUMARATE 100 MG TABLET PO PRN (16:45)
[2021-08-03 16:57] VITALS: BP 148/98
[2021-08-03] MEDS: QUEtiapine FUMARATE 300 MG TABLET PO SCH (20:22)
[2021-08-04] MEDS: DIVALPROEX SODIUM 500 MG DR TABLET PO SCH ×3 (08:47→16:06)
[2021-08-04] MEDS: LevETIRAcetam 500 MG TABLET PO SCH ×2 (08:47→16:06)
[2021-08-04] MEDS: LACTULOSE 20 GM/30 ML SOLUTION UDCUP PO SCH ×2 (09:00→17:00)
[2021-08-04] MEDS: IBUPROFEN 600 MG TABLET PO PRN (09:40)
[2021-08-04 09:41] VITALS: BP 152/85
[2021-08-04 14:31] LABS: COVID AG,FIA SOURCE NASAL SWAB
[2021-08-04] MEDS: ACETAMINOPHEN 325 MG TABLET PO PRN (14:57)
[2021-08-04 16:18] VITALS: BP 143/92
[2021-08-04] MEDS: QUEtiapine FUMARATE 300 MG TABLET PO SCH ×2 (20:07→21:00)
[2021-08-05 08:50] VITALS: BP 108/70
[2021-08-05] MEDS: IBUPROFEN 600 MG TABLET PO PRN (08:54)
[2021-08-05] MEDS: LACTULOSE 20 GM/30 ML SOLUTION UDCUP PO SCH ×2 (09:00→17:00)
[2021-08-05] MEDS: LevETIRAcetam 500 MG TABLET PO SCH ×2 (09:19→17:01)
[2021-08-05] MEDS: DIVALPROEX SODIUM 500 MG DR TABLET PO SCH ×3 (09:19→17:01)
[2021-08-05 16:58] VITALS: BP 144/77
[2021-08-05] MEDS: QUEtiapine FUMARATE 300 MG TABLET PO SCH (20:35)
[2021-08-06] MEDS: LevETIRAcetam 500 MG TABLET PO SCH ×2 (08:49→16:36)
[2021-08-06] MEDS: DIVALPROEX SODIUM 500 MG DR TABLET PO SCH ×3 (08:49→16:36)
[2021-08-06 08:54] VITALS: BP 124/77
[2021-08-06] MEDS: IBUPROFEN 600 MG TABLET PO PRN (08:55)
[2021-08-06] MEDS: LACTULOSE 20 GM/30 ML SOLUTION UDCUP PO SCH ×2 (08:56→16:36)
[2021-08-06] MEDS: QUEtiapine FUMARATE 100 MG TABLET PO PRN (10:17)
[2021-08-06 16:39] VITALS: BP 134/78
[2021-08-06] MEDS: MAG HYDROX/AL HYDROX/SIMETH ES 30 ML SUSPENSION UDCUP PO PRN (17:18)
[2021-08-06] MEDS: QUEtiapine FUMARATE 300 MG TABLET PO SCH (20:55)
[2021-08-07] MEDS: LevETIRAcetam 500 MG TABLET PO SCH (08:20)
[2021-08-07] MEDS: LACTULOSE 20 GM/30 ML SOLUTION UDCUP PO SCH (08:20)
[2021-08-07] MEDS: DIVALPROEX SODIUM 500 MG DR TABLET PO SCH ×2 (08:20→12:24)
[2021-08-07 08:49] VITALS: BP 131/79
[2021-08-07] MEDS: MAG HYDROX/AL HYDROX/SIMETH ES 30 ML SUSPENSION UDCUP PO PRN (10:40)
== END 2021-08-07 12:25 | disposition home or self-care (01) | DRG 750 ==
LOC: EMS 14:02 → 3EI 07-30 02:00
PROVIDERS: ADMIT Psychiatry & Neurology Psychiatry; ATTEND Psychiatry & Neurology Psychiatry
DX: F25.0 Schizoaffective disorder, bipolar type (principal); E72.20 Disorder of urea cycle metabolism, unspecified; G40.909 Epilepsy, unspecified, not intractable, without status epilepticus; Q90.9 Down syndrome, unspecified; Z20.822 Contact with and (suspected) exposure to COVID-19; F12.90 Cannabis use, unspecified, uncomplicated; F41.9 Anxiety disorder, unspecified; F84.0 Autistic disorder; G47.00 Insomnia, unspecified; J45.909 Unspecified asthma, uncomplicated; K59.00 Constipation, unspecified; Z88.8 Allergy status to other drugs, medicaments and biological substances; Z91.51 Personal history of suicidal behavior
CPT/HCPCS: 80053; 80061; 80164; 81003; 82140; 85025; 87081; 93005; 99285; G0480; G0481

== ENCOUNTER 2021-08-26 18:58 | Emergency (ER) | payer MEDICAID, OTHER ==
[~2021-08-26] VITALS: Ht 175.3 cm; Wt 86.0 kg
[2021-08-26 20:59] LABS: AMPHET/METH SCREEN,URINE NEGATIVE (NEGATIVE); BARBITURATE SCREEN, URINE NEGATIVE (NEGATIVE); BENZODIAZEPINES SCREEN,URINE NEGATIVE (NEGATIVE); CANNABINOID SCREEN,URINE NEGATIVE (NEGATIVE); COCAINE SCREEN,URINE NEGATIVE (NEGATIVE); METHADONE SCREEN, URINE NEGATIVE (NEGATIVE); OPIATE SCREEN,URINE NEGATIVE (NEGATIVE)
[2021-08-26 21:01] LABS: PHENCYCLIDINE SCREEN,URINE NEGATIVE (NEGATIVE)
[2021-08-26 21:07] LABS: EOSINOPHILS % (AUTO) 2.8 % (1.0-6.0); HEMOGLOBIN 13.3 g/dL (13.5-17.5); LYMPHOCYTES # (AUTO) 1.8 K/uL (1.0-4.8); LYMPHOCYTES % (AUTO) 38.8 % (22.0-44.0); MEAN CORPUSCULAR HEMOGLOBIN 31.7 pg (26.0-34.0); MEAN CORPUSCULAR VOLUME 91 fL (80-100); MONOCYTES # (AUTO) 0.4 K/uL (0.1-1.0); MONOCYTES % (AUTO) 8.4 % (2.0-9.0); NEUTROPHILS # (AUTO) 2.2 K/uL (1.8-7.7); PLATELET COUNT (AUTO) 204 K/uL (150-450); RED CELL DISTRIBUTION WIDTH 12.9 % (11.5-14.5)
[2021-08-26 21:19] LABS: ANION GAP 6 mmol/L (8-16); CALCIUM, TOTAL 8.6 mg/dL (8.8-10.5); CARBON DIOXIDE 30 mmol/L (22-29); CHLORIDE 103 mmol/L (98-107); CREATININE 0.77 mg/dL (0.60-1.30); GLOMERULAR FILTR. RATE CALC > 60 mL/min (>60); GLUCOSE,RANDOM 95 mg/dL (70-110); SODIUM SERUM 139 mmol/L (136-145); UREA NITROGEN, BLOOD 8 mg/dL (7-18)
[2021-08-26 21:29] LABS: ALANINE AMINOTRANSFERASE 42 U/L (12-78); ALBUMIN 4.1 g/dL (3.4-5.0); ALKALINE PHOSPHATASE 71 U/L (46-116); ASPARTATE AMINOTRANSFERASE 26 U/L (15-37); BILIRUBIN,TOTAL 0.2 mg/dL (0.1-1.0); TOTAL PROTEIN, SERUM 7.8 g/dL (6.4-8.2); VALPROIC ACID 62 mcg/mL (50-100)
[2021-08-26 22:34] VITALS: BP 122/80
== END 2021-08-26 23:51 | disposition home or self-care (01) ==
LOC: EMS 19:02
DX: R45.851 Suicidal ideations (principal); J45.909 Unspecified asthma, uncomplicated; F31.9 Bipolar disorder, unspecified; F20.9 Schizophrenia, unspecified; Z91.018 Allergy to other foods; Z88.8 Allergy status to other drugs, medicaments and biological substances
CPT/HCPCS: 36415; 80053; 80164; 80307; 85025; 99285; G0480

== ENCOUNTER 2021-09-03 17:06 | Inpatient (IN) | payer MEDICAID, OTHER ==
[~2021-09-03] VITALS: Ht 167.6 cm; Wt 89.6 kg
[2021-09-03 17:45] LABS: COVID AG,FIA SOURCE NASOPHARYNGEAL
[2021-09-03 17:50] LABS: BASOPHILS % (AUTO) 0.4 % (0.0-2.0); EOSINOPHILS % (AUTO) 2.4 % (1.0-6.0); HEMATOCRIT 36.7 % (41-53); HEMOGLOBIN 12.7 g/dL (13.5-17.5); LYMPHOCYTES # (AUTO) 1.4 K/uL (1.0-4.8); LYMPHOCYTES % (AUTO) 38.9 % (22.0-44.0); MEAN CORPUSCULAR HEMOGLOBIN 31.7 pg (26.0-34.0); MEAN CORPUSCULAR HGB CONC 34.7 G/dL (31.0-37.0); MEAN CORPUSCULAR VOLUME 92 fL (80-100); MONOCYTES # (AUTO) 0.4 K/uL (0.1-1.0); MONOCYTES % (AUTO) 10.6 % (2.0-9.0); NEUTROPHILS # (AUTO) 1.8 K/uL (1.8-7.7); NEUTROPHILS % (AUTO) 47.7 % (40.0-70.0); PLATELET COUNT (AUTO) 188 K/uL (150-450); RED BLOOD CELL COUNT(AUTO) 4.01 MIL/uL (4.50-5.90)
[2021-09-03 17:58] LABS: ANION GAP 10 mmol/L (8-16); CALCIUM, TOTAL 8.1 mg/dL (8.8-10.5); CARBON DIOXIDE 27 mmol/L (22-29); CHLORIDE 104 mmol/L (98-107); CREATININE 0.76 mg/dL (0.60-1.30); GLOMERULAR FILTR. RATE CALC > 60 mL/min (>60); GLUCOSE,RANDOM 85 mg/dL (70-110); POTASSIUM 3.8 mmol/L (3.5-5.1); SODIUM SERUM 141 mmol/L (136-145); UREA NITROGEN, BLOOD 16 mg/dL (7-18)
[2021-09-03 18:05] LABS: ACETAMINOPHEN < 2 mcg/mL (10-30); ALANINE AMINOTRANSFERASE 43 U/L (12-78); ALBUMIN 3.6 g/dL (3.4-5.0); ALKALINE PHOSPHATASE 73 U/L (46-116); ASPARTATE AMINOTRANSFERASE 33 U/L (15-37); BILIRUBIN,TOTAL 0.3 mg/dL (0.1-1.0); TOTAL PROTEIN, SERUM 7.4 g/dL (6.4-8.2); VALPROIC ACID 83 mcg/mL (50-100)
[2021-09-03 18:23] LABS: AMPHET/METH SCREEN,URINE NEGATIVE (NEGATIVE); BARBITURATE SCREEN, URINE NEGATIVE (NEGATIVE); BENZODIAZEPINES SCREEN,URINE NEGATIVE (NEGATIVE); CANNABINOID SCREEN,URINE NEGATIVE (NEGATIVE); COCAINE SCREEN,URINE NEGATIVE (NEGATIVE); METHADONE SCREEN, URINE NEGATIVE (NEGATIVE); OPIATE SCREEN,URINE NEGATIVE (NEGATIVE)
[2021-09-03 18:24] LABS: PHENCYCLIDINE SCREEN,URINE NEGATIVE (NEGATIVE)
[2021-09-03 18:32] LABS: SALICYLATE 0.9 mg/dL (2.8-20.0)
[2021-09-03 21:15] VITALS: BP 132/78
[2021-09-04] MEDS ORDERED: MAGNESIUM HYDROXIDE SUSPENSION 30 ML UDCUP PO PRN (05:45)
[2021-09-04] MEDS ORDERED: OMEPRAZOLE 20 MG CAPSULE PO PRN (05:45)
[2021-09-04] MEDS ORDERED: ALBUTEROL SULFATE HFA 90 MCG/PUFF 8 GM INHALER IH PRN (05:45)
[2021-09-04] MEDS ORDERED: ONDANSETRON HCL 4 MG TABLET PO PRN (05:45)
[2021-09-04] MEDS ORDERED: MAG HYDROX/AL HYDROX/SIMETH ES 30 ML SUSPENSION UDCUP PO PRN (05:45)
[2021-09-04] MEDS ORDERED: PETROLATUM,WHITE 28 GM JELLY TP PRN (05:45)
[2021-09-04] MEDS ORDERED: CloNIDine HCL 0.1 MG TABLET PO PRN (05:45)
[2021-09-04] MEDS ORDERED: IBUPROFEN 600 MG TABLET PO PRN (05:45)
[2021-09-04] MEDS ORDERED: BACITRACIN 28 GM OINTMENT TP PRN (05:45)
[2021-09-04] MEDS ORDERED: DOCUSATE SODIUM 100 MG CAPSULE PO PRN (05:45)
[2021-09-04] MEDS ORDERED: BENZOCAINE/MENTHOL LOZENGE PO PRN (05:45)
[2021-09-04] MEDS ORDERED: LOPERAMIDE HCL 2 MG CAPSULE PO PRN (05:45)
[2021-09-04] MEDS: LevETIRAcetam 500 MG TABLET PO SCH ×2 (10:21→17:44)
[2021-09-04] MEDS: QUEtiapine FUMARATE 100 MG TABLET PO PRN (13:03)
[2021-09-04 17:05] VITALS: BP 113/71
[2021-09-04] MEDS: DIVALPROEX SODIUM 500 MG DR TABLET PO SCH (17:43)
[2021-09-04] MEDS: QUEtiapine FUMARATE 300 MG TABLET PO SCH (20:55)
[2021-09-05] MEDS: DIVALPROEX SODIUM 500 MG DR TABLET PO SCH ×3 (09:42→16:00)
[2021-09-05] MEDS: LevETIRAcetam 500 MG TABLET PO SCH ×2 (09:42→16:01)
[2021-09-05] MEDS: MULTIVITAMINS WITH IRON TABLET PO SCH (09:43)
[2021-09-05] MEDS: QUEtiapine FUMARATE 100 MG TABLET PO PRN (16:02)
[2021-09-05 16:39] VITALS: BP 136/79
[2021-09-05] MEDS: ACETAMINOPHEN 325 MG TABLET PO PRN (16:49)
[2021-09-05] MEDS: QUEtiapine FUMARATE 300 MG TABLET PO SCH (20:26)
[2021-09-06] MEDS: MULTIVITAMINS WITH IRON TABLET PO SCH (09:57)
[2021-09-06] MEDS: LevETIRAcetam 500 MG TABLET PO SCH ×2 (09:57→16:10)
[2021-09-06] MEDS: DIVALPROEX SODIUM 500 MG DR TABLET PO SCH ×5 (09:57→21:00)
[2021-09-06] MEDS: ACETAMINOPHEN 325 MG TABLET PO PRN (12:43)
[2021-09-06 16:23] VITALS: BP 135/99
[2021-09-06] MEDS: QUEtiapine FUMARATE 100 MG TABLET PO PRN (19:35)
[2021-09-06] MEDS: QUEtiapine FUMARATE 300 MG TABLET PO SCH ×2 (20:29→21:00)
[2021-09-07] MEDS: MULTIVITAMINS WITH IRON TABLET PO SCH (09:23)
[2021-09-07] MEDS: DIVALPROEX SODIUM 500 MG DR TABLET PO SCH ×3 (09:23→20:15)
[2021-09-07] MEDS: LevETIRAcetam 500 MG TABLET PO SCH ×2 (09:23→16:19)
[2021-09-07 09:44] VITALS: BP 103/62
[2021-09-07] MEDS ORDERED: DIVA-112 PO (15:46)
[2021-09-07] MEDS ORDERED: QUET300T19 PO (15:46)
[2021-09-07 16:00] VITALS: BP 115/69
[2021-09-07] MEDS: QUEtiapine FUMARATE 300 MG TABLET PO SCH (20:15)
[2021-09-08 00:30] VITALS: BP 123/80
[2021-09-08] MEDS: QUEtiapine FUMARATE 100 MG TABLET PO PRN (00:43)
[2021-09-08 06:46] LABS: CHOL/HDL RATIO 5.4 (4.2-7.3)
[2021-09-08] MEDS: DIVALPROEX SODIUM 500 MG DR TABLET PO SCH (08:55)
[2021-09-08] MEDS: MULTIVITAMINS WITH IRON TABLET PO SCH (08:55)
[2021-09-08] MEDS: LevETIRAcetam 500 MG TABLET PO SCH (08:55)
== END 2021-09-08 10:05 | disposition home or self-care (01) | DRG 750 ==
LOC: EMS 17:12 → 3EI 19:06
PROVIDERS: ADMIT Psychiatry & Neurology Psychiatry; ATTEND Psychiatry & Neurology Psychiatry
DX: F25.0 Schizoaffective disorder, bipolar type (principal); E72.20 Disorder of urea cycle metabolism, unspecified; G40.909 Epilepsy, unspecified, not intractable, without status epilepticus; Q90.9 Down syndrome, unspecified; F12.90 Cannabis use, unspecified, uncomplicated; F41.9 Anxiety disorder, unspecified; G47.00 Insomnia, unspecified; J45.909 Unspecified asthma, uncomplicated; Z20.822 Contact with and (suspected) exposure to COVID-19; K59.00 Constipation, unspecified; K76.9 Liver disease, unspecified; T42.6X1A Poisoning by other antiepileptic and sedative-hypnotic drugs, accidental (unintentional), initial encounter; Y92.89 Other specified places as the place of occurrence of the external cause; Z72.89 Other problems related to lifestyle; Z88.1 Allergy status to other antibiotic agents; Z91.013 Allergy to seafood; Z88.8 Allergy status to other drugs, medicaments and biological substances; Z91.018 Allergy to other foods
CPT/HCPCS: 80053; 80061; 80164; 85025; 87081; 99285; G0480; G0481

== ENCOUNTER 2021-09-14 21:21 | Inpatient (IN) | payer MEDICAID, OTHER ==
[~2021-09-14] VITALS: Ht 175.3 cm; Wt 90.3 kg
[~2021-09-14 21:21] MED LIST changes: +QUET300T19 PO; -QUET300T2 PO
[2021-09-14 22:23] LABS: BASOPHILS % (AUTO) 0.5 % (0.0-2.0); EOSINOPHILS % (AUTO) 1.1 % (1.0-6.0); LYMPHOCYTES # (AUTO) 1.8 K/uL (1.0-4.8); LYMPHOCYTES % (AUTO) 23.3 % (22.0-44.0); MEAN CORPUSCULAR HEMOGLOBIN 31.4 pg (26.0-34.0); MEAN CORPUSCULAR HGB CONC 34.3 G/dL (31.0-37.0); MEAN CORPUSCULAR VOLUME 92 fL (80-100); MONOCYTES # (AUTO) 0.7 K/uL (0.1-1.0); MONOCYTES % (AUTO) 9.3 % (2.0-9.0); NEUTROPHILS # (AUTO) 5.1 K/uL (1.8-7.7); NEUTROPHILS % (AUTO) 65.8 % (40.0-70.0); PLATELET COUNT (AUTO) 200 K/uL (150-450); RED BLOOD CELL COUNT(AUTO) 4.15 MIL/uL (4.50-5.90); RED CELL DISTRIBUTION WIDTH 13.3 % (11.5-14.5)
[2021-09-14 22:35] LABS: ANION GAP 12 mmol/L (8-16); CALCIUM, TOTAL 8.9 mg/dL (8.8-10.5); CARBON DIOXIDE 26 mmol/L (22-29); CHLORIDE 100 mmol/L (98-107); CREATININE 0.95 mg/dL (0.60-1.30); GLOMERULAR FILTR. RATE CALC > 60 mL/min (>60); GLUCOSE,RANDOM 96 mg/dL (70-110); POTASSIUM 3.9 mmol/L (3.5-5.1); SODIUM SERUM 138 mmol/L (136-145); UREA NITROGEN, BLOOD 8 mg/dL (7-18)
[2021-09-14 22:41] LABS: ALANINE AMINOTRANSFERASE 44 U/L (12-78); ALBUMIN 4.2 g/dL (3.4-5.0); ALKALINE PHOSPHATASE 71 U/L (46-116); ASPARTATE AMINOTRANSFERASE 43 U/L (15-37); BILIRUBIN,TOTAL 0.3 mg/dL (0.1-1.0); VALPROIC ACID 44 mcg/mL (50-100)
[2021-09-14 22:42] LABS: ACETAMINOPHEN < 2 mcg/mL (10-30)
[2021-09-14 22:59] LABS: AMPHET/METH SCREEN,URINE NEGATIVE (NEGATIVE); BARBITURATE SCREEN, URINE NEGATIVE (NEGATIVE); BENZODIAZEPINES SCREEN,URINE NEGATIVE (NEGATIVE); CANNABINOID SCREEN,URINE NEGATIVE (NEGATIVE); COCAINE SCREEN,URINE NEGATIVE (NEGATIVE); METHADONE SCREEN, URINE NEGATIVE (NEGATIVE); OPIATE SCREEN,URINE NEGATIVE (NEGATIVE)
[2021-09-14 23:00] LABS: PHENCYCLIDINE SCREEN,URINE NEGATIVE (NEGATIVE)
[2021-09-14 23:10] LABS: COVID AG,FIA SOURCE NASOPHARYNGEAL
[2021-09-14] MEDS ORDERED: QUEtiapine FUMARATE 100 MG TABLET PO PRN (23:45)
[2021-09-15 02:21] LABS: CHOL/HDL RATIO 4.7 (4.2-7.3); CHOLESTEROL 192 mg/dL (131-200); HDL CHOLESTEROL 41 mg/dL (40-60); LDL CHOL (CALC.) 134 mg/dL (0-130); TRIGLYCERIDES 85 mg/dL (15-150)
[2021-09-15 02:55] LABS: APPEARANCE,URINE CLEAR (CLEAR); BILIRUBIN,URINE NEGATIVE (NEGATIVE); GLUCOSE, URINE (UA) NEGATIVE (NEGATIVE); KETONES,URINE NEGATIVE (NEGATIVE); LEUKOCYTE ESTERASE ,URINE NEGATIVE (NEGATIVE); NITRATE,URINE NEGATIVE (NEGATIVE); OCCULT BLOOD,URINE NEGATIVE (NEGATIVE); PH,URINE 6.5 (5.0-8.0); PROTEIN,URINE NEGATIVE (NEGATIVE); UROBILINOGEN,URINE 0.2 mg/dL (<=1.0)
[2021-09-15 13:37] VITALS: BP 126/88
[2021-09-15] MEDS ORDERED: INFLUENZA VIRUS VACCINE QVS 2021-22 (6MO+)/PF 60 MCG/0.5 ML SYRINGE IM. ONE (14:30)
[2021-09-15] MEDS ORDERED: -PHARMACY VACCINE NOTE- MISC ONE (14:30)
[2021-09-15] MEDS: DIVALPROEX SODIUM 500 MG DR TABLET PO SCH ×2 (16:06→20:14)
[2021-09-15 16:39] VITALS: BP 126/71
[2021-09-15] MEDS ORDERED: CloNIDine HCL 0.1 MG TABLET PO PRN (19:00)
[2021-09-15] MEDS ORDERED: ALBUTEROL SULFATE HFA 90 MCG/PUFF 8 GM INHALER IH PRN (19:00)
[2021-09-15] MEDS ORDERED: ONDANSETRON HCL 4 MG TABLET PO PRN (19:00)
[2021-09-15] MEDS ORDERED: BACITRACIN 28 GM OINTMENT TP PRN (19:00)
[2021-09-15] MEDS ORDERED: LOPERAMIDE HCL 2 MG CAPSULE PO PRN (19:00)
[2021-09-15] MEDS ORDERED: BENZOCAINE/MENTHOL LOZENGE PO PRN (19:00)
[2021-09-15] MEDS ORDERED: MAG HYDROX/AL HYDROX/SIMETH ES 30 ML SUSPENSION UDCUP PO PRN (19:00)
[2021-09-15] MEDS ORDERED: PETROLATUM,WHITE 28 GM JELLY TP PRN (19:00)
[2021-09-15] MEDS: QUEtiapine FUMARATE 300 MG TABLET PO SCH (20:13)
[2021-09-15] MEDS: IBUPROFEN 600 MG TABLET PO PRN (20:15)
[2021-09-16 04:27] VITALS: BP 117/64
[2021-09-16] MEDS: OMEPRAZOLE 20 MG CAPSULE PO SCH (08:43)
[2021-09-16] MEDS: DIVALPROEX SODIUM 500 MG DR TABLET PO SCH ×3 (08:43→20:40)
[2021-09-16] MEDS: LevETIRAcetam 500 MG TABLET PO SCH ×2 (08:49→17:03)
[2021-09-16 10:05] VITALS: BP 124/72
[2021-09-16 16:16] VITALS: BP 106/60
[2021-09-16] MEDS: QUEtiapine FUMARATE 300 MG TABLET PO SCH (20:40)
[2021-09-17 06:02] VITALS: BP 114/60
[2021-09-17] MEDS: LevETIRAcetam 500 MG TABLET PO SCH ×2 (08:18→16:30)
[2021-09-17] MEDS: OMEPRAZOLE 20 MG CAPSULE PO SCH (08:18)
[2021-09-17] MEDS: DIVALPROEX SODIUM 500 MG DR TABLET PO SCH ×3 (08:18→20:06)
[2021-09-17 08:51] VITALS: BP 120/70
[2021-09-17 16:27] VITALS: BP 140/81
[2021-09-17] MEDS: QUEtiapine FUMARATE 300 MG TABLET PO SCH (20:06)
[2021-09-18 05:46] VITALS: BP 116/60
[2021-09-18] MEDS: LevETIRAcetam 500 MG TABLET PO SCH ×2 (08:08→16:15)
[2021-09-18] MEDS: DIVALPROEX SODIUM 500 MG DR TABLET PO SCH ×3 (08:08→20:18)
[2021-09-18] MEDS: OMEPRAZOLE 20 MG CAPSULE PO SCH (08:08)
[2021-09-18 08:46] VITALS: BP 117/82
[2021-09-18] MEDS: QUEtiapine FUMARATE 100 MG TABLET PO PRN (10:31)
[2021-09-18 16:16] VITALS: BP 131/72
[2021-09-18] MEDS: QUEtiapine FUMARATE 300 MG TABLET PO SCH (20:18)
[2021-09-19 04:38] VITALS: BP 128/68
[2021-09-19 08:43] VITALS: BP 104/56
[2021-09-19] MEDS: OMEPRAZOLE 20 MG CAPSULE PO SCH (08:57)
[2021-09-19] MEDS: QUEtiapine FUMARATE 100 MG TABLET PO PRN ×2 (08:57→17:04)
[2021-09-19] MEDS: DIVALPROEX SODIUM 500 MG DR TABLET PO SCH ×3 (08:57→20:18)
[2021-09-19] MEDS: LevETIRAcetam 500 MG TABLET PO SCH ×2 (08:57→16:32)
[2021-09-19] MEDS ORDERED: LORazepam 2 MG/ML VIAL ONE (15:38)
[2021-09-19] MEDS ORDERED: DiphenhydrAMINE HCL 50 MG/ML VIAL ONE (15:39)
[2021-09-19] MEDS ORDERED: HALOPERIDOL LACTATE 5 MG/ML VIAL ONE (15:39)
[2021-09-19] MEDS ORDERED: DiphenhydrAMINE HCL 50 MG/ML VIAL IM ONE (15:45)
[2021-09-19] MEDS ORDERED: HALOPERIDOL LACTATE 5 MG/ML VIAL IM ONE (15:45)
[2021-09-19] MEDS ORDERED: LORazepam 2 MG/ML VIAL IM ONE (15:45)
[2021-09-19 16:10] VITALS: BP 136/84
[2021-09-19] MEDS: QUEtiapine FUMARATE 300 MG TABLET PO SCH (20:18)
[2021-09-20 05:39] VITALS: BP 128/74
[2021-09-20 08:25] VITALS: BP 115/72
[2021-09-20] MEDS: DIVALPROEX SODIUM 500 MG DR TABLET PO SCH ×3 (08:52→20:00)
[2021-09-20] MEDS: OMEPRAZOLE 20 MG CAPSULE PO SCH (08:52)
[2021-09-20] MEDS: QUEtiapine FUMARATE 100 MG TABLET PO PRN ×2 (08:52→12:56)
[2021-09-20] MEDS: LevETIRAcetam 500 MG TABLET PO SCH ×2 (08:53→16:03)
[2021-09-20] MEDS: IBUPROFEN 600 MG TABLET PO PRN ×2 (10:56→20:28)
[2021-09-20 16:28] VITALS: BP 126/70
[2021-09-20] MEDS: QUEtiapine FUMARATE 300 MG TABLET PO SCH (20:01)
[2021-09-20 20:19] VITALS: BP 126/73
[2021-09-21 00:51] VITALS: BP 122/68
[2021-09-21 04:30] VITALS: BP 140/77
[2021-09-21] MEDS: IBUPROFEN 600 MG TABLET PO PRN ×2 (05:26→12:11)
[2021-09-21] MEDS: QUEtiapine FUMARATE 100 MG TABLET PO PRN (08:23)
[2021-09-21] MEDS: OMEPRAZOLE 20 MG CAPSULE PO SCH (08:23)
[2021-09-21] MEDS: DIVALPROEX SODIUM 500 MG DR TABLET PO SCH ×2 (08:23→16:35)
[2021-09-21] MEDS: LevETIRAcetam 500 MG TABLET PO SCH ×2 (08:23→16:35)
[2021-09-21 08:26] VITALS: BP 133/82
[2021-09-21 10:11] LABS: GLUCOMETER DEV NAME(LOC) POC.BV
[2021-09-21] MEDS ORDERED: DIVA-112 PO (12:05)
[2021-09-21] MEDS ORDERED: QUET300T19 PO (12:05)
[2021-09-21] MEDS ORDERED: LEVE500T20 PO (13:07)
[2021-09-21 16:18] VITALS: BP 122/83
== END 2021-09-21 21:51 | disposition home or self-care (01) | DRG 750 ==
LOC: EMS 22:54 → B3A 09-15 07:57 → B2S 09-20 20:00
PROVIDERS: ADMIT Psychiatry & Neurology Psychiatry; ATTEND Psychiatry & Neurology Psychiatry
DX: F25.9 Schizoaffective disorder, unspecified (principal); E72.20 Disorder of urea cycle metabolism, unspecified; F41.9 Anxiety disorder, unspecified; G40.909 Epilepsy, unspecified, not intractable, without status epilepticus; F12.90 Cannabis use, unspecified, uncomplicated; K76.9 Liver disease, unspecified; G47.00 Insomnia, unspecified; J45.909 Unspecified asthma, uncomplicated; F19.90 Other psychoactive substance use, unspecified, uncomplicated; Z20.822 Contact with and (suspected) exposure to COVID-19; K59.00 Constipation, unspecified; Z90.49 Acquired absence of other specified parts of digestive tract; Z91.013 Allergy to seafood; Z88.8 Allergy status to other drugs, medicaments and biological substances; Z91.09 Other allergy status, other than to drugs and biological substances
CPT/HCPCS: 80053; 80061; 80164; 81003; 85025; 99285; G0480; G0481; J1200; J1630; J2060